=== PATIENT | female | born 1985 | race Caucasian/White ===

== ENCOUNTER 2017-01-27 19:07 | Emergency (ER) | payer OTHER ==
[~2017-01-27] VITALS: Ht 157.5 cm; Wt 94.0 kg
[~2017-01-27 19:07] MED LIST: CLC100 PO; DIPH25CA37 PO; LAMO25TA PO; OXYC-57 PO; PHEN-876 PO; SUMA20SP
[2017-01-27 19:14] VITALS: TEMP 37; Ht 157.5 cm; Wt 94.0 kg
[2017-01-27 20:36] LABS: HEMATOCRIT 44.8 % (37-47); MEAN CELL VOLUME 86.8 fL (80-100); MEAN CORPUSCULAR HEMOGLOBIN 29.7 pg (25-34); MEAN CORPUSCULAR HGB CONC 34.2 g/dl (32-36); MEAN PLATELET VOLUME 10.1 fL (7.4-10.4); PLATELET COUNT 264 K/uL (130-400); RED BLOOD COUNT 5.16 M/uL (4.2-5.4); WHITE BLOOD COUNT 8.97 K/uL (4.8-10.8)
--- NOTE | 2017-01-27 20:36 | DIAGNOSTIC IMAGING REPORT ---
CHEST ONE VIEW PORTABLE CLINICAL HISTORY: Chest pain. COMPARISON STUDY: Chest radiograph November 16, 2015. FINDINGS: Lung volumes are normal. No pneumothorax or pleural effusion is present. Pulmonary vascularity is normal. Cardiac size is normal. There is no evidence of pulmonary edema. IMPRESSION: No acute cardiopulmonary findings. Electronically signed by: Dameon Wu M.D. 01/27/2017 8:35 PM Dictated Date/Time: 01/27/2017 8:34 PM
[2017-01-27 20:46] LABS: PARTIAL THROMBOPLASTIN RATIO 1.1; PROTHROMBIN TIME (PATIENT) 10.7 SECONDS (9.0-12.0)
[2017-01-27 20:54] LABS: ALT/SGPT 17 U/L (12-78); AST/SGOT 12 U/L (15-37); BLOOD UREA NITROGEN 9 mg/dl (7-18); CALCIUM 8.9 mg/dl (8.5-10.1); CARBON DIOXIDE 29 mmol/L (21-32); CHLORIDE 106 mmol/L (98-107); CREATININE 0.95 mg/dl (0.60-1.20); GLUCOSE 83 mg/dl (70-99); POTASSIUM 3.5 mmol/L (3.5-5.1); SODIUM 139 mmol/L (136-145)
[2017-01-27 20:59] LABS: ALB/GLOB RATIO 0.9 (0.9-2); ALKALINE PHOSPHATASE 105 U/L (45-117)
[2017-01-27] MEDS ORDERED: IMTIN5 (21:31)
[2017-01-27] MEDS ORDERED: TRL300 PO (21:31)
[2017-01-27 22:05] VITALS: BP 111/97; PULSE 66; O2SAT 97
[2017-01-27] MEDS ORDERED: VNTHFA/IN INH (22:19)
[2017-01-27] MEDS ORDERED: ATV1 PO (22:22)
[2017-01-27] MEDS ORDERED: ONDA4TAB9 PO (22:22)
[2017-01-27] MEDS ORDERED: SRQ25 PO (22:22)
[2017-01-27] MEDS ORDERED: MTR/600 PO (22:22)
--- NOTE | 2017-01-28 00:29 | EMERGENCY ROOM VISIT NOTE ---
History Report prepared by Gelacio: Ruthann Mortensen Under the Supervision of: Dr. Zack Hall D.O. 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 The patient states that the episodes of pain last about 20-45 minutes. The patient states that she has a history of this chest pain and gets it every once in a while but does not recall the last time she had this pain. She states that she got the pain yesterday while she was gardening. She states that when she has bad anxiety she also experiences the pain and usually takes Ativan and it reduces the pain. The patient states that she is a smoke but denies any pain in jaw or arm, nausea, vomiting, diarrhea, coughing up blood. The patient states that she did have hysterectomy in July. The patient also denies any recent travel, recent surgeries, previous clots, or history of cancer. 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 Review of Systems See HPI for pertinent positives & negatives. A total of 10 systems reviewed and were otherwise negative. Past Medical & Surgical Medical Problems: (1) Acute anxiety (2) Asthma, Unspecified (3) Bipolar II disorder (4) Bronchitis (5) Cannabis abuse (6) Carbon monoxide poisoning (7) Carbon monoxide poisoning (8) Chest pain (9) Cholecystectomy (10) Chronic pelvic pain in female (11) Deliberate self-cutting (12) Depress Disorder-Unspec (13) Depression (14) Depression (15) Depression (16) Diverticulosis Colon (W/O Ment Of Hemorrhage) (17) Endometriosis (18) Endometriosis (19) Endoscopic retrograde cholangiopancreatography (20) Headache (21) Headache (22) Kidney stone (23) Migraine (24) Migraine (25) Migraine (26) Migraine headache (27) Migraine Unspecified W/O Intractable Migraine (28) Nausea (29) Nausea, vomiting, and diarrhea (30) Ovarian cyst (31) Pneumonia (32) Removal of ovarian cyst (33) Renal colic on left side (34) Renal colic on left side (35) SOB (shortness of breath) (36) Syncope (37) Tubal Ligation Status (38) Ureteral stent placement Surgical Problems: (1) S/P BSO (bilateral salpingo-oophorectomy) (2) S/P laparoscopic hysterectomy Family History Cancer Hypertension Kidney stone Lung disease Social History Smoking Status: Current Every Day Smoker Alcohol Use: none Drug Use: marijuana Marital Status: Housing Status: lives with family Occupation Status: unemployed Current/Historical Medications Scheduled Diphenhydramine Hcl (Benadryl Allergy), 50 MG PO PRN UD Estrogens, Conjugated (Premarin), 0.625 MG PO QAM Oxcarbazepine (Oxcarbazepine), 300 MG PO AMPM Pediatric Multiple Vitamin W/ (Flintstones Chewable), 1 TAB PO QAM Prazosin HCl (Prazosin HCl), 1 MG PO HS Quetiapine Fumarate (Quetiapine Fumarate), 25 MG PO HS Sumatriptan Succinate (Imitrex Nasal [place]), 1 SPRAY NA PRN UD Scheduled PRN Albuterol Hfa (Ventolin Hfa), 2 PUFFS INH QID PRN for SOB/Wheezing Fluticasone Propionate (Nasal) (Flonase Allergy Relief), 2 SPRAYS YOLIE DAILY PRN for Allergy Symptoms Ibuprofen (Ibuprofen), 600 MG PO Q6H PRN for Pain Lorazepam (Lorazepam), 1 MG PO Q6H PRN for Anxiety Ondansetron (Ondansetron HCl), 4 MG PO TID PRN for Nausea Allergies Coded Allergies: Chlorine (Verified Allergy, Unknown, BLEACH-ITCHY, 07/22/16) Topiramate (Verified Allergy, Unknown, low bp-fainting, 07/22/16) Prednisone (Verified Adverse Reaction, Intermediate, PSYCOTIC, 07/22/16) Propranolol (Verified Adverse Reaction, Intermediate, dizziness-LOW BP FAINTING, 07/22/16) Metoclopramide (Verified Adverse Reaction, Mild, makes me feel "like i am on speed", 07/22/16) pt Physical Exam Vital Signs Date Time Temp Pulse Resp B/P Pulse Ox O2 Delivery O2 Flow Rate FiO2 01/27/17 22:05 66 20 111/97 97 01/27/17 21:09 74 18 115/80 99 Room Air 01/27/17 20:30 96 Room Air 01/27/17 20:26 Room Air 01/27/17 20:17 75 01/27/17 20:13 74 133/89 100 Room Air 01/27/17 19:17 98 Room Air 01/27/17 19:14 37.0 87 20 130/83 98 Room Air Physical Exam GENERAL: Sitting up in bed, disheveled, alert, well appearing, well nourished, no distress, non-toxic EYE EXAM: normal conjunctiva OROPHARYNX: no exudate, no erythema, lips, buccal mucosa, and tongue normal and mucous membranes are moist NECK: supple, no nuchal rigidity, no adenopathy, non-tender LUNGS: Clear to auscultation. Normal chest wall mechanics HEART: no murmurs, S1 normal and S2 normal ABDOMEN: abdomen soft, non-tender, normo-active bowel sounds, no masses, no rebound or guarding. BACK: Back is symmetrical on inspection and there is no deformity, no midline tenderness, no CVA tenderness. SKIN: no rashes and no bruising UPPER EXTREMITIES: upper extremities are grossly normal. Radial pulses equal and bilateral. LOWER EXTREMITIES: No pitting edema. Calf pulse equal bilaterally. NEURO EXAM: Normal sensorium, cranial nerves II-XII grossly intact, normal speech, no gross weakness of arms, no gross weakness of legs. Medical Decision & Procedures Laboratory Results 01/27/17 20:22 01/27/17 20:22 Test 01/27/17 20:22 01/27/17 20:34 Red Blood Count 5.16 M/uL (4.2-5.4) Mean Corpuscular Volume 86.8 fL (80-100) Mean Corpuscular Hemoglobin 29.7 pg (25-34) Mean Corpuscular Hemoglobin Concent 34.2 g/dl (32-36) RDW Standard Deviation 40.7 fL (36.4-46.3) RDW Coefficient of Variation 12.7 % (11.5-14.5) Mean Platelet Volume 10.1 fL (7.4-10.4) Prothrombin Time 10.7 SECONDS (9.0-12.0) Prothromb Time International Ratio 1.0 (0.9-1.1) Activated Partial Thromboplast Time 27.4 SECONDS (21.0-31.0) Partial Thromboplastin Ratio 1.1 D-Dimer 300 ug/L FEU (0-500) Anion Gap 4.0 mmol/L (3-11) Est Creatinine Clear Calc Drug Dose 90.0 ml/min Estimated GFR () 91.2 Estimated GFR (Non- 78.7 BUN/Creatinine Ratio 9.0 (10-20) Calcium Level 8.9 mg/dl (8.5-10.1) Total Bilirubin 0.3 mg/dl (0.2-1) Aspartate Amino Transf (AST/SGOT) 12 U/L (15-37) Alanine Aminotransferase (ALT/SGPT) 17 U/L (12-78) Alkaline Phosphatase 105 U/L (45-117) Total Creatine Kinase 50 U/L (26-192) Creatine Kinase MB < 0.5 ng/ml (0.5-3.6) Creatine Kinase MB Ratio (0-3.0) Troponin I < 0.015 ng/ml (0-0.045) Total Protein 8.0 gm/dl (6.4-8.2) Albumin 3.8 gm/dl (3.4-5.0) Globulin 4.2 gm/dl (2.5-4.0) Albumin/Globulin Ratio 0.9 (0.9-2) Bedside Troponin I 0.000 ng/ml (0-0.045) Laboratory results per my review. ECG Indication: chest pain Rate (beats per minute): 77 Rhythm: sinus rhythm Findings: no ectopy, other (Normal axis, normal interval) ED Course ED COURSE: Vital signs were reviewed and showed normal vitals The patients medical record was reviewed The above diagnostic studies were performed and reviewed. ED treatments and interventions as stated above. 2024: The patient was evaluated in room C2B. A complete history and physical examination was performed. 2143: Upon reevaluation, the patient is resting comfortably.I discussed my findings with the patient and she understands and agrees with the treatment plan. She states that she believes that this pain is purely anxiety related and wishes to not stay to wait for repeated troponin.Based on the patients age, coexisting illnesses, exam and lab findings the decision to treat as an outpatient was made.The patient remained stable while under my care.The patient appeared well at the time of discharge.. Medical Decision Differential diagnoses includes but is not limited to acute coronary syndrome, myocardial infarction, pericarditis, pulmonary embolus, aortic dissection, pneumonia, pneumothorax, musculoskeletal, shingles, esophageal. Patient is a 32-year-old female who presents the ER for precordial chest pain which has been off and on present since yesterday. Pain is not worsened with exertion. She denies any history of diabetes, hypertension, hyperlipidemia or CAD. No history of sudden in her family at a young age. She also denies any swelling of her legs, coughing up blood, recent trips, recent surgeries, but does admit to smoking. No previous PEs. Symptoms are consistent with her previous bouts of anxiety. Labs were obtained. Chest x-ray and EKG were unremarkable. D-dimer was negative. Troponin was negative. Chest pain has been fairly persistent for the past 24 hours and with the negative troponin and her history I do not believe that this is cardiac. To comply with the Heartscore I recommended a repeat troponin for which she declined. She notes that this is purely her anxiety and requested to be discharged. I informed her of the risk and benefits of this and she was discharged following informed refusal of care. Discussed with Pt concerning signs and symptoms to watch out for. Pt was instructed to follow up with their PCP and discussed with the patient their option to return to the ED at anytime for persistent or worsening symptoms. The appropriate anticipatory guidance and out-patient management, including indications for return to the emergency department, were explained at length to the patient and understood. Impression Primary Impression: Precordial chest pain Scribe Attestation The scribe's documentation has been prepared under my direction and personally reviewed by me in its entirety. I confirm that the note above accurately reflects all work, treatment, procedures, and medical decision making performed by me. Departure Information Dispostion Home / Self-Care Referrals Tanesha Odonnell D.O. (PCP) Forms HOME CARE DOCUMENTATION FORM, IMPORTANT VISIT INFORMATION Patient Instructions My [facility] Additional Instructions Please follow up with your primary care doctor with in the next 24 hours. Any worsening of your symptoms, please return to the ED immediately. This includes recurrence of her chest pain, shortness of breath, passing out, coughing up blood, or any other concerning signs or symptoms from your standpoint.
[2017-04-10] MEDS ORDERED: PEDICHW50 PO (13:18)
[2017-04-10] MEDS ORDERED: DIPH1TAB87 PO (21:31)
== END 2017-01-27 22:06 | disposition home or self-care (01) ==
LOC: C.EDB 19:08 → C.EDC 22:06
DX: R07.2 Precordial pain (principal); J45.909 Unspecified asthma, uncomplicated; N80.9 Endometriosis, unspecified; F32.9 Major depressive disorder, single episode, unspecified; F41.9 Anxiety disorder, unspecified; F17.200 Nicotine dependence, unspecified, uncomplicated; Z87.442 Personal history of urinary calculi; Z87.01 Personal history of pneumonia (recurrent); Z90.710 Acquired absence of both cervix and uterus; Z90.49 Acquired absence of other specified parts of digestive tract; Z98.51 Tubal ligation status; Z90.722 Acquired absence of ovaries, bilateral; Z90.79 Acquired absence of other genital organ(s); Z98.890 Other specified postprocedural states; Z82.49 Family history of ischemic heart disease and other diseases of the circulatory system; Z84.1 Family history of disorders of kidney and ureter; Z79.899 Other long term (current) drug therapy

== ENCOUNTER 2017-02-07 20:08 | Inpatient (IN) | payer OTHER ==
[~2017-02-07] VITALS: Ht 157.5 cm; Wt 92.7 kg
[~2017-02-07 20:08] MED LIST changes: +ATV1 PO; -CLC100 PO; -DIPH25CA37 PO; +IMTIN5; -LAMO25TA PO; +MTR/600 PO; +ONDA4TAB9 PO; -OXYC-57 PO; -PHEN-876 PO; +SRQ25 PO; -SUMA20SP; +TRL300 PO; +VNTHFA/IN INH
[2017-02-07] MEDS ORDERED: LORAZEPAM 0.5 MG TAB SL STA (21:12)
[2017-02-07 21:34] LABS: BASO % 0.4 %; BASO ABS # 0.04 K/uL (0-0.2); COMPLETE YES; EOS % 2.7 %; HEMATOCRIT 43.6 % (37-47); IG% 0.2 %; LYMPH % 24.9 %; LYMPH ABS # 2.37 K/uL (1.2-3.4); MEAN CORPUSCULAR HEMOGLOBIN 30.7 pg (25-34); MEAN CORPUSCULAR HGB CONC 35.3 g/dl (32-36); MEAN PLATELET VOLUME 10.4 fL (7.4-10.4); MONO % 6.8 %; PLATELET COUNT 258 K/uL (130-400); RED BLOOD COUNT 5.01 M/uL (4.2-5.4); WHITE BLOOD COUNT 9.51 K/uL (4.8-10.8)
[2017-02-07 21:48] LABS: URINE APPEARANCE CLEAR (CLEAR); URINE BILIRUBIN NEG (NEG); URINE COLOR YELLOW; URINE NITRITE NEG (NEG); URINE SPECIFIC GRAVITY 1.009 (1.000-1.030); UROBILINOGEN NEG (NEG)
[2017-02-07 21:51] LABS: MANUAL MICROSCOPIC REQUIRED? NO; REVIEW REQ? NO
[2017-02-07 21:52] LABS: BUN/CREATININE RATIO 6.7 (10-20); CREATININE 0.89 mg/dl (0.60-1.20); POTASSIUM 3.7 mmol/L (3.5-5.1)
[2017-02-07 21:56] LABS: CALCIUM 9.4 mg/dl (8.5-10.1)
[2017-02-07 22:03] LABS: THYROID STIMULATING HORMONE 1.53 uIu/ml (0.300-4.500)
[2017-02-07 22:25] LABS: BENZODIAZEPINE, URINE NEG (NEG); COCAINE,URINE NEG (NEG); PHENCYCLIDINE, URINE NEG (NEG)
[2017-02-08] MEDS ORDERED: NURSING VERBAL MED ORDER ONE (00:30)
[2017-02-08 00:49] VITALS: O2SAT 96
[2017-02-08 00:55] VITALS: BP 114/83; PULSE 78; TEMP 36.7; Ht 157.5 cm; Wt 92.7 kg
[2017-02-08] MEDS ORDERED: LORAZEPAM 1 MG TAB PO PRN (01:30)
[2017-02-08] MEDS ORDERED: ACETAMINOPHEN 325 MG TAB PO PRN (01:30)
[2017-02-08] MEDS ORDERED: ALUMINUM/MAGNESIUM SUSP 30 ML UDC PO PRN (01:30)
[2017-02-08] MEDS ORDERED: SODIUM CHLORIDE 0.65% NA SOLN 45 ML (OCEAN) PRN (01:30)
[2017-02-08] MEDS ORDERED: QUETIAPINE FUMARATE 25 MG TAB PO ONE (01:30)
[2017-02-08] MEDS ORDERED: MAGNESIUM HYDROXIDE SUSP 30 ML UDC PO PRN (01:30)
[2017-02-08] MEDS ORDERED: BISMUTH SUBSALICYLATE PER ML OMNICELL CHARGE PO PRN (01:30)
[2017-02-08] MEDS ORDERED: hydrOXYzine HCL 25 MG TAB PO PRN (01:30)
[2017-02-08] MEDS: OXCARBAZEPINE 150 MG TAB PO SCH ×3 (01:56→21:24)
[2017-02-08] MEDS: PRAZOSIN HCL 1 MG CAP PO SCH ×2 (01:56→21:24)
--- NOTE | 2017-02-08 02:15 | EMERGENCY ROOM VISIT NOTE ---
History Report prepared by Gelacio: Luis Fernando Bird Under the Supervision of: Dr. Zack Hall D.O. First contact with patient: 20:56 Chief Complaint: MENTAL HEALTH EVALUATION Stated Complaint: SEVERE DEPRESSION, THOUGHTS OF CUTTING, ANXIETY History of Present Illness The patient is a 32 year old female who presents to the Emergency Room for worsening depression that began to deteriorate four months ago. The patient states that she started new medication for her depression four months ago due to a rash. The patient recently started Trileptal after being on Lamictal for six years. Since this medication change she notes that she has been "falling apart slowly. She cannot get her mood swings under control and recently she has not been eating and not leaving her bedroom. She also notes her paranoia is worse than usual, but she is not hallucinating in any way. She notes that she sometimes cutes herself to "make the pain stop" but she is not sure if she would cut deep enough to kill herself. She has never made any suicidal attempts in the past and has not been admitted for the past two years. She has no other complaints at this time. The patient denies headache, change in vision, fevers, chest pain, shortness of breath, nausea, vomiting, diarrhea, pain with urination , and melena. Source of History: patient Onset: 4 months ago Position: other (Psych ) Quality: other (Mental health (depression)) Timing: worsening Associated Symptoms: No SOB, No chest pain Review of Systems See HPI for pertinent positives & negatives. A total of 10 systems reviewed and were otherwise negative. Past Medical & Surgical Medical Problems: (1) Acute anxiety (2) Asthma, Unspecified (3) Bipolar II disorder (4) Bronchitis (5) Cannabis abuse (6) Carbon monoxide poisoning (7) Carbon monoxide poisoning (8) Chest pain (9) Cholecystectomy (10) Chronic pelvic pain in female (11) Deliberate self-cutting (12) Depress Disorder-Unspec (13) Depression (14) Depression (15) Depression (16) Diverticulosis Colon (W/O Ment Of Hemorrhage) (17) Endometriosis (18) Endometriosis (19) Endoscopic retrograde cholangiopancreatography (20) Headache (21) Headache (22) Kidney stone (23) Migraine (24) Migraine (25) Migraine (26) Migraine headache (27) Migraine Unspecified W/O Intractable Migraine (28) Nausea (29) Nausea, vomiting, and diarrhea (30) Ovarian cyst (31) Pneumonia (32) Removal of ovarian cyst (33) Renal colic on left side (34) Renal colic on left side (35) SOB (shortness of breath) (36) Syncope (37) Tubal Ligation Status (38) Ureteral stent placement Surgical Problems: (1) S/P BSO (bilateral salpingo-oophorectomy) (2) S/P laparoscopic hysterectomy Family History Cancer Hypertension Kidney stone Lung disease Social History Smoking Status: Current Every Day Smoker Alcohol Use: none Drug Use: marijuana Marital Status: Housing Status: lives with family Occupation Status: unemployed Current/Historical Medications Scheduled Diphenhydramine Hcl (Benadryl Allergy), 50 MG PO PRN UD Estrogens, Conjugated (Premarin), 0.625 MG PO QAM Oxcarbazepine (Oxcarbazepine), 300 MG PO AMPM Pediatric Multiple Vitamin W/ (Flintstones Chewable), 1 TAB PO QAM Prazosin HCl (Prazosin HCl), 1 MG PO HS Quetiapine Fumarate (Quetiapine Fumarate), 25 MG PO HS Sumatriptan Succinate (Imitrex Nasal [place]), 1 SPRAY NA PRN UD Scheduled PRN Albuterol Hfa (Ventolin Hfa), 2 PUFFS INH QID PRN for SOB/Wheezing Fluticasone Propionate (Nasal) (Flonase Allergy Relief), 2 SPRAYS YOLIE DAILY PRN for Allergy Symptoms Ibuprofen (Ibuprofen), 600 MG PO Q6H PRN for Pain Lorazepam (Lorazepam), 1 MG PO Q6H PRN for Anxiety Ondansetron (Ondansetron HCl), 4 MG PO TID PRN for Nausea Allergies Coded Allergies: Chlorine (Verified Allergy, Unknown, BLEACH-ITCHY, 02/07/17) Topiramate (Verified Allergy, Unknown, low bp-fainting, 02/07/17) Prednisone (Verified Adverse Reaction, Intermediate, PSYCOTIC, 02/07/17) Propranolol (Verified Adverse Reaction, Intermediate, dizziness-LOW BP FAINTING, 02/07/17) Metoclopramide (Verified Adverse Reaction, Mild, makes me feel "like i am on speed", 02/07/17) pt Physical Exam Vital Signs Date Time Temp Pulse Resp B/P Pulse Ox O2 Delivery O2 Flow Rate FiO2 02/07/17 22:58 80 114/83 96 Room Air 02/07/17 20:14 36.7 126 20 152/98 95 Room Air Physical Exam GENERAL: alert, well appearing, well nourished, no distress, non-toxic EYE EXAM: conjunctiva injected OROPHARYNX: no exudate, no erythema, lips, buccal mucosa, and tongue normal and mucous membranes are moist NECK: supple, no nuchal rigidity, no adenopathy, non-tender LUNGS: Clear to auscultation. Normal chest wall mechanics HEART: Tachycardiac. no murmurs, S1 normal and S2 normal ABDOMEN: abdomen soft, non-tender, normo-active bowel sounds, no masses, no rebound or guarding. BACK: Back is symmetrical on inspection and there is no deformity, no midline tenderness, no CVA tenderness. SKIN: no rashes and no bruising UPPER EXTREMITIES: upper extremities are grossly normal. LOWER EXTREMITIES: No pitting edema. NEURO EXAM: Normal sensorium, cranial nerves II-XII grossly intact, normal speech, no gross weakness of arms, no gross weakness of legs. PSYCH: Severely depressed, not eating or drinking. Thoughts of self-harm. Medical Decision & Procedures Laboratory Results 02/07/17 21:21 Red Blood Count 5.01, Mean Corpuscular Volume 87.0, Mean Corpuscular Hemoglobin 30.7, Mean Corpuscular Hemoglobin Concent 35.3, Mean Platelet Volume 10.4, Neutrophils (%) (Auto) 65.0, Lymphocytes (%) (Auto) 24.9, Monocytes (%) (Auto) 6.8, Eosinophils (%) (Auto) 2.7, Basophils (%) (Auto) 0.4, Neutrophils # (Auto) 6.17, Lymphocytes # (Auto) 2.37, Monocytes # (Auto) 0.65, Eosinophils # (Auto) 0.26, Basophils # (Auto) 0.04 02/07/17 21:21 Test 02/07/17 21:13 02/07/17 21:21 Urine Color YELLOW Urine Appearance CLEAR (CLEAR) Urine pH 7.0 (4.5-7.5) Urine Specific [place] 1.009 (1.000-1.030) Urine Protein NEG (NEG) Urine Glucose (UA) NEG (NEG) Urine Ketones NEG (NEG) Urine Occult Blood NEG (NEG) Urine Nitrite NEG (NEG) Urine Bilirubin NEG (NEG) Urine Urobilinogen NEG (NEG) Urine Leukocyte Esterase NEG (NEG) Urine Opiates Screen NEG (NEG) Urine Methadone, Qualitative NEG (NEG) Urine Barbiturates NEG (NEG) Urine Phencyclidine (PCP) Level NEG (NEG) Ur Amphetamine/Methamphetamine NEG (NEG) MDMA (Ecstasy) Screen NEG (NEG) Urine Benzodiazepines Screen NEG (NEG) Urine Cocaine Metabolite NEG (NEG) Urine Marijuana (THC) POS (NEG) White Blood Count 9.51 K/uL (4.8-10.8) Red Blood Count 5.01 M/uL (4.2-5.4) Hemoglobin 15.4 g/dL (12.0-16.0) Hematocrit 43.6 % (37-47) Mean Corpuscular Volume 87.0 fL (80-100) Mean Corpuscular Hemoglobin 30.7 pg (25-34) Mean Corpuscular Hemoglobin Concent 35.3 g/dl (32-36) Platelet Count 258 K/uL (130-400) Mean Platelet Volume 10.4 fL (7.4-10.4) Neutrophils (%) (Auto) 65.0 % Lymphocytes (%) (Auto) 24.9 % Monocytes (%) (Auto) 6.8 % Eosinophils (%) (Auto) 2.7 % Basophils (%) (Auto) 0.4 % Neutrophils # (Auto) 6.17 K/uL (1.4-6.5) Lymphocytes # (Auto) 2.37 K/uL (1.2-3.4) Monocytes # (Auto) 0.65 K/uL (0.11-0.59) Eosinophils # (Auto) 0.26 K/uL (0-0.5) Basophils # (Auto) 0.04 K/uL (0-0.2) RDW Standard Deviation 41.5 fL (36.4-46.3) RDW Coefficient of Variation 13.0 % (11.5-14.5) Immature Granulocyte % (Auto) 0.2 % Immature Granulocyte # (Auto) 0.02 K/uL (0.00-0.02) Anion Gap 7.0 mmol/L (3-11) Est Creatinine Clear Calc Drug Dose 95.3 ml/min Estimated GFR () 98.7 Estimated GFR (Non- 85.2 BUN/Creatinine Ratio 6.7 (10-20) Calcium Level 9.4 mg/dl (8.5-10.1) Total Bilirubin 0.2 mg/dl (0.2-1) Direct Bilirubin 0.1 mg/dl (0-0.2) Aspartate Amino Transf (AST/SGOT) 11 U/L (15-37) Alanine Aminotransferase (ALT/SGPT) 15 U/L (12-78) Alkaline Phosphatase 93 U/L (45-117) Total Protein 7.1 gm/dl (6.4-8.2) Albumin 3.5 gm/dl (3.4-5.0) Thyroid Stimulating Hormone (TSH) 1.530 uIu/ml (0.300-4.500) Ethyl Alcohol mg/dL < 3.0 mg/dl (0-3) Laboratory results per my review. Medications Administered Medications (Trade) Dose Ordered Sig/Carlie Route Start Time Stop Time Status Last Admin Dose Admin Lorazepam (Ativan Tab) 0.5 mg NOW STAT SL 02/07/17 21:12 02/07/17 21:13 DC 02/07/17 21:28 0.5 MG ED Course ED COURSE: Vital signs were reviewed and showed Tachycardiac vitals The patients medical record was reviewed The above diagnostic studies were performed and reviewed. ED treatments and interventions as stated above. 2102: The patient was evaluated in room A6. A complete history and physical examination was performed. 2111: Ordered Ativan 0.5 mg SL. 0026: The patient has been accepted by [address] [place] [address] and has been given a bed. 0030: Upon reevaluation, the patient is agreeable to inpatient treatment.I discussed my findings with the patient and she understands and agrees with the treatment plan. Based on the patients age, coexisting illnesses, exam and lab findings the decision to treat as an inpatient was made. The patient remained stable while under my care. The patient will be evaluated for further management. Medical Decision The patient's history was concerning for possible psychiatric disturbance. Differential diagnosis: Etiologies such as mood disorder, infection, hypoglycemia, electrolyte abnormalities, cardiac sources, intracerebral event, toxicologic, neurologic, as well as others were entertained. Patient is a 32-year-old female who presents the ER who is not taking care of herself extremely depressed unable to function with thoughts of self-harm. Does have a history of depression. CBC along with BMP, LFTs, TSH and UA are negative. Positive for marijuana. Patient was medically cleared and was evaluated by psychiatry and admitted on a 201. Impression Primary Impression: Depression Scribe Attestation The scribe's documentation has been prepared under my direction and personally reviewed by me in its entirety. I confirm that the note above accurately reflects all work, treatment, procedures, and medical decision making performed by me. Departure Information Dispostion Mental Health Acute Care (-[facility]) Referrals Tanesha Odonnell D.O. (PCP) Patient Instructions My [facility] Problem Qualifiers Primary Impression: Depression Depression Type: unspecified Qualified Codes: F32.9 - Major depressive disorder, single episode, unspecified
[2017-02-08 06:58] VITALS: BP_SYST 106; BP_SYST 112; BP_DIAS 69; BP_DIAS 80; PULSE 69; PULSE 99; TEMP 36.8
[2017-02-08] MEDS: ESTROGENS, CONJUGATED 0.625 MG TAB PO SCH (09:07)
[2017-02-08] MEDS: FLINTSTONES COMPLETE CHEWABLE TAB PO SCH (09:07)
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
[2017-02-08] MEDS: QUETIAPINE FUMARATE 25 MG TAB PO SCH (21:24)
[2017-02-09 06:50] VITALS: BP_SYST 102; BP_SYST 108; BP_DIAS 71; BP_DIAS 78; PULSE 65; PULSE 81; TEMP 36.5
[2017-02-09] MEDS: FLINTSTONES COMPLETE CHEWABLE TAB PO SCH (08:46)
[2017-02-09] MEDS: ESTROGENS, CONJUGATED 0.625 MG TAB PO SCH (08:46)
[2017-02-09] MEDS: OXCARBAZEPINE 150 MG TAB PO SCH ×2 (08:47→21:26)
[2017-02-09 09:22] LABS: CHOLESTEROL/HDL RATIO 3.8
--- NOTE | 2017-02-09 11:28 | Psychiatric Progress Notes ---
Progress Note Date of Service February 09, 2017. Interval History Rekha Reilly is a 32-year-old female who currently lives in [place] with her , 3 children, and parents, has a history of bipolar disorder type II, PTSD, cannabis abuse, and cluster B traits, and presented to the emergency room with suicidality and thoughts of cutting or overdosing on medication. She was admitted voluntarily. Chief Complaint "My anxiety is heightened. ". Subjective Patient was seen & assessed interval progress reviewed with Treatment Team. The patient is overvaluing/undervaluing members of the team over medications. We discuss her past med trials and the rash she developed after taking Lamictal for 6+ years. This occurred several months after her hysterectomy, developing a facial rash moving to her upper chest. She questions whether it was something other than the [place]. She would like to re-try the med because she had felt quite stable while on it. She says that her mood has been depressed, irritable and anxious since admission, but she denies SI/HI. She reports good sleep and appetite. She wants to spend time complaining, but was redirected to talking about her treatment. Review of Systems Constitutional: No chills, No fatigue, No fever, No problem reported, No sweats , No weakness, No weight loss ENT: No dental problems, No hearing loss, No nasal symptoms, No problem reported, No sore throat, No tinnitus, No trouble swallowing, No unusual epistaxis Respiratory: No cough, No dyspnea at rest, No dyspnea on exertion, No hemoptysis, No problem reported, No shortness of breath, No sputum, No wheezing Cardiovascular: No PND, No chest pain, No claudication, No edema, No orthopnea , No palpitations, No problem reported Abdomen: No GI bleeding, No constipation, No diarrhea, No nausea, No pain, No problem reported, No vomiting Musculoskeletal: No calf pain, No joint pain, No muscle pain, No problem reported, No swelling Neurologic: No balance problems, No memory loss, No numbness/tingling, No paralysis, No problem reported, No vertigo, No weakness Psychiatric: + anxiety, + depression symptoms Integumentary: No bleeding, No color change, No itch, No new/changing skin lesions, No problem reported, No rash Sleep Information Total Hours of Sleep: 10.25 Meal Information Percent of Breakfast Consumed: 90 Percent of Lunch Consumed: 0 Percent of Dinner Consumed: 75 Mental Status Exam During interview pt is: alert and oriented, cooperative Appearance: appropriately dressed, appeared stated age Eye contact is: poor Motor behavior is: steady gait & station Speech: normal in rate, rhythm & volume, other Affect: depressed, irritable, constricted Mood is: depressed, irritable Thought process: perseveration (complaining about her treatment) Thought content: cognitive distortions (makes numerous statements regarding things she'll refused to do in treatment as they may not shoe turner the way she wants) Suicidal thought are: denied Homicidal thoughts are: denied Hallucinations: denies auditory, denies visual Cognition: memory grossly intact, attention grossly intact, language grossly intact Intelligence estimated to be: average Insight: impaired Judgement: impaired Impression Adjusting to the unit, but remains depressed, irritable and anxious. After reviewing medication options again, she has agreed to retrial lamictal as an inpatient in the event that the rash was from another source. Will start a standard titration of 25 mg. daily increasing by 25 mg per week. Will continue other meds. Plan (1) Suicidal ideation -Every 15 minute checks for safety. -Encourage group participation, work on healthy coping skills and her discharge safety plan. -Family meeting, to review safety plan, including recommendations that she not have access to large amounts of medications due to her suicidality with thoughts to overdose. (2) Bipolar II disorder 02/08 -Coordinate care with outpatient psychiatrist, Dr. Thomas at [facility]. -Taper off Trileptal as ineffective per patient. Was on quetiapine 25mg qhs at home, which was increased to 50mg qhs on admission. Reviewed options of other mood stabilizers: she refuses to consider lithium, is concerned about potential weight gain with quetiapine, and asked about aripiprazole (but per records, was ineffective), also reviewed option of lurasidone (which may need PA). Patient became increasingly irritable during discussion of treatment options and abruptly left the interview room. Will continue quetiapine 50mg qhs for now, and order fasting labs for tomorrow. Continue to explore options. 02/09 - Re-challenge Lamictal 25 mg. daily observing for rash (3) PTSD (post-traumatic stress disorder) Continue home dose of prazosin. Strongly encourage individual therapy as an outpatient. (4) Cannabis abuse Patient has been educated repeatedly during past admissions about the risks of ongoing cannabis use, and the recommendations for abstinence, but has consistently refused to change her behavior. Again today we reviewed the risks of ongoing use, including worsening mood, anxiety, amotivation, low energy, interference with medications working properly, financial impact, and legal risk. She remained unwilling to consider abstinence, saying she "needs meds to work do to that. (5) Cluster B personality disorder Significant component of personality disorder, with inability to accept responsibility for her treatment and wellness, wanting medications to fix all of her issues, interpersonal difficulties, and mood swings in the context of emotional reactivity. 02/09 - Provide consistent boundaries - Assist the patient to remain focused on her own treatment issues (6) Obesity (BMI 30-39.9) Encourage healthy diet, exercise, and weight loss. (7) Nicotine abuse Patient was offered education about smoking cessation and nicotine replacement, and refused. We will continue with motivational interviewing. Discharge / Aftercare Planning Primary Care Physician: Name: Dr Odonnell Appointment Notes: As needed Psychiatrist: Name: Dr Thomas Date of Appointment: March 01, 2017 Time of Appointment: 10:30am Therapist: Name: Comfort Lora LPC Date of Appointment: February 13, 2017 Time of Appointment: 1:00pm Brick Loader: Name: none Visit Code E&M Code: 22540 Inventory Assets Strengths: Has young children, states a desire to get well Risk Factors Assessment : Yes /single/: No Health problems: Yes Mental Health Diagnoses: Yes Substance use disorders: Yes Previous attempt: No Family history of suicide: Yes Previous psychiatric stay: Yes Smoker: Yes Protective Factors Assessment : Yes Responsible for young children: Yes Employed: Yes Stable relationships: Yes Supportive family: Yes Good rapport with provider: Yes (likes Dr. Pacheco, but angry about multiple therapists quitting) Data Vital Signs Last 24 Hrs: Date Time Temp Pulse Resp B/P Pulse Ox O2 Delivery O2 Flow Rate FiO2 02/09/17 06:50 36.5 65 16 102/71 81 108/78 Meds Administered Last 24 Hrs: Meds Administered (Past 24Hrs) Medications (Trade) Dose Ordered Sig/Carlie Route Start Time Stop Time Status Last Admin Dose Admin Lorazepam (Ativan Tab) 0.5 mg NOW STAT SL 02/07/17 21:12 02/07/17 21:13 DC 02/07/17 21:28 0.5 MG Oxcarbazepine (Trileptal Tab) 300 mg BID PO 02/08/17 01:30 02/08/17 13:28 DC 02/08/17 09:07 300 MG Estrogens Conjugated (Premarin Tab) 0.625 mg QAM PO 02/08/17 09:00 03/10/17 08:59 02/09/17 08:46 0.625 MG Multivitamins (Flintstones Complete Tab) 1 tab QAM PO 02/08/17 09:00 03/10/17 08:59 02/09/17 08:46 1 TAB Prazosin HCl (Prazosin) 1 mg HS PO 02/08/17 01:30 03/10/17 01:29 02/08/17 21:24 1 MG Quetiapine Fumarate (seroQUEL TAB) 25 mg HS PO 02/08/17 22:00 03/10/17 21:59 02/08/17 21:24 25 MG Quetiapine Fumarate (seroQUEL TAB) 50 mg ONE ONCE PO 02/08/17 01:30 02/08/17 01:31 DC 02/08/17 01:57 50 MG Oxcarbazepine (Trileptal Tab) 150 mg Taper BID PO 02/08/17 22:00 02/12/17 21:59 02/09/17 08:47 150 MG Lab Results Last 24 Hrs: Last 24 Hours Test 02/09/17 08:35 Fasting Glucose 79 mg/dl Triglycerides Level 88 mg/dl Cholesterol Level 212 mg/dl HDL Cholesterol 56 mg/dl LDL Cholesterol, Calculated 138 mg/dl VLDL Cholesterol, Calculated 18 mg/dl Cholesterol/HDL Ratio 3.8
[2017-02-09] MEDS: hydrOXYzine HCL 25 MG TAB PO PRN (16:10)
[2017-02-09] MEDS: PRAZOSIN HCL 1 MG CAP PO SCH (21:26)
[2017-02-09] MEDS: QUETIAPINE FUMARATE 25 MG TAB PO SCH (21:26)
[2017-02-10 07:05] VITALS: BP_SYST 122; BP_SYST 126; BP_DIAS 76; BP_DIAS 85; PULSE 43; PULSE 65; TEMP 36.3
[2017-02-10] MEDS: OXCARBAZEPINE 150 MG TAB PO SCH (08:43)
[2017-02-10] MEDS: FLINTSTONES COMPLETE CHEWABLE TAB PO SCH (08:43)
[2017-02-10] MEDS: ESTROGENS, CONJUGATED 0.625 MG TAB PO SCH (08:43)
--- NOTE | 2017-02-10 12:38 | Psychiatric Progress Notes ---
Progress Note Date of Service February 10, 2017. Interval History Rekha Reilly is a 32-year-old female who currently lives in [place] with her , 3 children, and parents, has a history of bipolar disorder type II, PTSD, cannabis abuse, and cluster B traits, and presented to the emergency room with suicidality and thoughts of cutting or overdosing on medication. She was admitted voluntarily. Chief Complaint "Rough this morning. ". Subjective Patient was seen & assessed interval progress reviewed with Treatment Team. The patient says that she had a distressing call from her last evening telling her that her commission check that she had expected to be several thousand dollars, was on 200. She says that they did not calculate her work hours in the correct way, and will be calling her boss today to clarify. She was very disappointed, as she was hoping to be able to buy a new car and do some other things with that check. She anticipates that her boss will be open to discussion. This AM she woke feeling "pissed off" because of it, but is starting to calm down. Her anxiety was spiked this AM when she saw security on the unit for another patients. Intellectually she knew they were not there for her, but she has a fear of police and so was anxious until they left. She denies any further SI. She denies rash after starting Lamictal yesterday. her 72 notice remains in and will tomorrow, and does not think that she wants to revoke it. Review of Systems Constitutional: No chills, No fatigue, No fever, No problem reported, No sweats , No weakness, No weight loss ENT: No dental problems, No hearing loss, No nasal symptoms, No problem reported, No sore throat, No tinnitus, No trouble swallowing, No unusual epistaxis Respiratory: No cough, No dyspnea at rest, No dyspnea on exertion, No hemoptysis, No problem reported, No shortness of breath, No sputum, No wheezing Cardiovascular: No PND, No chest pain, No claudication, No edema, No orthopnea , No palpitations, No problem reported Abdomen: No GI bleeding, No constipation, No diarrhea, No nausea, No pain, No problem reported, No vomiting Musculoskeletal: No calf pain, No joint pain, No muscle pain, No problem reported, No swelling Psychiatric: + anxiety, + problem reported (irritability) Integumentary: No bleeding, No color change, No itch, No new/changing skin lesions, No problem reported, No rash Sleep Information Total Hours of Sleep: 7.50 Meal Information Percent of Breakfast Consumed: 65 Percent of Lunch Consumed: 75 Percent of Dinner Consumed: 75 Mental Status Exam During interview pt is: alert and oriented, cooperative Appearance: appropriately dressed, appeared stated age Eye contact is: poor Motor behavior is: steady gait & station Speech: normal in rate, rhythm & volume, other Affect: depressed, irritable, constricted Mood is: depressed, irritable Thought process: linear, logical Thought content: reality based without delusions Suicidal thought are: denied Homicidal thoughts are: denied Hallucinations: denies auditory, denies visual Cognition: memory grossly intact, attention grossly intact, language grossly intact Intelligence estimated to be: average Insight: impaired Judgement: impaired Impression Irritability remains, triggered after hearing some bad financial news. No evidence of rash after starting Lamictal, so will continue. 72 hr notice in, expires tomorrow. If she doesn't revoke, will proceed with discharge as she did not make an act in furtherance of SI. Plan (1) Suicidal ideation -Every 15 minute checks for safety. -Encourage group participation, work on healthy coping skills and her discharge safety plan. -Family meeting, to review safety plan, including recommendations that she not have access to large amounts of medications due to her suicidality with thoughts to overdose. (2) Bipolar II disorder 02/08 -Coordinate care with outpatient psychiatrist, Dr. Thomas at [facility]. -Taper off Trileptal as ineffective per patient. Was on quetiapine 25mg qhs at home, which was increased to 50mg qhs on admission. Reviewed options of other mood stabilizers: she refuses to consider lithium, is concerned about potential weight gain with quetiapine, and asked about aripiprazole (but per records, was ineffective), also reviewed option of lurasidone (which may need PA). Patient became increasingly irritable during discussion of treatment options and abruptly left the interview room. Will continue quetiapine 50mg qhs for now, and order fasting labs for tomorrow. Continue to explore options. 02/09 - Re-challenge Lamictal 25 mg. daily observing for rash 02/10 - Continue meds - 72 hr notice will tomorrow, and anticipate discharge at that time. (3) PTSD (post-traumatic stress disorder) Continue home dose of prazosin. Strongly encourage individual therapy as an outpatient. (4) Cannabis abuse Patient has been educated repeatedly during past admissions about the risks of ongoing cannabis use, and the recommendations for abstinence, but has consistently refused to change her behavior. Again today we reviewed the risks of ongoing use, including worsening mood, anxiety, amotivation, low energy, interference with medications working properly, financial impact, and legal risk. She remained unwilling to consider abstinence, saying she "needs meds to work do to that. (5) Cluster B personality disorder Significant component of personality disorder, with inability to accept responsibility for her treatment and wellness, wanting medications to fix all of her issues, interpersonal difficulties, and mood swings in the context of emotional reactivity. 02/09 - Provide consistent boundaries - Assist the patient to remain focused on her own treatment issues (6) Obesity (BMI 30-39.9) Encourage healthy diet, exercise, and weight loss. (7) Nicotine abuse Patient was offered education about smoking cessation and nicotine replacement, and refused. We will continue with motivational interviewing. Discharge / Aftercare Planning Primary Care Physician: Name: Dr Odonnell Appointment Notes: As needed Psychiatrist: Name: Dr Thomas Date of Appointment: March 01, 2017 Time of Appointment: 10:30am Therapist: Name: Comfort Lora LPC Date of Appointment: February 13, 2017 Time of Appointment: 1:00pm Store Product Demonstrator: Name: none Visit Code E&M Code: 87491 Inventory Assets Strengths: Has young children, states a desire to get well Risk Factors Assessment : Yes /single/: No Health problems: Yes Mental Health Diagnoses: Yes Substance use disorders: Yes Previous attempt: No Family history of suicide: Yes Previous psychiatric stay: Yes Smoker: Yes Protective Factors Assessment : Yes Responsible for young children: Yes Employed: Yes Stable relationships: Yes Supportive family: Yes Good rapport with provider: Yes (likes Dr. Pacheco, but angry about multiple therapists quitting) Data Vital Signs Last 24 Hrs: Date Time Temp Pulse Resp B/P Pulse Ox O2 Delivery O2 Flow Rate FiO2 02/10/17 07:05 36.3 65 18 126/76 43 122/85 Meds Administered Last 24 Hrs: Meds Administered (Past 24Hrs) Medications (Trade) Dose Ordered Sig/Carlie Route Start Time Stop Time Status Last Admin Dose Admin Quetiapine Fumarate (seroQUEL TAB) 25 mg HS PO 02/08/17 22:00 03/10/17 21:59 02/09/17 21:26 25 MG Oxcarbazepine (Trileptal Tab) 150 mg Taper BID PO 02/08/17 22:00 02/12/17 21:59 02/10/17 08:43 150 MG Lamotrigine (Lamictal Tab) 25 mg QAM PO 02/10/17 09:00 03/12/17 08:59 02/10/17 08:43 25 MG Lamotrigine (Lamictal Tab) 25 mg 1128 ONCE PO 02/09/17 11:28 02/09/17 11:46 DC 02/09/17 12:06 25 MG Lab Results Last 24 Hrs: 02/07/17 21:21 Red Blood Count 5.01, Mean Corpuscular Volume 87.0, Mean Corpuscular Hemoglobin 30.7, Mean Corpuscular Hemoglobin Concent 35.3, Mean Platelet Volume 10.4, Neutrophils (%) (Auto) 65.0, Lymphocytes (%) (Auto) 24.9, Monocytes (%) (Auto) 6.8, Eosinophils (%) (Auto) 2.7, Basophils (%) (Auto) 0.4, Neutrophils # (Auto) 6.17, Lymphocytes # (Auto) 2.37, Monocytes # (Auto) 0.65, Eosinophils # (Auto) 0.26, Basophils # (Auto) 0.04 02/07/17 21:21 Test 02/07/17 21:13 02/07/17 21:21 02/09/17 08:35 Urine Color YELLOW Urine Appearance CLEAR (CLEAR) Urine pH 7.0 (4.5-7.5) Urine Specific [place] 1.009 (1.000-1.030) Urine Protein NEG (NEG) Urine Glucose (UA) NEG (NEG) Urine Ketones NEG (NEG) Urine Occult Blood NEG (NEG) Urine Nitrite NEG (NEG) Urine Bilirubin NEG (NEG) Urine Urobilinogen NEG (NEG) Urine Leukocyte Esterase NEG (NEG) Urine Opiates Screen NEG (NEG) Urine Methadone, Qualitative NEG (NEG) Urine Barbiturates NEG (NEG) Urine Phencyclidine (PCP) Level NEG (NEG) Ur Amphetamine/Methamphetamine NEG (NEG) MDMA (Ecstasy) Screen NEG (NEG) Urine Benzodiazepines Screen NEG (NEG) Urine Cocaine Metabolite NEG (NEG) Urine Marijuana (THC) POS (NEG) White Blood Count 9.51 K/uL (4.8-10.8) Red Blood Count 5.01 M/uL (4.2-5.4) Hemoglobin 15.4 g/dL (12.0-16.0) Hematocrit 43.6 % (37-47) Mean Corpuscular Volume 87.0 fL (80-100) Mean Corpuscular Hemoglobin 30.7 pg (25-34) Mean Corpuscular Hemoglobin Concent 35.3 g/dl (32-36) Platelet Count 258 K/uL (130-400) Mean Platelet Volume 10.4 fL (7.4-10.4) Neutrophils (%) (Auto) 65.0 % Lymphocytes (%) (Auto) 24.9 % Monocytes (%) (Auto) 6.8 % Eosinophils (%) (Auto) 2.7 % Basophils (%) (Auto) 0.4 % Neutrophils # (Auto) 6.17 K/uL (1.4-6.5) Lymphocytes # (Auto) 2.37 K/uL (1.2-3.4) Monocytes # (Auto) 0.65 K/uL (0.11-0.59) Eosinophils # (Auto) 0.26 K/uL (0-0.5) Basophils # (Auto) 0.04 K/uL (0-0.2) RDW Standard Deviation 41.5 fL (36.4-46.3) RDW Coefficient of Variation 13.0 % (11.5-14.5) Immature Granulocyte % (Auto) 0.2 % Immature Granulocyte # (Auto) 0.02 K/uL (0.00-0.02) Anion Gap 7.0 mmol/L (3-11) Est Creatinine Clear Calc Drug Dose 95.3 ml/min Estimated GFR () 98.7 Estimated GFR (Non- 85.2 BUN/Creatinine Ratio 6.7 (10-20) Calcium Level 9.4 mg/dl (8.5-10.1) Total Bilirubin 0.2 mg/dl (0.2-1) Direct Bilirubin 0.1 mg/dl (0-0.2) Aspartate Amino Transf (AST/SGOT) 11 U/L (15-37) Alanine Aminotransferase (ALT/SGPT) 15 U/L (12-78) Alkaline Phosphatase 93 U/L (45-117) Total Protein 7.1 gm/dl (6.4-8.2) Albumin 3.5 gm/dl (3.4-5.0) Thyroid Stimulating Hormone (TSH) 1.530 uIu/ml (0.300-4.500) Ethyl Alcohol mg/dL < 3.0 mg/dl (0-3) Fasting Glucose 79 mg/dl (70-99) Triglycerides Level 88 mg/dl (0-150) Cholesterol Level 212 mg/dl (0-200) HDL Cholesterol 56 mg/dl LDL Cholesterol, Calculated 138 mg/dl VLDL Cholesterol, Calculated 18 mg/dl Cholesterol/HDL Ratio 3.8
[2017-02-10] MEDS: hydrOXYzine HCL 25 MG TAB PO PRN (18:06)
[2017-02-10] MEDS: QUETIAPINE FUMARATE 25 MG TAB PO SCH (21:24)
[2017-02-10] MEDS: PRAZOSIN HCL 1 MG CAP PO SCH (21:25)
[2017-02-11 06:39] VITALS: BP 105/67; PULSE 64; PULSE 91; TEMP 36.5
[2017-02-11] MEDS: OXCARBAZEPINE 150 MG TAB PO SCH (08:35)
[2017-02-11] MEDS: FLINTSTONES COMPLETE CHEWABLE TAB PO SCH (08:35)
[2017-02-11] MEDS: ESTROGENS, CONJUGATED 0.625 MG TAB PO SCH (08:35)
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
[2017-02-11] MEDS ORDERED: SRQ25 PO (10:54)
[2017-02-11] MEDS ORDERED: TRL150 PO (10:54)
[2017-02-11] MEDS ORDERED: LMC25 PO (11:32)
[2017-02-11] MEDS ORDERED: QUETIAPINE FUMARATE 25 MG TAB PO SCH (22:00)
[2017-04-10] MEDS ORDERED: PEDICHW50 PO (13:18)
[2017-04-10] MEDS ORDERED: DIPH1TAB87 PO (21:31)
== END 2017-02-11 11:50 | disposition home or self-care (01) | DRG 881 ==
LOC: C.EDB 20:09 → C.MHU 02-08 00:34
PROVIDERS: ADMIT Student in an Organized Health Care Education/Training Program; ATTEND Psychiatry & Neurology Psychiatry
DX: F32.9 Major depressive disorder, single episode, unspecified (principal); F41.9 Anxiety disorder, unspecified; F43.10 Post-traumatic stress disorder, unspecified; F12.10 Cannabis abuse, uncomplicated; F17.200 Nicotine dependence, unspecified, uncomplicated; J45.909 Unspecified asthma, uncomplicated; E66.9 Obesity, unspecified; Z90.49 Acquired absence of other specified parts of digestive tract; Z68.30 Body mass index [BMI] 30.0-30.9, adult

== ENCOUNTER 2017-02-28 23:00 | Emergency (ER) | payer OTHER ==
[~2017-02-28] VITALS: Ht 157.5 cm; Wt 92.2 kg
[~2017-02-28 23:00] MED LIST changes: -ATV1 PO; +LMC25 PO; +TRL150 PO; -TRL300 PO
[2017-02-28 23:01] VITALS: TEMP 36.8; Ht 157.5 cm; Wt 92.2 kg
[2017-02-28] MEDS ORDERED: ALBUTEROL HFA 8 GM INHALER INH STA ×2 (23:05→23:52)
[2017-02-28] MEDS ORDERED: LIDOCAINE HCL 2% VISC SOLN 20 ML UDC MT STA (23:05)
[2017-02-28] MEDS ORDERED: ALBUT/IPRATROP 3MG/0.5MG NEB 3 ML VIAL INH STA (23:05)
[2017-02-28] MEDS ORDERED: QUET1TAB32 PO (23:20)
[2017-02-28] MEDS ORDERED: LAMO25TA PO (23:20)
[2017-02-28 23:40] VITALS: BP 110/74; O2SAT 95
[2017-02-28 23:42] VITALS: PULSE 83
--- NOTE | 2017-02-28 23:51 | EMERGENCY ROOM VISIT NOTE ---
History First contact with patient: 23:04 Chief Complaint: COUGH Stated Complaint: COUGH, LUNG PAIN, VOMITING History of Present Illness The patient is a 32 year old female who presents to the Emergency Room with complaints of cough, congestion, scratchy throat for the past few days who smokes. Patient had bronchitis before and symptoms of similar. She is allergic to prednisone. Patient states she's a coughing fit and then occasionally vomits. She does not feel nauseous. Patient denies chest pain, dyspnea, headache, neck status, abdominal pain, lightheadedness or dizziness. She is tolerated by mouth fluids and food. Review of Systems See HPI for pertinent positives & negatives. A total of 10 systems reviewed and were otherwise negative. Past Medical/Surgical History Medical Problems: (1) Acute anxiety (2) Asthma, Unspecified (3) Bipolar II disorder (4) Bronchitis (5) Cannabis abuse (6) Carbon monoxide poisoning (7) Chest pain (8) Cholecystectomy (9) Chronic pelvic pain in female (10) Cluster B personality disorder (11) Deliberate self-cutting (12) Depress Disorder-Unspec (13) Diverticulosis Colon (W/O Ment Of Hemorrhage) (14) Endometriosis (15) Endoscopic retrograde cholangiopancreatography (16) Kidney stone (17) Migraine (18) Migraine Unspecified W/O Intractable Migraine (19) Nausea (20) Nausea, vomiting, and diarrhea (21) Nicotine abuse (22) Obesity (BMI 30-39.9) (23) Pneumonia (24) PTSD (post-traumatic stress disorder) (25) Removal of ovarian cyst (26) Renal colic on left side (27) SOB (shortness of breath) (28) Syncope (29) Tubal Ligation Status (30) Ureteral stent placement Surgical Problems: (1) S/P BSO (bilateral salpingo-oophorectomy) (2) S/P laparoscopic hysterectomy Family History Cancer Hypertension Kidney stone Lung disease Social History Smoking Status: Current Every Day Smoker Alcohol Use: none Drug Use: marijuana Marital Status: Housing Status: lives with family Occupation Status: unemployed Current/Historical Medications Scheduled Diphenhydramine Hcl (Benadryl Allergy), 50 MG PO PRN UD Estrogens, Conjugated (Premarin), 0.625 MG PO QAM Lamotrigine (Lamictal), 25 MG PO QAM Pediatric Multiple Vitamin W/ (Flintstones Chewable), 1 TAB PO QAM Prazosin HCl (Prazosin HCl), 1 MG PO HS Quetiapine Fumarate (Seroquel), 50 MG PO HS Scheduled PRN Fluticasone Propionate (Nasal) (Flonase Allergy Relief), 2 SPRAYS YOLIE DAILY PRN for Allergy Symptoms Ibuprofen (Ibuprofen), 600 MG PO Q6H PRN for Pain Allergies Coded Allergies: Chlorine (Verified Allergy, Unknown, BLEACH-ITCHY, 02/28/17) Topiramate (Verified Allergy, Unknown, low bp-fainting, 02/28/17) Prednisone (Verified Adverse Reaction, Intermediate, PSYCOTIC, 02/28/17) Propranolol (Verified Adverse Reaction, Intermediate, dizziness-LOW BP FAINTING, 02/28/17) Metoclopramide (Verified Adverse Reaction, Mild, makes me feel "like i am on speed", 02/28/17) pt Physical Exam Vital Signs Date Time Temp Pulse Resp B/P Pulse Ox O2 Delivery O2 Flow Rate FiO2 02/28/17 23:42 83 02/28/17 23:40 95 Room Air 02/28/17 23:40 89 18 110/74 95 Room Air 02/28/17 23:20 Room Air 02/28/17 23:01 36.8 93 16 140/86 98 Room Air Physical Exam PHYSICAL EXAM: Vital Signs: Reviewed Nurse's notes. Oxygen saturation was 98% on room air. GENERAL: Pleasant female, Alert, oriented and coherent. The patient is able to speak in complete sentences. NECK: Supple, non-tender. CHEST : Symmetrical expansion. no retractions no accessory muscle use. HEART: Regular rate and normal heart sounds, no murmur, gallop or rub. LUNGS: Breath sounds equal but significantly diminished in intensity on both sides. Bilateral wheezes heard but no rales or pleuritic rub. SKIN: The skin was without rashes, erythema, edema, or bruising. There is no tenting of the skin. Capillary reflex less than 2 seconds. HEAD: Normocephalic atraumatic. EARS: External auditory canals clear, tympanic membranes pearly cardona without erythema or effusion bilaterally. EYES: Pupils equal round and reactive to light and accommodation. Conjunctivae without injection, sclerae without icterus. Extraocular movements intact. NOSE: Patent, turbinates without inflammation or discharge. No sinus tenderness. MOUTH: Mucous membranes moist. Pharynx without erythema or exudate. Uvula midline. Airway patent. Tongue does not deviate. ABDOMEN: Positive bowel sounds x 4. Normal tympanic percussion. Soft, nontender, without masses or organomegaly. Patel sign negative. No guarding or rebound tenderness. MUSCULOSKELETAL: No muscle atrophy, erythema, or edema noted. NEURO: Patient was alert and oriented to person place and time. Normal sensation to light and sharp touch. No focal neurological deficits. Medical Decision & Procedures Medications Administered Medications (Trade) Dose Ordered Sig/Carlie Route Start Time Stop Time Status Last Admin Dose Admin Albuterol/ Ipratropium (Duoneb) 3 ml NOW STAT INH 02/28/17 23:05 02/28/17 23:08 DC 02/28/17 23:18 3 ML Lidocaine HCl (Viscous Lidocaine 2% Soln) 10 ml NOW STAT MT 02/28/17 23:05 02/28/17 23:08 DC 02/28/17 23:18 10 ML ED Course Prior records/ancillary studies reviewed. Triage Nursing notes reviewed. Additional history obtained from family. The patient's history was concerning for a cough and sore throat. Differential diagnosis: Etiologies such as viral syndrome, tonsillitis, streptococcal pharyngitis, mononucleosis, peritonsillar abscess, retropharyngeal abscess, otitis, pneumonia , influenza, as well as others were entertained. ER treatment provided: Nebulizer, albuterol, doxycycline On reassessment the patient felt better. Diagnostics interpreted by me: The labs revealed neg strep Imaging studies: Chest x-ray with no acute consolidation, pneumothorax or free air per my interpretation This appears to be consistent with acute bronchitis with wheezing. Patient felt much better after being medicated as above. She states she normally needs antibiotics for her bronchitis. She continues to smoke. She was strongly encouraged to quit smoking and to take medicines as directed. She is advised follow-up family care in a few days or here in the ER sooner for high fevers, difficulty breathing, lethargy, worsening signs or symptoms or as needed. Patient had no signs of meningitis or airway compromise. She was well- appearing.. By the evaluation outlined above emergent etiologies such as peritonsillar abscess, retropharyngeal abscess, otitis, pneumonia, meningitis, urinary tract infection, sepsis, bacteremia, as well as others were deemed relatively unlikely. Patient is allergic to prednisone. The pt informed about the findings as listed above. All questions were answered and pleased with the treatment. Return instructions were outlined and the patient was discharged in stable condition. Outpatient prescription management: doxy Referral: The patient was referred back to their primary care physician for follow-up in 2 to 3 days for a recheck of the current condition. case reviewed with my Attending Medical Decision as above Impression Primary Impression: Acute wheezy bronchitis Departure Information Dispostion Home / Self-Care Condition GOOD Referrals Tanesha Odonnell D.O. (PCP) Patient Instructions My [facility] Additional Instructions DO NOT drive, drink alcohol, operate machinery, or perform dangerous activities today. You were given medications in the ER that can affect your ability to safely function or operate a vehicle. Doxycycline 100mg: Take one pill twice daily for seven days for your infection. Take with food, but avoid dairy. Avoid prolonged sun exposure since this medication makes you temporarily more susceptible to sunburns. All antibiotics can cause diarrhea. If this occurs and you feel worse or it does not resolve in 1-2 days follow up with your doctor or return to the Emergency Department as this could be signs of serious underlying problems. Any medication can cause an allergic reaction, stop the pills immediately and return to the ER for rash, hives, breathing difficulties, or swelling. Albuterol Inhaler: Take 2 puffs four times daily for seven days, then as needed. Acetaminophen(Tylenol) may be used for fever or pain. Use 1000mg every six hours as needed. Avoid using more than 3000mg in a 24 hour period. AND/OR Ibuprofen(Motrin, Advil) may be used for fever or pain. Use 600mg every six hours as needed. Take with food. Avoid using more than 2400mg in a 24 hour period. Do not use 2400mg per day for more than three consecutive days without physician direction. Prolonged inappropriate use can lead to stomach upset or ulcers. Viscous lidocaine: use one teaspoon every six hours only as needed for severe cough/ sore throat. Avoid alcohol with this medication. Controlling your fever with Tylenol and Ibuprofen as above will make you feel better. Rest and drink plenty of fluids. Avoid strenuous activity until your symptoms resolve and your breathing returns to normal. Continue current medications. Return to the ER for chest pain, difficulty breathing, persistent fevers, vomiting, worsening of your condition, or as needed. Follow-up with family care in 2-3 days.
[2017-02-28] MEDS ORDERED: DOXY100C2 PO (23:53)
[2017-03-01] MEDS ORDERED: DOXYCYCLINE HYCLATE 100 MG CAP PO ONE
[2017-03-01] MEDS ORDERED: LIDO2SOL19 PO (00:16)
--- NOTE | 2017-03-01 08:20 | DIAGNOSTIC IMAGING REPORT ---
CHEST 2 VIEWS ROUTINE HISTORY: cough COMPARISON: Chest 01/27/2017. FINDINGS: The lungs are clear. Cardiac silhouette is normal in size. No pleural effusions. No pneumothorax. Cholecystectomy. IMPRESSION: No acute process. Electronically signed by: Teto Vaughn M.D. 03/01/2017 8:19 AM Dictated Date/Time: 03/01/2017 8:18 AM
[2017-04-10] MEDS ORDERED: PEDICHW50 PO (13:18)
[2017-04-10] MEDS ORDERED: DIPH1TAB87 PO (21:31)
== END 2017-03-01 00:04 | disposition home or self-care (01) ==
LOC: C.EDB 23:00 → C.EDA 03-01 00:04
DX: J45.909 Unspecified asthma, uncomplicated (principal); J20.9 Acute bronchitis, unspecified; F41.9 Anxiety disorder, unspecified; F32.9 Major depressive disorder, single episode, unspecified; F17.200 Nicotine dependence, unspecified, uncomplicated; Z88.8 Allergy status to other drugs, medicaments and biological substances; Z91.5 Personal history of self-harm; Z87.442 Personal history of urinary calculi; Z87.01 Personal history of pneumonia (recurrent); Z98.51 Tubal ligation status; Z90.49 Acquired absence of other specified parts of digestive tract; Z90.722 Acquired absence of ovaries, bilateral; Z90.79 Acquired absence of other genital organ(s); Z90.710 Acquired absence of both cervix and uterus; Z98.890 Other specified postprocedural states; Z82.49 Family history of ischemic heart disease and other diseases of the circulatory system; Z84.1 Family history of disorders of kidney and ureter; Z79.899 Other long term (current) drug therapy

== ENCOUNTER 2017-04-10 14:44 | Emergency (ER) | payer OTHER ==
[~2017-04-10] VITALS: Ht 157.5 cm; Wt 93.7 kg
[~2017-04-10 14:44] MED LIST changes: +DOXY100C2 PO; -IMTIN5; +LAMO25TA PO; -LMC25 PO; -ONDA4TAB9 PO; +PEDICHW50 PO; +QUET1TAB32 PO; -SRQ25 PO; -TRL150 PO; -VNTHFA/IN INH
[2017-04-10 15:12] VITALS: Ht 157.5 cm; Wt 93.7 kg
[2017-04-10] MEDS ORDERED: FLUT0.15 NAE (16:00)
[2017-04-10] MEDS ORDERED: ONDANSETRON INJ 2 MG/ML 2 ML VIAL IV STA (17:34)
[2017-04-10] MEDS ORDERED: SODIUM CHLORIDE 0.9% 1000ML 1,000 ML IV STA (17:34)
[2017-04-10 18:01] LABS: POINT OF CARE TROPONIN I < 0.030 ng/ml (0-0.045)
[2017-04-10 18:04] LABS: BASO % 0.4 %; BASO ABS # 0.03 K/uL (0-0.2); COMPLETE YES; EOS % 3.7 %; IG% 0.1 %; LYMPH % 25.9 %; LYMPH ABS # 2.11 K/uL (1.2-3.4); MEAN CELL VOLUME 86.2 fL (80-100); MEAN CORPUSCULAR HEMOGLOBIN 29.9 pg (25-34); MEAN CORPUSCULAR HGB CONC 34.7 g/dl (32-36); MEAN PLATELET VOLUME 10.8 fL (7.4-10.4); MONO % 6.9 %; PLATELET COUNT 250 K/uL (130-400); RED BLOOD COUNT 5.22 M/uL (4.2-5.4); WHITE BLOOD COUNT 8.14 K/uL (4.8-10.8)
[2017-04-10] MEDS ORDERED: ATV1 PO (18:06)
[2017-04-10] MEDS ORDERED: LMC25 PO (18:06)
[2017-04-10] MEDS ORDERED: QUET5TAB PO (18:06)
[2017-04-10] MEDS ORDERED: OPTIRAY 320 IV PRN (18:15)
[2017-04-10 18:26] LABS: PREG INTERNAL NEGATIVE QC NEG CLEAR BACKGROUND; PREG INTERNAL POSITIVE QC POS CONTROL LINE
--- NOTE | 2017-04-10 18:38 | DIAGNOSTIC IMAGING REPORT ---
CHEST ONE VIEW PORTABLE CLINICAL HISTORY: Atypical chest pain COMPARISON STUDY: 02/28/2017 FINDINGS: The cardiac and mediastinal contours are normal. There is no evidence of focal pulmonary consolidation. There is no evidence of failure. No pleural effusions are visualized.[ IMPRESSION: No active disease in the chest. Electronically signed by: Tyshawn Patel M.D. 04/10/2017 6:36 PM Dictated Date/Time: 04/10/2017 6:36 PM
[2017-04-10 19:05] LABS: ALKALINE PHOSPHATASE 120 U/L (45-117); ALT/SGPT 18 U/L (12-78); AST/SGOT 13 U/L (15-37); BLOOD UREA NITROGEN 8 mg/dl (7-18); BUN/CREATININE RATIO 10.5 (10-20); CALCIUM 8.9 mg/dl (8.5-10.1); CARBON DIOXIDE 28 mmol/L (21-32); CHLORIDE 104 mmol/L (98-107); CREATININE 0.75 mg/dl (0.60-1.20); GLUCOSE 67 mg/dl (70-99); POTASSIUM 4.3 mmol/L (3.5-5.1); SODIUM 140 mmol/L (136-145)
[2017-04-10 20:04] LABS: PARTIAL THROMBOPLASTIN RATIO 1.1; PROTHROMBIN TIME (PATIENT) 10.7 SECONDS (9.0-12.0)
--- NOTE | 2017-04-10 20:36 | DIAGNOSTIC IMAGING REPORT ---
CT ANGIOGRAM OF THE CHEST CLINICAL HISTORY: Chest tightness.. NAUSEA, DIZZINESS, PALPITATIONS. ESTROGEN USE. COMPARISON STUDY: 04/14/2015 TECHNIQUE: Following the IV administration of 103 mL of [id number]-320, CT angiogram of the thorax was performed from the thoracic inlet to the lung bases utilizing the pulmonary embolus protocol. Images are reviewed in the axial, sagittal, and coronal planes. IV contrast was administered without complication. MIP imaging was performed. CT DOSE: FINDINGS: No pathologically enlarged axillary mediastinal or hilar lymph nodes were visualized. There was no evidence of thoracic aortic dilatation. There were no pulmonary artery filling defects to indicate acute pulmonary embolism. No pleural effusions are visualized. There are minor dependent atelectatic changes. There is no focal pulmonary consolidation. IMPRESSION: No acute intrathoracic findings. No evidence of acute pulmonary embolism. Electronically signed by: Tyshawn Patel M.D. 04/10/2017 8:34 PM Dictated Date/Time: 04/10/2017 8:30 PM
[2017-04-10 21:26] VITALS: BP 122/76; PULSE 67; TEMP 37; O2SAT 97
[2017-04-10] MEDS ORDERED: DIPH1TAB PO (21:31)
[2017-04-10] MEDS ORDERED: PRZ1 PO (22:16)
[2017-04-10] MEDS ORDERED: PRM625 PO (22:16)
--- NOTE | 2017-04-11 00:24 | EMERGENCY ROOM VISIT NOTE ---
ED Visit Note First contact with patient: 17:04 Chief Complaint: Chest pain. History of Present Illness: Ms. Reilly is a 32 year-old white female who is referred to the ED from the [facility] complaining of chest pain. Historically patient reports she has a history of asthma and anxiety. Patient reports a acute onset of chest "pressure"; "feels like someone is squeezing my chest from the the outside of the ribs inward", that started approximately 3 hours ago. Since that time the pain has been has been constant. Associated with this pain she reports intermittently she has a sharp discomfort that is transient in the middle of her chest. The pain is nonradiating. She has not identified any aggravating or alleviating factors related to the pain. She thought this could be her anxiety and took an Ativan after its onset without relief of her discomfort. Associated with her discomfort she reports she is feeling very tired and fatigued, she feels like any movements of her arms and leg drains her energy and she is lightheaded like she is standing on a boat and is getting early seasickness. Additionally she does report she takes oral estrogen for control but also smokes and intermittently since this started she has sensations of heart racing. Patient denies fevers, chills, sweats, skin eruptions, skin color changes, upper respiratory tract symptoms, wheezing, cough, shortness of breath, orthopnea, dependent edema, previous clots, claudication, cramping, recent surgery/inactivity/extended travel, abdominal pain, nausea, vomiting, diarrhea, constipation, rectal bleeding, black/tarry stools, urinary symptoms, back/flank pain. Review of Systems: As noted above in history of present illness. All body systems were reviewed and found to be negative as noted above. Past Medical History: As previously noted, bronchitis, pneumonia, bipolar disorder, depression, personality disorder, posttraumatic stress disorder, marijuana abuse, chronic pelvic pain, ovarian cyst removal, endometriosis, kidney stones, migraine headaches, status post cholecystectomy, tubal ligation, laparoscopic hysterectomy and bilateral salpingo-oophorectomy. Current Medications: Medications Dose Route/Sig Max Daily Dose Days Date Category Dose Instructions Lamotrigine 25 Mg Tab 50 Mg PO BID 04/10/17 Reported Seroquel (Quetiapine Fumarate) 50 Mg Tab 50 Mg PO HS 04/10/17 Reported Lorazepam 1 Mg Tab 1 Mg PO HS PRN 04/10/17 Reported Benadryl Allergy (Diphenhydramine Hcl) 25 Mg Tab 50 Mg PO UD PRN 01/27/17 Reported TAKE PER PACKAGE DIRECTIONS Premarin (Estrogens Conjugated) 0.625 Mg Tab 0.625 Mg PO QAM 07/28/16 Reported Prazosin HCl 1 Mg Cap 1 Mg PO HS 07/28/16 Reported Flintstones Chewable (Pediatric Multiple Vitamin W/) 1 Chw Chw 1 Tab PO QAM 02/04/16 Reported Flonase Allergy Relief (Fluticasone Propionate (Nasal)) 50 Mcg/Act Spr 2 Sprays YOLIE DAILY PRN 01/07/16 Reported Allergies to Medications: Topamax, Reglan, prednisone, Inderal. Social History: Patient is not employed; she feels safe in her home environment ; she admits to tobacco use and denies alcohol use. Physical Examination: Vital Signs: Date Time Temp Pulse Resp B/P (MAP) Pulse Ox O2 Delivery O2 Flow Rate FiO2 04/10/17 21:26 37.0 67 16 122/76 97 04/10/17 21:19 60 16 129/71 98 Room Air 04/10/17 19:14 79 18 04/10/17 18:44 71 20 04/10/17 18:14 76 22 04/10/17 17:52 76 04/10/17 17:49 90 18 111/76 100 04/10/17 17:48 111/76 04/10/17 17:45 80 20 106/62 84 112/78 109 111/76 04/10/17 15:12 97 Room Air 04/10/17 15:12 37.0 101 16 119/92 96 Room Air GENERAL: 32-year-old female in mild to moderate distress due to pain, nontoxic- appearing, afebrile and hemodynamically stable. NEUROLOGICAL: Awake, alert and oriented to person, place and time. Answering questions appropriately and following commands. Normal gait. Good hand eye coordination. SKIN: Warm, dry and pink. No soft tissue eruptions or trauma noted. HEENT: Atraumatic and normocephalic. PERRLA. Sclera white and conjunctiva pink. Oral cavity moist and pink. Pharynx is nonerythematous or edematous. Speech normal. No lymphadenopathy. Trachea midline. No jugular venous distention. BACK: No tenderness over the bony spine. No CVA tenderness. THORAX: Lungs sounds are clear to auscultation and equal bilaterally with symmetrical chest wall. No wheezing, rales or rhonchi. No crepitus, tenderness , subcutaneous air or deformities noted. HEART: Regular rate and rhythm. No gallops, rubs or murmurs are appreciated. No lifts, heaves or thrills. PMI is not displaced. ABDOMEN: Flat, soft and nontender. Positive bowel sounds in all quadrants. No guarding, rigidity or organomegaly. EXTREMITIES: Moves all extremities well on command and with purpose. All distal neurovascular statuses are intact and equal bilaterally. No dependent edema or calf tenderness/cords. ED Course: Patient is assessed as noted above. Patient's medication list was reviewed. Laboratory Testing: Test 04/10/17 17:30 04/10/17 17:42 04/10/17 19:40 Range/Units White Blood Count 8.14 4.8-10.8 K/uL Red Blood Count 5.22 4.2-5.4 M/uL Hemoglobin 15.6 12.0-16.0 g/dL Hematocrit 45.0 37-47 % Mean Corpuscular Volume 86.2 80-100 fL Mean Corpuscular Hemoglobin 29.9 25-34 pg Mean Corpuscular Hemoglobin Concent 34.7 32-36 g/dl Platelet Count 250 130-400 K/uL Mean Platelet Volume 10.8 7.4-10.4 fL Neutrophils (%) (Auto) 63.0 % Lymphocytes (%) (Auto) 25.9 % Monocytes (%) (Auto) 6.9 % Eosinophils (%) (Auto) 3.7 % Basophils (%) (Auto) 0.4 % Neutrophils # (Auto) 5.13 1.4-6.5 K/uL Lymphocytes # (Auto) 2.11 1.2-3.4 K/uL Monocytes # (Auto) 0.56 0.11-0.59 K/uL Eosinophils # (Auto) 0.30 0-0.5 K/uL Basophils # (Auto) 0.03 0-0.2 K/uL RDW Standard Deviation 40.6 36.4-46.3 fL RDW Coefficient of Variation 12.8 11.5-14.5 % Immature Granulocyte % (Auto) 0.1 % Immature Granulocyte # (Auto) 0.01 0.00-0.02 K/uL Sodium Level 140 136-145 mmol/L Potassium Level 4.3 3.5-5.1 mmol/L Chloride Level 104 98-107 mmol/L Carbon Dioxide Level 28 21-32 mmol/L Anion Gap 8.0 3-11 mmol/L Blood Urea Nitrogen 8 7-18 mg/dl Creatinine 0.75 0.60-1.20 mg/dl Est Creatinine Clear Calc Drug Dose 113.8 ml/min Estimated GFR () 121.4 Estimated GFR (Non- 104.7 BUN/Creatinine Ratio 10.5 10-20 Random Glucose 67 70-99 mg/dl Calcium Level 8.9 8.5-10.1 mg/dl Total Bilirubin 0.2 0.2-1 mg/dl Direct Bilirubin 0-0.2 mg/dl Aspartate Amino Transf (AST/SGOT) 13 15-37 U/L Alanine Aminotransferase (ALT/SGPT) 18 12-78 U/L Alkaline Phosphatase 120 45-117 U/L Total Creatine Kinase 59 26-192 U/L Total Protein 7.4 6.4-8.2 gm/dl Albumin 3.9 3.4-5.0 gm/dl Lipase 101 73-393 U/L Human Chorionic Gonadotropin, Qual NEG NEG Chemistry Specimen Hemolysis Bedside D-Dimer > 450 0-450 ng/mlFEU Bedside Troponin I < 0.030 0-0.045 ng/ml Prothrombin Time 10.7 9.0-12.0 SECONDS Prothromb Time International Ratio 1.0 0.9-1.1 Activated Partial Thromboplast Time 28.6 21.0-31.0 SECONDS Partial Thromboplastin Ratio 1.1 Chest X-Rays: Were read by myself and the radiologist showing no acute infiltrates, effusions or pneumothorax. Normal heart silhouette and bony anatomy. Chest CTA: Were reviewed by myself and read by the radiologist showing no evidence of thoracic aortic dilatation, no pulmonary artery filling defects to indicate acute pulmonary embolism and no pathological enlargement of lymph nodes. EKG: Was read by myself and reviewed with Dr. Villafana; shows normal sinus rhythm with a ventricular rate of 86 bpm. Normal complex, intervals and complexes. No acute ST changes indicating ischemia, injury or infarction. This was compared to her previous that was done earlier at the [facility] and showed no acute changes and it was also compared to an 01/27/2017 EKG and no acute changes were noted. Patient was hydrated with normal saline and she received 4 mg of Zofran IV for nausea. Patient was reassessed multiple times during her stay in the emergency department. Patient's case was reviewed with Dr. Villafana; we agreed on diagnostic approach, treatment, disposition and plan. Patient was educated about today's findings and instructed on her treatment plan ; she verbalized understanding and agreement with this plan. Clinical Impression: Acute chest pain. Decision-Making: Initially my differential diagnosis I considered acute coronary syndrome, thoracic aneurysm, pneumothorax, pneumonia, pulmonary embolism, musculoskeletal disorder and other causes. Disposition: Patient discharged home in stable condition accompanied by male friend; prior to departure she was reassessed and subjectively reported that she was pain-free. Plan: Patient was encouraged to alternate ibuprofen and acetaminophen as needed for pain. Patient was encouraged to avoid tobacco use. Patient was encouraged to follow-up with family physician for recheck in 2-3 days if no better. Patient was encouraged return to the ED for worsening symptoms including pain, fevers, coughing up blood, shortness of breath/wheezing or any new/concerning symptoms.
[2017-04-11] MEDS ORDERED: OMEP20CA59 PO (09:44)
== END 2017-04-10 21:27 | disposition home or self-care (01) ==
LOC: C.EDB 14:46
DX: R07.9 Chest pain, unspecified (principal); R11.0 Nausea; F41.9 Anxiety disorder, unspecified; J45.909 Unspecified asthma, uncomplicated; F31.9 Bipolar disorder, unspecified; F17.200 Nicotine dependence, unspecified, uncomplicated; Z87.442 Personal history of urinary calculi; Z90.710 Acquired absence of both cervix and uterus; Z90.722 Acquired absence of ovaries, bilateral; Z98.51 Tubal ligation status; Z90.49 Acquired absence of other specified parts of digestive tract; Z79.899 Other long term (current) drug therapy; Z88.8 Allergy status to other drugs, medicaments and biological substances

== ENCOUNTER 2017-04-11 07:09 | Emergency (ER) | payer OTHER ==
[~2017-04-11] VITALS: Ht 157.5 cm; Wt 92.5 kg
[~2017-04-11 07:09] MED LIST changes: +ATV1 PO; +DIPH1TAB PO; +FLUT0.15 NAE; +LMC25 PO; +PRM625 PO; +PRZ1 PO; +QUET5TAB PO
[2017-04-11 07:15] VITALS: TEMP 36.3; Ht 157.5 cm; Wt 92.5 kg
[2017-04-11] MEDS ORDERED: ONDANSETRON INJ 2 MG/ML 2 ML VIAL IV STA (07:23)
[2017-04-11] MEDS ORDERED: SODIUM CHLORIDE 0.9% 1000ML 1,000 ML IV STA (07:23)
--- NOTE | 2017-04-11 07:30 | EMERGENCY ROOM VISIT NOTE ---
History First contact with patient: 07:18 Chief Complaint: ABDOMINAL PAIN Stated Complaint: VOMITING,STOMACH PAIN,BLOOD IN STOOL Nursing Triage Summary: pt reports severe abdominal , epigastric , + NVD reports diarrhea is bloody just started this AM History of Present Illness The patient is a 32 year old female who presents to the Emergency Room with complaints of abdominal pain and vomiting. The patient states that she was seen here last night for chest pain. She states the chest pain has resolved. She states that approximately one half hour after she left the emergency department yesterday she developed epigastric and left upper quadrant abdominal pain, nausea and vomiting. She denies diarrhea but states she has had some blood in the stool. She states she feels sweaty. She rates her discomfort an 8 /10. She denies pain in her chest or trouble breathing. She denies fevers. She denies urinary symptoms. Review of Systems A 10 system review of systems was completed with positives and pertinent negatives listed in the HPI. Past Medical/Surgical History Medical Problems: (1) Acute anxiety (2) Asthma, Unspecified (3) Bipolar II disorder (4) Bronchitis (5) Cannabis abuse (6) Carbon monoxide poisoning (7) Chest pain (8) Cholecystectomy (9) Chronic pelvic pain in female (10) Cluster B personality disorder (11) Deliberate self-cutting (12) Depress Disorder-Unspec (13) Diverticulosis Colon (W/O Ment Of Hemorrhage) (14) Endometriosis (15) Endoscopic retrograde cholangiopancreatography (16) Kidney stone (17) Migraine (18) Migraine Unspecified W/O Intractable Migraine (19) Nausea (20) Nausea, vomiting, and diarrhea (21) Nicotine abuse (22) Obesity (BMI 30-39.9) (23) Pneumonia (24) PTSD (post-traumatic stress disorder) (25) Removal of ovarian cyst (26) Renal colic on left side (27) SOB (shortness of breath) (28) Syncope (29) Tubal Ligation Status (30) Ureteral stent placement Surgical Problems: (1) S/P BSO (bilateral salpingo-oophorectomy) (2) S/P laparoscopic hysterectomy Family History Cancer Hypertension Kidney stone Lung disease Social History Smoking Status: Current Every Day Smoker Alcohol Use: none Drug Use: marijuana Marital Status: Housing Status: lives with family Occupation Status: unemployed Current/Historical Medications Scheduled Estrogens, Conjugated (Premarin), 0.625 MG PO QAM Lamotrigine (Lamotrigine), 50 MG PO BID Omeprazole (Prilosec), 20 MG PO DAILY Pediatric Multiple Vitamin W/ (Flintstones Chewable), 1 TAB PO QAM Prazosin HCl (Prazosin HCl), 1 MG PO HS Quetiapine Fumarate (Seroquel), 50 MG PO HS Scheduled PRN Diphenhydramine Hcl (Benadryl Allergy), 50 MG PO UD PRN for Allergy Symptoms Fluticasone Propionate (Nasal) (Flonase Allergy Relief), 2 SPRAYS YOLIE DAILY PRN for Allergy Symptoms Lorazepam (Lorazepam), 1 MG PO HS PRN for Sleep Allergies Coded Allergies: Chlorine (Verified Allergy, Unknown, BLEACH-ITCHY, 04/11/17) Topiramate (Verified Allergy, Unknown, low bp-fainting, 04/11/17) Prednisone (Verified Adverse Reaction, Intermediate, PSYCOTIC, 04/11/17) Propranolol (Verified Adverse Reaction, Intermediate, dizziness-LOW BP FAINTING, 04/11/17) Metoclopramide (Verified Adverse Reaction, Mild, makes me feel "like i am on speed", 04/11/17) pt Physical Exam Vital Signs Date Time Temp Pulse Resp B/P (MAP) Pulse Ox O2 Delivery O2 Flow Rate FiO2 04/11/17 10:26 58 16 149/81 97 04/11/17 09:35 50 16 132/71 98 04/11/17 07:15 36.3 44 18 140/89 99 Room Air Physical Exam VITALS: Vitals are noted on the nurse's note and reviewed by myself. Vital signs stable. The patient is afebrile. GENERAL: This is a 32-year-old female, in no acute distress, nondiaphoretic, well-developed well-nourished. SKIN: The skin was without rashes, erythema, edema, or bruising. There is no tenting of the skin. Capillary reflex less than 2 seconds. HEAD: Normocephalic atraumatic. EARS: External ears normal in appearance. EYES: Pupils equal round and reactive to light and accommodation. Conjunctivae without injection, sclerae without icterus. Extraocular movements intact. NOSE: Patent, turbinates without inflammation or discharge. MOUTH: Mucous membranes moist. Tonsils are not enlarged. Pharynx without erythema or exudate. Uvula midline. Airway patent. Tongue does not deviate. NECK: Supple without nuchal rigidity. No lymphadenopathy. No thyromegaly. Cervical spine is nontender. No JVD. HEART: Regular rate and rhythm without murmurs gallops or rubs. LUNGS: Clear to auscultation bilaterally without wheezes, rales or rhonchi. No retractions or accessory muscle use. ABDOMEN: Positive bowel sounds x 4. Soft, moderate epigastric and left upper quadrant tenderness without masses or organomegaly. Patel sign negative. MUSCULOSKELETAL: No muscle atrophy, erythema, or edema noted. Full range of motion in all extremities. Strength 5/5 throughout. NEURO: Patient was alert and oriented to person place and time. No focal neurological deficits. Medical Decision & Procedures ER Provider Diagnostic Interpretation: CHEST ONE VIEW PORTABLE HISTORY:32 yearsFemaleupper abdominal pain COMPARISON: Chest CT and chest radiograph 04/10/2017 TECHNIQUE: Portable upright AP view of the chest. FINDINGS: Cardiac silhouette is within normal limits. There is no pneumothorax, pleural effusion or focal airspace consolidation. There is no overt pulmonary edema. Bones are grossly intact. IMPRESSION: No acute cardiopulmonary process. Laboratory Results 04/11/17 08:00 Red Blood Count 5.15, Mean Corpuscular Volume 84.7, Mean Corpuscular Hemoglobin 29.1, Mean Corpuscular Hemoglobin Concent 34.4, Mean Platelet Volume 10.1, Neutrophils (%) (Auto) 82.1, Lymphocytes (%) (Auto) 13.2, Monocytes (%) (Auto) 3.7, Eosinophils (%) (Auto) 0.4, Basophils (%) (Auto) 0.4, Neutrophils # (Auto) 9.82, Lymphocytes # (Auto) 1.58, Monocytes # (Auto) 0.44, Eosinophils # (Auto) 0.05, Basophils # (Auto) 0.05 04/11/17 08:00 Test 04/11/17 08:00 White Blood Count 11.96 K/uL (4.8-10.8) Red Blood Count 5.15 M/uL (4.2-5.4) Hemoglobin 15.0 g/dL (12.0-16.0) Hematocrit 43.6 % (37-47) Mean Corpuscular Volume 84.7 fL (80-100) Mean Corpuscular Hemoglobin 29.1 pg (25-34) Mean Corpuscular Hemoglobin Concent 34.4 g/dl (32-36) Platelet Count 280 K/uL (130-400) Mean Platelet Volume 10.1 fL (7.4-10.4) Neutrophils (%) (Auto) 82.1 % Lymphocytes (%) (Auto) 13.2 % Monocytes (%) (Auto) 3.7 % Eosinophils (%) (Auto) 0.4 % Basophils (%) (Auto) 0.4 % Neutrophils # (Auto) 9.82 K/uL (1.4-6.5) Lymphocytes # (Auto) 1.58 K/uL (1.2-3.4) Monocytes # (Auto) 0.44 K/uL (0.11-0.59) Eosinophils # (Auto) 0.05 K/uL (0-0.5) Basophils # (Auto) 0.05 K/uL (0-0.2) RDW Standard Deviation 39.5 fL (36.4-46.3) RDW Coefficient of Variation 12.7 % (11.5-14.5) Immature Granulocyte % (Auto) 0.2 % Immature Granulocyte # (Auto) 0.02 K/uL (0.00-0.02) Anion Gap 9.0 mmol/L (3-11) Est Creatinine Clear Calc Drug Dose 77.0 ml/min Estimated GFR () 76.4 Estimated GFR (Non- 65.9 BUN/Creatinine Ratio 7.5 (10-20) Calcium Level 9.3 mg/dl (8.5-10.1) Total Bilirubin 0.3 mg/dl (0.2-1) Aspartate Amino Transf (AST/SGOT) 16 U/L (15-37) Alanine Aminotransferase (ALT/SGPT) 16 U/L (12-78) Alkaline Phosphatase 115 U/L (45-117) Troponin I < 0.015 ng/ml (0-0.045) Total Protein 7.7 gm/dl (6.4-8.2) Albumin 3.7 gm/dl (3.4-5.0) Globulin 4.0 gm/dl (2.5-4.0) Albumin/Globulin Ratio 0.9 (0.9-2) Lipase 89 U/L (73-393) Medications Administered Medications (Trade) Dose Ordered Sig/Carlie Route Start Time Stop Time Status Last Admin Dose Admin Sodium Chloride 1,000 ml @ 999 mls/hr Q1H1M STAT IV 04/11/17 07:23 04/11/17 08:23 DC 04/11/17 08:12 999 MLS/HR Ondansetron HCl (Zofran Inj) 4 mg NOW STAT IV 04/11/17 07:23 04/11/17 07:25 DC 04/11/17 08:12 4 MG Dicyclomine HCl (Bentyl Inj) 20 mg NOW ONCE IM 04/11/17 08:45 04/11/17 08:46 DC 04/11/17 09:02 20 MG Al Hydroxide/Mg Hydroxide (Maalox Susp) 30 ml STK-MED ONCE .ROUTE 04/11/17 08:48 04/11/17 08:49 DC 04/11/17 09:01 30 ML Lidocaine HCl (Viscous Lidocaine 2% Soln) 20 ml STK-MED ONCE .ROUTE 04/11/17 08:48 04/11/17 08:49 DC 04/11/17 09:01 20 ML Promethazine HCl 25 mg/Sodium Chloride 51 ml @ 204 mls/hr NOW STAT IV 04/11/17 09:42 04/11/17 09:56 DC 04/11/17 09:56 204 MLS/HR ED Course The patient was seen and examined. Previous visits were reviewed. The patient does not have a fever. She has a mild leukocytosis of 11.96. She does not have any significant election light abnormality. She is not anemic. Troponin was not elevated. Lipase was not elevated. Chest x-ray does not reveal any free air or obvious abnormality The patient was hydrated with normal saline She was given 4 mg IV Zofran and 20 mg IM Bentyl. She had some improvement in the nausea. She states the pain was slightly improved. She was given a GI cocktail and stated that this helped her pain but the nausea persisted She was then given 25 mg Phenergan The patient presents to the emergency department with epigastric and left upper quadrant pain. She has had vomiting without hematemesis. The patient did have some bright red blood per rectum. She does have an external hemorrhoid. She has not had diarrhea. She is not anemic. This could potentially represent a gastritis or potentially an ulcer. The patient does not have pancreatitis. She does not have a gallbladder. She does not have any lower abdominal tenderness on examination. She will be started on a PPI. She should follow-up with her family doctor for possible referral to gastroenterology if symptoms persist. She should return to the ER with any worsening symptoms. The case was discussed with Dr. trunog who agrees with the assessment and treatment plan Medical Decision DIFFERENTIAL DIAGNOSIS: Hepatitis, cholecystitis, cholangitis, biliary colic, pancreatitis, pneumonia, subdiaphragmatic abscess, appendicitis, inguinal hernia , nephrolithiasis, inflammatory bowel disease, mesenteric adenitis, peptic ulcer disease, GERD, gastritis, pancreatitis, myocardial infarction, pericarditis, ruptured aortic aneurysm, appendicitis, gastroenteritis, bowel obstruction, splenic infarct, diverticulitis, mesenteric ischemia, metabolic, peritonitis, among others. Impression Primary Impression: Gastritis Additional Impressions: Upper abdominal pain Rectal bleeding Departure Information Dispostion Home / Self-Care Condition GOOD Prescriptions Omeprazole (Prilosec) 20 Mg Capcr 20 MG PO DAILY for 14 Days, #14 CAP Prov: Rita Ray PA-C 04/11/17 Referrals Tanesha Odonnell D.O. (PCP) Patient Instructions ED Epigastric Pain [facility] [place] [employer] Additional Instructions Prilosec as prescribed to help with gastritis and reflux Continue your usual medications Contact your family doctor today for a follow-up appointment. You may need to see gastroenterology for further evaluation and management Return if any worsening symptoms Problem Qualifiers
--- NOTE | 2017-04-11 07:51 | DIAGNOSTIC IMAGING REPORT ---
CHEST ONE VIEW PORTABLE HISTORY:32 yearsFemaleupper abdominal pain COMPARISON: Chest CT and chest radiograph 04/10/2017 TECHNIQUE: Portable upright AP view of the chest. FINDINGS: Cardiac silhouette is within normal limits. There is no pneumothorax, pleural effusion or focal airspace consolidation. There is no overt pulmonary edema. Bones are grossly intact. IMPRESSION: No acute cardiopulmonary process. The above report was generated using voice recognition software. It may contain grammatical, syntax or spelling errors. Electronically signed by: Jace Beebe 04/11/2017 7:50 AM Dictated Date/Time: 04/11/2017 7:49 AM
[2017-04-11 08:07] LABS: BASO % 0.4 %; BASO ABS # 0.05 K/uL (0-0.2); COMPLETE YES; EOS % 0.4 %; HEMATOCRIT 43.6 % (37-47); IG% 0.2 %; LYMPH % 13.2 %; LYMPH ABS # 1.58 K/uL (1.2-3.4); MEAN CELL VOLUME 84.7 fL (80-100); MEAN CORPUSCULAR HEMOGLOBIN 29.1 pg (25-34); MEAN CORPUSCULAR HGB CONC 34.4 g/dl (32-36); MEAN PLATELET VOLUME 10.1 fL (7.4-10.4); MONO % 3.7 %; NEUT % 82.1 %; PLATELET COUNT 280 K/uL (130-400); RED BLOOD COUNT 5.15 M/uL (4.2-5.4); WHITE BLOOD COUNT 11.96 K/uL (4.8-10.8)
[2017-04-11 08:24] LABS: ALT/SGPT 16 U/L (12-78); AST/SGOT 16 U/L (15-37); BLOOD UREA NITROGEN 8 mg/dl (7-18); BUN/CREATININE RATIO 7.5 (10-20); CALCIUM 9.3 mg/dl (8.5-10.1); CARBON DIOXIDE 25 mmol/L (21-32); CHLORIDE 106 mmol/L (98-107); GLUCOSE 117 mg/dl (70-99); POTASSIUM 4.3 mmol/L (3.5-5.1); SODIUM 140 mmol/L (136-145)
[2017-04-11 08:29] LABS: ALB/GLOB RATIO 0.9 (0.9-2); ALKALINE PHOSPHATASE 115 U/L (45-117)
[2017-04-11] MEDS ORDERED: GI COCKTAIL PO STA (08:38)
[2017-04-11] MEDS ORDERED: DICYCLOMINE HCL 10 MG/ML 2 ML AMP IM ONE (08:45)
[2017-04-11] MEDS ORDERED: LIDOCAINE HCL 2% VISC SOLN 20 ML UDC ONE (08:48)
[2017-04-11] MEDS ORDERED: ALUMINUM/MAGNESIUM SUSP 30 ML UDC ONE (08:48)
[2017-04-11] MEDS ORDERED: PROMETHAZINE HCL INJ 25 MG in SODIUM CHLORIDE 0.9% 50ML 50 ML IV STA (09:42)
[2017-04-11] MEDS ORDERED: OMEP20CA59 PO (09:44)
[2017-04-11 10:26] VITALS: BP 149/81; PULSE 58; O2SAT 97
== END 2017-04-11 10:26 | disposition home or self-care (01) ==
LOC: C.EDB 07:09 → C.EDA 10:26
DX: K29.70 Gastritis, unspecified, without bleeding (principal); R10.10 Upper abdominal pain, unspecified; K62.5 Hemorrhage of anus and rectum; F41.9 Anxiety disorder, unspecified; J45.909 Unspecified asthma, uncomplicated; F31.9 Bipolar disorder, unspecified; Z87.440 Personal history of urinary (tract) infections; G43.909 Migraine, unspecified, not intractable, without status migrainosus; E66.9 Obesity, unspecified; F43.10 Post-traumatic stress disorder, unspecified; Z80.9 Family history of malignant neoplasm, unspecified; Z82.49 Family history of ischemic heart disease and other diseases of the circulatory system; Z84.1 Family history of disorders of kidney and ureter; Z83.6 Family history of other diseases of the respiratory system; F17.210 Nicotine dependence, cigarettes, uncomplicated; Z79.899 Other long term (current) drug therapy

== ENCOUNTER 2017-06-12 12:17 | Emergency (ER) | payer OTHER ==
[~2017-06-12] VITALS: Ht 157.5 cm; Wt 91.8 kg
[~2017-06-12 12:17] MED LIST changes: -DOXY100C2 PO; -LAMO25TA PO; -MTR/600 PO; -QUET1TAB32 PO
[2017-06-12 12:27] VITALS: TEMP 36.5; Ht 157.5 cm; Wt 91.8 kg
[2017-06-12] MEDS ORDERED: TRAMADOL HCL 50 MG TAB PO STA (12:50)
[2017-06-12] MEDS ORDERED: KETOROLAC TROMETHAMINE 60 MG/2 ML VIAL IM STA (12:50)
[2017-06-12] MEDS ORDERED: LAMO25TA PO (12:52)
[2017-06-12] MEDS ORDERED: QUET1TAB34 PO (12:52)
--- NOTE | 2017-06-12 13:24 | DIAGNOSTIC IMAGING REPORT ---
L-SPINE MIN 4 VIEWS ROUTINE CLINICAL HISTORY: Low back pain COMPARISON STUDY: No previous studies for comparison. FINDINGS: There are 5 lumbar type vertebral bodies. No fractures or subluxations are visualized. There is no pathologic bowel dilatation. There are surgical clips within the right upper quadrant consistent with a prior cholecystectomy. There is a punctate opacity projected over the upper pole the right kidney. This likely represents a tiny right renal calculus. IMPRESSION: 1. Probable right-sided nephrolithiasis 2. No fractures, subluxations, or destructive lesions are visualized within the lumbar spine. Electronically signed by: Tyshawn Patel M.D. 06/12/2017 1:22 PM Dictated Date/Time: 06/12/2017 1:21 PM
--- NOTE | 2017-06-12 13:29 | EMERGENCY ROOM VISIT NOTE ---
ED Visit Note First contact with patient: 12:33 CHIEF COMPLAINT: Low back pain with right radicular pain HISTORY OF PRESENT ILLNESS: This 32-year-old female presents the ER with chief complaint of low back pain mainly on the right side and radiating down the posterior aspect of her right leg when she turns a certain way. The patient denies any known injury to the back. She states the symptoms have been one on for 2 weeks. She states the pain was worse this morning which is why she came in. She she denies any numbness and tingling in her right lower extremity. The patient denies a loss of bowel or bladder control. The patient denies any other urinary symptoms. The patient denies any saddle anesthesia. The patient denies any prior surgery to her lumbar spine. She has been taking Tylenol and ibuprofen without any relief of her pain. REVIEW OF SYSTEMS: 6 system review was performed and was negative unless stated otherwise in history of present illness. PMH: The patient is healthy; migraines, bipolar disorder, asthma, kidney stones SOCIAL HISTORY: Patient lives with her family. The patient admits to tobacco use but denies any alcohol use. PHYSICAL EXAM: Vital Signs normal: Reviewed Nurse's notes and agree. GENERAL: 32-year-old female appears in no acute distress. MENTAL STATUS: Alert and oriented in no acute distress. LUMBAR SPINE: No gross bony abnormality noted. Patient is nontender to palpation over the spinous processes. She is tender to palpation over the right paravertebral region, left side nontender. She has full range of motion of the lumbar spine with pain elicited with flexion and right lateral bending. Muscle strength is 5 out of 5 bilateral lower extremities and symmetrical. NEURO: Patient is able to heel and toe walk without difficulty. I lateral patellar and Achilles reflexes are 2+. Sensation is intact to pinprick bilateral lower extremities. Negative straight leg raise bilaterally. EMERGENCY DEPARTMENT COURSE: The patient was evaluated. The patient was on a treatment plan for her migraine headaches. Since this is different from migraines I did give her Ultram 100 mg by mouth. She cannot take prednisone due to her bipolar disorder. She was also given Toradol 60 mg IM. X-ray of the lumbar spine was ordered and interpreted by the radiologist and myself. DIAGNOSTICS:L-SPINE MIN 4 VIEWS ROUTINE CLINICAL HISTORY: Low back pain COMPARISON STUDY: No previous studies for comparison. FINDINGS: There are 5 lumbar type vertebral bodies. No fractures or subluxations are visualized. There is no pathologic bowel dilatation. There are surgical clips within the right upper quadrant consistent with a prior cholecystectomy. There is a punctate opacity projected over the upper pole the right kidney. This likely represents a tiny right renal calculus. IMPRESSION: 1. Probable right-sided nephrolithiasis 2. No fractures, subluxations, or destructive lesions are visualized within the lumbar spine. Electronically signed by: Tyshawn Patel M.D. 06/12/2017 1:22 PM Dictated Date/Time: 06/12/2017 1:21 PM The patient was informed of the findings. The patient was discharged home in stable condition. DIAGNOSIS: Lumbar strain DISCHARGE INSTRUCTIONS AND TREATMENT: Ibuprofen 600 mg every 6 hours with food for pain. Take Flexeril as directed. Do not drive while taking the Flexeril. If symptoms are not improving in 3-4 days, follow-up with family doctor. Problem List Medical Problems: (1) Acute anxiety Status: Chronic (2) Asthma, Unspecified Status: Chronic (3) Bipolar II disorder Status: Chronic (4) Bronchitis Status: Resolved (5) Cannabis abuse Status: Chronic (6) Carbon monoxide poisoning Status: Resolved (7) Chest pain Status: Resolved (8) Cholecystectomy Status: Resolved (9) Deliberate self-cutting Status: Chronic (10) Depress Disorder-Unspec Status: Chronic (11) Diverticulosis Colon (W/O Ment Of Hemorrhage) Status: Chronic (12) Endometriosis Status: Chronic (13) Endoscopic retrograde cholangiopancreatography Status: Resolved (14) Kidney stone Status: Chronic (15) Migraine Status: Chronic (16) Migraine Unspecified W/O Intractable Migraine Status: Chronic (17) Nausea Status: Resolved (18) Nausea, vomiting, and diarrhea Status: Resolved (19) Pneumonia Status: Resolved (20) Removal of ovarian cyst Status: Resolved (21) Renal colic on left side Status: Resolved (22) SOB (shortness of breath) Status: Resolved (23) Syncope Status: Resolved (24) Tubal Ligation Status Status: Resolved (25) Ureteral stent placement Status: Resolved Current/Historical Medications Scheduled Estrogens, Conjugated (Premarin), 0.625 MG PO QAM Lamotrigine (Lamictal), 75 MG PO BID Pediatric Multiple Vitamin W/ (Flintstones Chewable), 1 TAB PO QAM Prazosin HCl (Prazosin HCl), 1 MG PO HS Quetiapine Fumarate (Seroquel), 100 MG PO HS Scheduled PRN Diphenhydramine Hcl (Benadryl Allergy), 50 MG PO UD PRN for Allergy Symptoms Lorazepam (Lorazepam), 1 MG PO HS PRN for Sleep Allergies Coded Allergies: Chlorine (Verified Allergy, Unknown, BLEACH-ITCHY, 06/12/17) Topiramate (Verified Allergy, Unknown, low bp-fainting, 06/12/17) Prednisone (Verified Adverse Reaction, Intermediate, PSYCOTIC, 06/12/17) Propranolol (Verified Adverse Reaction, Intermediate, dizziness-LOW BP FAINTING, 06/12/17) Metoclopramide (Verified Adverse Reaction, Mild, makes me feel "like i am on speed", 06/12/17) pt Vital Signs Date Time Temp Pulse Resp B/P (MAP) Pulse Ox O2 Delivery O2 Flow Rate FiO2 06/12/17 12:27 36.5 92 20 142/82 100 Room Air Medications Administered Medications (Trade) Dose Ordered Sig/Carlie Route Start Time Stop Time Status Last Admin Dose Admin Ketorolac Tromethamine (Toradol Inj) 60 mg NOW STAT IM 06/12/17 12:50 06/12/17 12:53 DC 06/12/17 12:57 60 MG Tramadol HCl (Ultram Tab) 100 mg NOW STAT PO 06/12/17 12:50 06/12/17 12:53 DC 06/12/17 12:58 100 MG Departure Information Referrals Tanesha Odonnell D.O. (PCP) Patient Instructions [facility]
[2017-06-12] MEDS ORDERED: CYCL10TA6 PO (13:30)
[2017-06-12 13:37] VITALS: BP 124/95; PULSE 71; O2SAT 97
== END 2017-06-12 13:38 | disposition home or self-care (01) ==
LOC: C.EDB 12:19 → C.EDD 13:38
DX: S39.012A Strain of muscle, fascia and tendon of lower back, initial encounter (principal); X58.XXXA Exposure to other specified factors, initial encounter; G43.909 Migraine, unspecified, not intractable, without status migrainosus; F31.9 Bipolar disorder, unspecified; J45.909 Unspecified asthma, uncomplicated; Z87.442 Personal history of urinary calculi; F41.9 Anxiety disorder, unspecified; Z72.0 Tobacco use

== ENCOUNTER 2017-09-11 17:06 | Emergency (ER) | payer OTHER ==
[~2017-09-11] VITALS: Ht 157.5 cm; Wt 90.1 kg
[~2017-09-11 17:06] MED LIST changes: -DIPH1TAB PO; -FLUT0.15 NAE; +LAMO25TA PO; -LMC25 PO; -PRZ1 PO; +QUET1TAB34 PO; -QUET5TAB PO
[2017-09-11 17:11] VITALS: TEMP 36.2; Ht 157.5 cm; Wt 90.1 kg
[2017-09-11] MEDS ORDERED: KETOROLAC TROMETHAMINE 60 MG/2 ML VIAL IM STA (17:34)
--- NOTE | 2017-09-11 17:51 | EMERGENCY ROOM VISIT NOTE ---
History First contact with patient: 17:13 Chief Complaint: BACK PAIN Stated Complaint: PAIN IN SPINE ON LEFT SIDE History of Present Illness The patient is a 32 year old female who presents to the Emergency Room with complaints of low back pain. The patient states that she has had a pain in the right lower back for the past 1-1.5 weeks. She states that the pain worsened today. She describes the pain as a throbbing sensation and rates the discomfort a 7/10. She does report she has some occasional tingling in her right leg, but denies any radiation of the pain, numbness or weakness. The pain does not radiate into the abdomen. She denies nausea or vomiting. She does report that when she sits down to have a bowel movement, her back pain increases, denies any constipation or incontinence of bowel. She denies any urinary symptoms, retention or urinary incontinence. She does she has had some issues with back pain in the past and has been told it was muscular. She denies any history of back surgeries. She denies any recent trauma to the back. Review of Systems A complete 10 point review of systems was reviewed with the patient with pertinent positives and negatives as per history of present illness. All else were negative. Past Medical/Surgical History Medical Problems: (1) Acute anxiety (2) Asthma, Unspecified (3) Bipolar II disorder (4) Bronchitis (5) Cannabis abuse (6) Carbon monoxide poisoning (7) Chest pain (8) Cholecystectomy (9) Chronic pelvic pain in female (10) Cluster B personality disorder (11) Deliberate self-cutting (12) Depress Disorder-Unspec (13) Diverticulosis Colon (W/O Ment Of Hemorrhage) (14) Endometriosis (15) Endoscopic retrograde cholangiopancreatography (16) Kidney stone (17) Migraine (18) Migraine Unspecified W/O Intractable Migraine (19) Nausea (20) Nausea, vomiting, and diarrhea (21) Nicotine abuse (22) Obesity (BMI 30-39.9) (23) Pneumonia (24) PTSD (post-traumatic stress disorder) (25) Removal of ovarian cyst (26) Renal colic on left side (27) SOB (shortness of breath) (28) Syncope (29) Tubal Ligation Status (30) Ureteral stent placement Surgical Problems: (1) S/P BSO (bilateral salpingo-oophorectomy) (2) S/P laparoscopic hysterectomy Family History Cancer Hypertension Kidney stone Lung disease Social History Smoking Status: Current Every Day Smoker Alcohol Use: none Drug Use: marijuana Marital Status: Housing Status: lives with family Occupation Status: unemployed Current/Historical Medications Scheduled Cyclobenzaprine Hcl (Flexeril), 10 MG PO TID Lamotrigine (Lamotrigine), 25 MG PO BID Lamotrigine (Lamotrigine), 100 MG PO BID Pediatric Multiple Vitamin W/ (Flintstones Chewable), 1 TAB PO QAM Prazosin HCl (Prazosin HCl), 1 MG PO HS Quetiapine Fumarate (Quetiapine Fumarate), 100 MG PO HS Scheduled PRN Acetaminophen (Tylenol Arthritis Ext Rel), 1,300 MG PO UD PRN for Pain Diclofenac Sodium (Topical) (Voltaren 1% Top Gel), 1 APPLN TOP TID PRN for Pain Diphenhydramine Hcl (Benadryl Allergy), 50 MG PO UD PRN for Allergy Symptoms Ibuprofen Tab (Advil), 400-600 MG PO Q6H PRN for Pain Physical Exam Vital Signs Date Time Temp Pulse Resp B/P (MAP) Pulse Ox O2 Delivery O2 Flow Rate FiO2 09/11/17 18:42 74 15 127/84 98 09/11/17 17:11 36.2 107 20 141/95 98 Room Air Physical Exam VITALS: Vitals are noted on the nurse's note and reviewed by myself. Vital signs stable. GENERAL: This is a 32-year-old female, in no acute distress, nondiaphoretic, well-developed well-nourished. SKIN: The skin was without rashes. ABDOMEN: Soft, nontender. MUSCULOSKELETAL: There is tenderness to palpation to the right lumbar paraspinous muscles. Full range of motion of the back. Full range of motion and strength 5/5 bilaterally in lower extremities. NEURO: Patient was alert and oriented to person place and time. Normal sensation to light and sharp touch. The patellar reflexes 2+ bilaterally. Medical Decision & Procedures ER Provider Diagnostic Interpretation: L-SPINE MIN 4 VIEWS ROUTINE CLINICAL HISTORY: Right low back pain. COMPARISON: Lumbar spine radiographs June 12, 2017. FINDINGS: There is minimal rightward curvature of the lumbar spine. Vertebral body heights are maintained. There is no fracture or suspicious lesion within the lumbar spine. Disc spaces are preserved. There is mild endplate osteophytosis at several levels. Note is made of cholecystectomy clips. A few probable small right renal calculi are noted. IMPRESSION: 1. No acute lumbar spine fracture or subluxation. 2. Mild multilevel degenerative disc disease and facet arthrosis. 3. Probable right-sided nephrolithiasis. Medications Administered Medications (Trade) Dose Ordered Sig/Carlie Route Start Time Stop Time Status Last Admin Dose Admin Ketorolac Tromethamine (Toradol Inj) 60 mg NOW STAT IM 09/11/17 17:34 09/11/17 17:35 DC 09/11/17 17:56 60 MG Medical Decision Differential diagnosis includes cauda equina syndrome, cord compression, disc herniation, muscle spasm, lumbar strain, epidural abscess, malignancy, transverse myelitis, urinary tract infection, colitis, diverticulitis, kidney stone, among others. The patient is a 32-year-old female who presents today complaining of low back pain. There is nothing to suggest cauda equina syndrome, cord compression or infection. Lumbar spine x-rays were obtained and were unremarkable. The patient was treated with Toradol in the emergency department. I had a lengthy discussion with the patient regarding conservative measures. She is HIV for her back pain. She will be placed on Naprosyn and was given a prescription for Flexeril. She was encouraged to have close follow-up with her primary care provider for further evaluation and treatment of her back pain. She was instructed to return if she has numbness/weakness of the legs, bowel/bladder incontinence, or any other new/concerning symptoms. She verbalized understanding and was discharged home in good condition. Medication Reconcilliation Current Medication List: was personally reviewed by me Blood Pressure Screening Patient's blood pressure: Normal blood pressure Impression Primary Impression: Low back pain Departure Information Dispostion Home / Self-Care Condition GOOD Prescriptions Cyclobenzaprine Hcl (FLEXERIL) 10 Mg Tab 10 MG PO TID for 3 Days, #9 TAB Prov: Sanjana Singh PA-C 09/11/17 Diclofenac Sodium (Topical) (VOLTAREN 1% TOP GEL) 1 % Gel 1 APPLN TOP TID Y for Pain, #1 TUBE 1 Refill Prov: Sanjana Singh PA-C 09/11/17 Referrals Tanesha Odonnell D.O. (PCP) Patient Instructions My [facility] Additional Instructions You have been treated in the Emergency Department for Back Pain. You have been prescribed Flexeril (cyclobenzaprine) 1-2 tabs orally, three times per day. Do NOT exceed 30 mg (6 tabs) per day. Take your first dose at bedtime as it can make you drowsy. Always take all medications as prescribed. Take the Naproxen as discussed. Use the Voltaren gel to 3 times daily as needed for pain. For pain control, you can use the following [id number] medicines (if >12 yo): - Regular strength (325mg/tab) Tylenol (acetaminophen) 2 tabs every 4-6 hours as needed. Do not exceed 12 tablets in a 24 hour period. Avoid taking more than 4 grams (4000 mg) of Tylenol per day. This includes any other sources of acetaminophen you may take on a regular basis. - Regular strength (200 mg/tab) Advil (ibuprofen) 1-2 tabs every 4-6 hours as needed. Do not exceed a dose of 3200 mg per day. If this is an acute injury, ice can be applied to the area of pain for the first 3 days to help decrease pain and inflammation. After the first 3 days, a heating pad can be used over the area for continued soothing relief. You should schedule a follow-up appointment in 2-3 days with your Primary Care Provider for further evaluation and treatment of your back pain. Return to the Emergency Department if your current symptoms worsen despite treatment course outlined above, or if you develop any of the following symptoms : intractable pain despite aforementioned treatment course, loss of control of your bowel or bladder, numbness or tingling in your groin, or development of a fever. Problem Qualifiers Primary Impression: Low back pain Chronicity: acute Back pain laterality: bilateral Sciatica presence: without sciatica Qualified Codes: M54.5 - Low back pain
[2017-09-11] MEDS ORDERED: QUET-115 PO (17:57)
[2017-09-11] MEDS ORDERED: LAMO1TAB21 PO (17:57)
[2017-09-11] MEDS ORDERED: LMC25 PO (17:57)
[2017-09-11] MEDS ORDERED: IBUP-103 PO (17:59)
[2017-09-11] MEDS ORDERED: ACET1TAB84 PO (17:59)
--- NOTE | 2017-09-11 18:04 | DIAGNOSTIC IMAGING REPORT ---
L-SPINE MIN 4 VIEWS ROUTINE CLINICAL HISTORY: Right low back pain. COMPARISON: Lumbar spine radiographs June 12, 2017. FINDINGS: There is minimal rightward curvature of the lumbar spine. Vertebral body heights are maintained. There is no fracture or suspicious lesion within the lumbar spine. Disc spaces are preserved. There is mild endplate osteophytosis at several levels. Note is made of cholecystectomy clips. A few probable small right renal calculi are noted. IMPRESSION: 1. No acute lumbar spine fracture or subluxation. 2. Mild multilevel degenerative disc disease and facet arthrosis. 3. Probable right-sided nephrolithiasis. Electronically signed by: Dameon Wu M.D. 09/11/2017 6:03 PM Dictated Date/Time: 09/11/2017 5:59 PM
[2017-09-11 18:42] VITALS: BP 127/84; PULSE 74; O2SAT 98
[2017-09-11] MEDS ORDERED: CYCL10TA6 PO (18:45)
[2017-09-11] MEDS ORDERED: DICL1GEL12 TOP (18:45)
[2017-09-11] MEDS ORDERED: DIPH1TAB87 PO (21:31)
[2017-09-11] MEDS ORDERED: PRZ1 PO (22:16)
== END 2017-09-11 18:57 | disposition home or self-care (01) ==
LOC: C.EDB 17:08 → C.EDD 18:57
DX: M54.5 Low back pain (principal); F41.9 Anxiety disorder, unspecified; J45.909 Unspecified asthma, uncomplicated; F31.9 Bipolar disorder, unspecified; K57.30 Diverticulosis of large intestine without perforation or abscess without bleeding; N80.9 Endometriosis, unspecified; Z87.442 Personal history of urinary calculi; G43.909 Migraine, unspecified, not intractable, without status migrainosus; E66.9 Obesity, unspecified; F43.10 Post-traumatic stress disorder, unspecified; Z87.01 Personal history of pneumonia (recurrent); Z80.9 Family history of malignant neoplasm, unspecified; Z82.49 Family history of ischemic heart disease and other diseases of the circulatory system; Z84.1 Family history of disorders of kidney and ureter; Z83.6 Family history of other diseases of the respiratory system; F17.210 Nicotine dependence, cigarettes, uncomplicated; Z79.899 Other long term (current) drug therapy

== ENCOUNTER 2017-11-28 13:34 | Emergency (ER) | payer OTHER ==
[~2017-11-28] VITALS: Ht 157.5 cm; Wt 91.0 kg
[~2017-11-28 13:34] MED LIST changes: +ACET1TAB84 PO; -ATV1 PO; +DICL1GEL12 TOP; +DIPH1TAB87 PO; +IBUP-103 PO; +LAMO1TAB21 PO; -LAMO25TA PO; +LMC25 PO; -PRM625 PO; +PRZ1 PO; +QUET-115 PO; -QUET1TAB34 PO
[2017-11-28 13:41] VITALS: TEMP 37; Ht 157.5 cm; Wt 91.0 kg
[2017-11-28] MEDS ORDERED: KETOROLAC TROMETHAMINE 30 MG/ML VIAL IV STA (14:02)
[2017-11-28] MEDS ORDERED: SODIUM CHLORIDE 0.9% 1000ML 1,000 ML IV STA (14:02)
[2017-11-28] MEDS ORDERED: ALBUTEROL 0.083% NEBU SOLN 3 ML VIAL INH STA (14:05)
[2017-11-28 14:14] LABS: BASO % 0.5 %; BASO ABS # 0.02 K/uL (0-0.2); EOS % 0.2 %; EOS ABS # 0.01 K/uL (0-0.5); HEMATOCRIT 44.7 % (37-47); HEMOGLOBIN 15.6 g/dL (12.0-16.0); LYMPH % 27.4 %; LYMPH ABS # 1.15 K/uL (1.2-3.4); MEAN CELL VOLUME 83.4 fL (80-100); MEAN CORPUSCULAR HEMOGLOBIN 29.1 pg (25-34); MEAN CORPUSCULAR HGB CONC 34.9 g/dl (32-36); MEAN PLATELET VOLUME 9.7 fL (7.4-10.4); MONO % 13.3 %; MONO ABS # 0.56 K/uL (0.11-0.59); NEUT % 58.6 %; NEUT ABS # 2.46 K/uL (1.4-6.5); PLATELET COUNT 166 K/uL (130-400); RED CELL DISTRIBUTION WIDTH CV 12.8 % (11.5-14.5); RED CELL DISTRIBUTION WIDTH SD 38.3 fL (36.4-46.3)
[2017-11-28] MEDS ORDERED: BENZONATATE 100MG CAP PO ONE (14:15)
--- NOTE | 2017-11-28 14:21 | EMERGENCY ROOM VISIT NOTE ---
History Report prepared by Gelacio: Luis Fernando Bird Under the Supervision of: Dr. Zack Hall D.O. First contact with patient: 13:49 Chief Complaint: SHORTNESS OF BREATH Stated Complaint: CHEST PAIN,COUGHING,VOMITING Nursing Triage Summary: c/o coughing to the point of vomitting coughing for the past 3-4 days with green sputum and SOB History of Present Illness The patient is a 32 year old female who presents to the Emergency Room with complaints of a persistent cough that she has been experiencing for the past three days. The patient states that her "lungs hurt" secondary to her cough, and describes this pain as the chest pain that she commonly has with the episodes of bronchitis that she has had in the past. The patient notes that the chest pain is only present with the cough and that she would not have the pain if it was not for the persistent coughing. The cough is dry and non-producing, but she has coughed to the point of vomiting multiple times. The emesis has been green. The patient is also complaining of a runny nose, sore throat, and body aches. She denies any other headache, change in vision, fevers, nausea, diarrhea, pain with urination, and melena. Source of History: patient Onset: 3 days Position: other (Respiratory) Quality: other (Cough) Timing: other (Persistent) Associated Symptoms: + sorethroat, + vomiting, No fevers, No chest pain, No diarrhea Review of Systems See HPI for pertinent positives & negatives. A total of 10 systems reviewed and were otherwise negative. Past Medical & Surgical Medical Problems: (1) Acute anxiety (2) Asthma, Unspecified (3) Bipolar II disorder (4) Bronchitis (5) Cannabis abuse (6) Carbon monoxide poisoning (7) Chest pain (8) Cholecystectomy (9) Chronic pelvic pain in female (10) Cluster B personality disorder (11) Deliberate self-cutting (12) Depress Disorder-Unspec (13) Diverticulosis Colon (W/O Ment Of Hemorrhage) (14) Endometriosis (15) Endoscopic retrograde cholangiopancreatography (16) Kidney stone (17) Migraine (18) Migraine Unspecified W/O Intractable Migraine (19) Nausea (20) Nausea, vomiting, and diarrhea (21) Nicotine abuse (22) Obesity (BMI 30-39.9) (23) Pneumonia (24) PTSD (post-traumatic stress disorder) (25) Removal of ovarian cyst (26) Renal colic on left side (27) SOB (shortness of breath) (28) Syncope (29) Tubal Ligation Status (30) Ureteral stent placement Surgical Problems: (1) S/P BSO (bilateral salpingo-oophorectomy) (2) S/P laparoscopic hysterectomy Family History Cancer Hypertension Kidney stone Lung disease Social History Smoking Status: Current Every Day Smoker Alcohol Use: none Drug Use: marijuana Marital Status: Housing Status: lives with family Occupation Status: unemployed Current/Historical Medications Scheduled Benzonatate (Tessalon Perles), 100 MG PO TID Lamotrigine (Lamotrigine), 25 MG PO BID Lamotrigine (Lamotrigine), 100 MG PO BID Pediatric Multiple Vitamin W/ (Flintstones Chewable), 1 TAB PO QAM Prazosin HCl (Prazosin HCl), 1 MG PO HS Quetiapine Fumarate (Quetiapine Fumarate), 100 MG PO HS Scheduled PRN Acetaminophen (Tylenol Arthritis Ext Rel), 1,300 MG PO UD PRN for Pain Diphenhydramine Hcl (Benadryl Allergy), 50 MG PO UD PRN for Allergy Symptoms Allergies Coded Allergies: Chlorine (Verified Allergy, Unknown, BLEACH-ITCHY, 11/28/17) Topiramate (Verified Allergy, Unknown, low bp-fainting, 11/28/17) Prednisone (Verified Adverse Reaction, Intermediate, PSYCOTIC, 11/28/17) Propranolol (Verified Adverse Reaction, Intermediate, dizziness-LOW BP FAINTING, 11/28/17) Metoclopramide (Verified Adverse Reaction, Mild, makes me feel "like i am on speed", 11/28/17) pt Physical Exam Vital Signs Date Time Temp Pulse Resp B/P (MAP) Pulse Ox O2 Delivery O2 Flow Rate FiO2 11/28/17 16:08 91 22 131/90 94 11/28/17 15:36 89 23 92 11/28/17 15:31 135/97 11/28/17 15:06 95 20 92 11/28/17 15:01 143/90 11/28/17 15:00 89 22 143/90 92 Room Air 11/28/17 14:41 124/88 11/28/17 14:07 91 11/28/17 14:01 84 22 131/86 91 Room Air 11/28/17 13:41 37.0 113 16 136/93 98 Physical Exam GENERAL: Sitting up in bed, alert, talking in full sentences, well nourished, no distress, non-toxic EYE EXAM: normal conjunctiva. OROPHARYNX: no exudate, no erythema, lips, buccal mucosa, and tongue normal and mucous membranes are moist NECK: supple, no nuchal rigidity, no adenopathy, non-tender LUNGS: Clear to auscultation. Normal chest wall mechanics HEART: no murmurs, S1 normal and S2 normal ABDOMEN: abdomen soft, non-tender, normo-active bowel sounds, no masses, no rebound or guarding. BACK: Back is symmetrical on inspection and there is no deformity, no midline tenderness, no CVA tenderness. SKIN: no rashes and no bruising UPPER EXTREMITIES: upper extremities are grossly normal. LOWER EXTREMITIES: No pitting edema.Calves are equal and bilateral. NEURO EXAM: Normal sensorium, cranial nerves II-XII grossly intact, normal speech, no gross weakness of arms, no gross weakness of legs. Medical Decision & Procedures ER Provider Diagnostic Interpretation: Radiology results as stated below per my review and the radiologist's interpretation: CHEST 2 VIEWS ROUTINE HISTORY: cough COMPARISON: Chest 04/11/2017. FINDINGS: The lungs are clear. Cardiac silhouette is normal in size. No pleural effusions. No pneumothorax. Prior cholecystectomy. IMPRESSION: No acute process. Electronically signed by: Teto Vaughn M.D. 11/28/2017 2:31 PM Dictated Date/Time: 11/28/2017 2:29 PM Laboratory Results 11/28/17 13:55 Red Blood Count 5.36, Mean Corpuscular Volume 83.4, Mean Corpuscular Hemoglobin 29.1, Mean Corpuscular Hemoglobin Concent 34.9, Mean Platelet Volume 9.7, Neutrophils (%) (Auto) 58.6, Lymphocytes (%) (Auto) 27.4, Monocytes (%) (Auto) 13.3, Eosinophils (%) (Auto) 0.2, Basophils (%) (Auto) 0.5, Neutrophils # (Auto ) 2.46, Lymphocytes # (Auto) 1.15, Monocytes # (Auto) 0.56, Eosinophils # (Auto ) 0.01, Basophils # (Auto) 0.02 11/28/17 13:55 Test 11/28/17 13:55 11/28/17 14:00 White Blood Count 4.20 K/uL (4.8-10.8) Red Blood Count 5.36 M/uL (4.2-5.4) Hemoglobin 15.6 g/dL (12.0-16.0) Hematocrit 44.7 % (37-47) Mean Corpuscular Volume 83.4 fL (80-100) Mean Corpuscular Hemoglobin 29.1 pg (25-34) Mean Corpuscular Hemoglobin Concent 34.9 g/dl (32-36) Platelet Count 166 K/uL (130-400) Mean Platelet Volume 9.7 fL (7.4-10.4) Neutrophils (%) (Auto) 58.6 % Lymphocytes (%) (Auto) 27.4 % Monocytes (%) (Auto) 13.3 % Eosinophils (%) (Auto) 0.2 % Basophils (%) (Auto) 0.5 % Neutrophils # (Auto) 2.46 K/uL (1.4-6.5) Lymphocytes # (Auto) 1.15 K/uL (1.2-3.4) Monocytes # (Auto) 0.56 K/uL (0.11-0.59) Eosinophils # (Auto) 0.01 K/uL (0-0.5) Basophils # (Auto) 0.02 K/uL (0-0.2) RDW Standard Deviation 38.3 fL (36.4-46.3) RDW Coefficient of Variation 12.8 % (11.5-14.5) Immature Granulocyte % (Auto) 0.0 % Immature Granulocyte # (Auto) 0.00 K/uL (0.00-0.02) Anion Gap 11.0 mmol/L (3-11) Est Creatinine Clear Calc Drug Dose 92.3 ml/min Estimated GFR () 96.1 Estimated GFR (Non- 82.9 BUN/Creatinine Ratio 15.1 (10-20) Calcium Level 9.1 mg/dl (8.5-10.1) Influenza Type A Antigen Neg for Influ A (NEG) Influenza Type B Antigen POS for Influ B (NEG) Laboratory results per my review. Medications Administered Medications (Trade) Dose Ordered Sig/Carlie Route Start Time Stop Time Status Last Admin Dose Admin Ketorolac Tromethamine (Toradol Inj) 30 mg NOW STAT IV 11/28/17 14:02 11/28/17 14:04 DC 11/28/17 14:50 30 MG Sodium Chloride 1,000 ml @ 999 mls/hr Q1H1M STAT IV 11/28/17 14:02 11/28/17 15:02 DC 11/28/17 14:02 999 MLS/HR Benzonatate (Tessalon Perles Cap) 100 mg NOW ONCE PO 11/28/17 14:15 11/28/17 14:16 DC 11/28/17 14:50 100 MG Albuterol Sulfate (Ventolin 0.083% 2.5MG/3ML Neb) 2.5 mg NOW STAT INH 11/28/17 14:05 11/28/17 14:06 DC 11/28/17 14:50 2.5 MG ECG Per My Interpretation Indication: chest pain, other (Cough, Chest Pain) Rate (beats per minute): 95 Rhythm: sinus rhythm Findings: other (Normal axis, No ST elevations or depressions) ED Course ED COURSE: Vital signs were reviewed and showed tachycardic vitals. The patients medical record was reviewed The above diagnostic studies were performed and reviewed. ED treatments and interventions as stated above. 1352: The patient was evaluated in room C3. A complete history and physical examination was performed. 1402: Ordered Sodium Chloride 1000 mL @ 999 mL/hr IV, Toradol 30 mg IV. 1405: Ordered Albuterol Sulfate 2.5 mg INH. 1415: Ordered Benzonatate 100 mg PO. 1524: Upon reevaluation, the patient is resting in bed.I discussed my findings with the patient and she understands and agrees with the treatment plan. Based on the patients age, coexisting illnesses, exam and lab findings the decision to treat as an outpatient was made. The patient remained stable while under my care. The patient appeared well at the time of discharge. Medical Decision Differential diagnoses includes but is not limited to pneumonia, bronchitis, COPD/Asthma exacerbation, pneumothorax, pulmonary embolism, congestive heart failure, acute coronary syndrome. Patient is a 32-year-old female presents to ER for 3 days worth of a persistent cough for which she is bringing up intermittent green sputum. Patient denies any fevers. Chest pain is only present with coughing. On exam lungs are clear. Vitals are unremarkable. Labs along with influenza and chest x-ray were obtained. The remarkable for influenza B. CBC and BMP were fairly unremarkable. Chest x-ray unremarkable. EKG was fairly unremarkable. Patient was obtained at bedside. Symptoms have been present for greater than 3 days. Tamiflu was not given. Patient was discharged to follow-up with PCP as an outpatient. Discussed with Pt concerning signs and symptoms to watch out for. Pt was instructed to follow up with their PCP and discussed with the patient their option to return to the ED at anytime for persistent or worsening symptoms. The appropriate anticipatory guidance and out-patient management, including indications for return to the emergency department, were explained at length to the patient and understood. Medication Reconcilliation Current Medication List: was personally reviewed by me Blood Pressure Screening Patient's blood pressure: Normal blood pressure Impression Primary Impression: Influenza Scribe Attestation The scribe's documentation has been prepared under my direction and personally reviewed by me in its entirety. I confirm that the note above accurately reflects all work, treatment, procedures, and medical decision making performed by me. Departure Information Dispostion Home / Self-Care Prescriptions Benzonatate (TESSALON PERLES) 100 Mg Cap 100 MG PO TID, #30 CAP Prov: Zack Hall, DO 11/28/17 Referrals Tanesha Odonnell D.O. (PCP) Forms HOME CARE DOCUMENTATION FORM, IMPORTANT VISIT INFORMATION Patient Instructions My [facility] Additional Instructions Please follow up with your primary care doctor with in the next 24 hours. Any worsening of your symptoms, please return to the ED immediately. This includes any fevers greater than 100.4, worsening pain, chest pain, shortness breath, persistent nausea, vomiting, unable to eat or drink, or any other concerning signs or symptoms from your standpoint. Please take Tylenol or Motrin as needed for fevers. Please try to remain as hydrated as possible.
--- NOTE | 2017-11-28 14:33 | DIAGNOSTIC IMAGING REPORT ---
CHEST 2 VIEWS ROUTINE HISTORY: cough COMPARISON: Chest 04/11/2017. FINDINGS: The lungs are clear. Cardiac silhouette is normal in size. No pleural effusions. No pneumothorax. Prior cholecystectomy. IMPRESSION: No acute process. Electronically signed by: Teto Vaughn M.D. 11/28/2017 2:31 PM Dictated Date/Time: 11/28/2017 2:29 PM
[2017-11-28 14:36] LABS: CALCIUM 9.1 mg/dl (8.5-10.1); CREATININE 0.91 mg/dl (0.60-1.20); POTASSIUM 3.7 mmol/L (3.5-5.1)
[2017-11-28 15:00] LABS: INFLUENZA B ANTIGEN POS for Influ B (NEG)
[2017-11-28] MEDS ORDERED: BENZ100C18 PO (15:21)
[2017-11-28 16:08] VITALS: BP 131/90; PULSE 91; O2SAT 94
== END 2017-11-28 16:07 | disposition home or self-care (01) ==
LOC: C.EDB 13:36 → C.EDC 16:07
DX: J10.1 Influenza due to other identified influenza virus with other respiratory manifestations (principal); J45.909 Unspecified asthma, uncomplicated; F31.81 Bipolar II disorder; F17.200 Nicotine dependence, unspecified, uncomplicated; F12.10 Cannabis abuse, uncomplicated; Z91.048 Other nonmedicinal substance allergy status; Z88.8 Allergy status to other drugs, medicaments and biological substances; Z82.49 Family history of ischemic heart disease and other diseases of the circulatory system; Z84.1 Family history of disorders of kidney and ureter; Z83.6 Family history of other diseases of the respiratory system

== ENCOUNTER 2017-12-28 18:39 | Emergency (ER) | payer OTHER ==
[~2017-12-28] VITALS: Ht 157.5 cm; Wt 96.0 kg
[~2017-12-28 18:39] MED LIST changes: -DICL1GEL12 TOP; -IBUP-103 PO
[2017-12-28 18:44] VITALS: TEMP 36.6; Ht 157.5 cm; Wt 96.0 kg
[2017-12-28] MEDS ORDERED: OXYCODONE HCL IR 5 MG TAB (IMMEDIATE RELEASE) PO STA (20:53)
--- NOTE | 2017-12-28 20:55 | EMERGENCY ROOM VISIT NOTE ---
History Report prepared by Gelacio: Mariana Crump Under the Supervision of: Dr. Gregorio Lombardi D.O. First contact with patient: 20:44 Chief Complaint: FLANK PAIN Stated Complaint: LOWER BACK PAIN, NAUSEA, VOITING History of Present Illness The patient is a 32 year old female who presents to the Emergency Room with complaints of persistent lower back pain since 1699 today. She currently rates her pain a 6/10 in severity. She notes abdominal pain. She has taken Ibuprofen, though no relief. She relates the pain to past kidney stones. She reports burning with urination. She notes that she is not urinating very much. She has a history of endometriosis and hysterectomy. She reports a history of ovarian cysts. She denies taking any daily medications. Source of History: patient Onset: 1699 today Position: back (lower) Symptom Intensity: 6/10 Timing: other (persistent) Associated Symptoms: + abdominal pain, + urinary symptoms (burning with urination) Review of Systems See HPI for pertinent positives & negatives. A total of 10 systems reviewed and were otherwise negative. Past Medical & Surgical Medical Problems: (1) Acute anxiety (2) Asthma, Unspecified (3) Bipolar II disorder (4) Bronchitis (5) Cannabis abuse (6) Carbon monoxide poisoning (7) Chest pain (8) Cholecystectomy (9) Chronic pelvic pain in female (10) Cluster B personality disorder (11) Deliberate self-cutting (12) Depress Disorder-Unspec (13) Diverticulosis Colon (W/O Ment Of Hemorrhage) (14) Endometriosis (15) Endoscopic retrograde cholangiopancreatography (16) Kidney stone (17) Migraine (18) Migraine Unspecified W/O Intractable Migraine (19) Nausea (20) Nausea, vomiting, and diarrhea (21) Nicotine abuse (22) Obesity (BMI 30-39.9) (23) Pneumonia (24) PTSD (post-traumatic stress disorder) (25) Removal of ovarian cyst (26) Renal colic on left side (27) SOB (shortness of breath) (28) Syncope (29) Tubal Ligation Status (30) Ureteral stent placement Surgical Problems: (1) S/P BSO (bilateral salpingo-oophorectomy) (2) S/P laparoscopic hysterectomy Family History Cancer Hypertension Kidney stone Lung disease Social History Smoking Status: Current Every Day Smoker Alcohol Use: none Drug Use: marijuana Marital Status: Housing Status: lives with family Occupation Status: unemployed Current/Historical Medications Scheduled Lamotrigine (Lamotrigine), 25 MG PO BID Lamotrigine (Lamotrigine), 100 MG PO BID Lorazepam (Ativan), 0.5 MG PO Q6H Pediatric Multiple Vitamin W/ (Flintstones Chewable), 1 TAB PO QAM Polyethylene Glycol 3350 (Miralax), 17 GM PO DAILY Prazosin HCl (Prazosin HCl), 1 MG PO HS Quetiapine Fumarate (Quetiapine Fumarate), 100 MG PO HS Scheduled PRN Acetaminophen (Tylenol Arthritis Ext Rel), 1,300 MG PO UD PRN for Pain Diphenhydramine Hcl (Benadryl Allergy), 50 MG PO UD PRN for Allergy Symptoms Allergies Coded Allergies: Chlorine (Verified Allergy, Unknown, BLEACH-ITCHY, 12/28/17) Topiramate (Verified Allergy, Unknown, low bp-fainting, 12/28/17) Prednisone (Verified Adverse Reaction, Intermediate, PSYCOTIC, 12/28/17) Propranolol (Verified Adverse Reaction, Intermediate, dizziness-LOW BP FAINTING, 12/28/17) Metoclopramide (Verified Adverse Reaction, Mild, makes me feel "like i am on speed", 12/28/17) pt Physical Exam Vital Signs Date Time Temp Pulse Resp B/P (MAP) Pulse Ox O2 Delivery O2 Flow Rate FiO2 12/28/17 21:15 81 20 137/103 100 Room Air 12/28/17 18:44 36.6 99 20 127/82 99 Room Air Physical Exam GENERAL: Patient is awake, alert, and in no acute distress. Patient is somewhat anxious and uncomfortable appearing. EYES: The conjunctivae are clear. The pupils are round and reactive. EARS, NOSE, MOUTH AND THROAT: The nose is without any evidence of any deformity. Mucous membranes are moist tongue is midline NECK: The neck is nontender and supple. RESPIRATORY: Normal respiratory effort is noted there is no evidence of wheezing rhonchi or rales CARDIOVASCULAR: Regular rate and rhythm noted there no murmurs rubs or gallops normal S1 normal S2 GASTROINTESTINAL: The abdomen is soft. Bowel sounds are present in all quadrants. Abdomen is nontender BACK: Right CVA tenderness to percussion, no midline tenderness and ROM appears intact. MUSCULOSKELETAL/EXTREMITIES: There is no evidence of gross deformity full range of motion is noted in the hips and shoulders SKIN: There is no obvious evidence of any rash. There are no petechiae, pallor or cyanosis noted. NEUROLOGIC: Patient is awake alert and oriented x3 strength is symmetric patellar reflexes are 2+ bilaterally Medical Decision & Procedures ER Provider Diagnostic Interpretation: Radiology results as stated below per my review and radiologist interpretation: L-SPINE MIN 4 VIEWS ROUTINE CLINICAL HISTORY: 32 years-old Female presenting with right flank pain. TECHNIQUE: Frontal, bilateral oblique, lateral, and coned in lateral views lumbar spine were obtained. COMPARISON: 09/11/2017. FINDINGS: Cholecystectomy clips noted. Moderate stool burden in the right and proximal transverse colon. No lumbar scoliosis. Normal lumbar lordosis. Vertebral bodies maintain normal height and alignment. Intervertebral disc heights preserved. No pars defect. No significant degenerative change. No radiographic evidence of compression deformity or subluxation. No osseous neural foraminal narrowing. The presence of a moderate burden of stool in the right colon limits evaluation for renal calculus. IMPRESSION: 1. Normal radiographic evaluation of the lumbar spine. 2. Moderate stool burden in the right colon suggests constipation. 3. Limited evaluation for renal calculi secondary to stool burden. Electronically signed by: Bienvenido Mireles M.D. 12/28/2017 9:57 PM Dictated Date/Time: 12/28/2017 9:55 PM Laboratory Results Test 12/28/17 00:00 12/28/17 20:35 Urine Test NEG (NEG) Urine Color YELLOW Urine Appearance CLEAR (CLEAR) Urine pH 6.5 (4.5-7.5) Urine Specific [place] 1.017 (1.000-1.030) Urine Protein NEG (NEG) Urine Glucose (UA) NEG (NEG) Urine Ketones NEG (NEG) Urine Occult Blood NEG (NEG) Urine Nitrite NEG (NEG) Urine Bilirubin NEG (NEG) Urine Urobilinogen NEG (NEG) Urine Leukocyte Esterase SMALL (NEG) Urine WBC (Auto) 5-10 /hpf (0-5) Urine RBC (Auto) 0-4 /hpf (0-4) Urine Hyaline Casts (Auto) 0 /lpf (0-5) Urine Epithelial Cells (Auto) >30 /lpf (0-5) Urine Bacteria (Auto) NEG (NEG) Laboratory results per my review. Medications Administered Medications (Trade) Dose Ordered Sig/Carlie Route Start Time Stop Time Status Last Admin Dose Admin Oxycodone HCl (Roxicodone Immediate Rel Tab) 5 mg NOW STAT PO 12/28/17 20:53 12/28/17 20:54 DC 12/28/17 21:13 5 MG Ondansetron HCl (Zofran Odt) 4 mg ONE ONCE PO 12/28/17 21:00 12/28/17 21:01 DC 12/28/17 21:13 4 MG Oxycodone HCl (Roxicodone Immediate Rel 5MG Home Pack) 1 homepack UD ONCE PO 12/28/17 22:00 12/28/17 22:01 DC 12/28/17 22:14 1 HOMEPACK ED Course 2047: The patient was evaluated in room A12B. A complete history and physical examination were performed. 2052: Ordered Oxycodone HCl 5 mg PO 2099: Ordered Zofran 4 mg PO 2199: Ordered Oxycodone HCl 1 homepack PO 2204: I reassessed the patient at this time. She is feeling better and resting comfortably. I discussed the results and treatment plan with the patient. I answered all pertaining questions that she had. She expressed understanding and verbalized agreement. The patient will be discharged home. Medical Decision Prior records/ancillary studies reviewed. Triage Nursing notes reviewed. The patient's history was concerning for back pain. Differential diagnosis: Etiologies such as musculoskeletal, disc herniation, fracture, aortic disease, metastatic disease, cord compression, discitis, infection, renal colic, gastrointestinal, acute exacerbation of chronic back pain, sciatica, cauda equina, as well as others were entertained. The patient is a 32-year-old female who presented to the emergency department for an evaluation of flank pain. The patient did not have signs of urinary tract infection on urinalysis. She had no hematuria. X-rays revealed signs of stool overburdened. At this time I feel this could represent constipation. She was started on pain medication. She was encouraged to continue all medications as prescribed and follow-up with her primary care physician for further evaluation. Otherwise she was encouraged to return the emergency department immediately if symptoms change worsen or the need arises. Medication Reconcilliation Current Medication List: was personally reviewed by me Blood Pressure Screening Patient's blood pressure: Elevated blood pressure Blood pressure disposition: Elevated BP felt to be situational Impression Primary Impression: Constipation Additional Impression: Right flank pain Scribe Attestation The scribe's documentation has been prepared under my direction and personally reviewed by me in its entirety. I confirm that the note above accurately reflects all work, treatment, procedures, and medical decision making performed by me. Departure Information Dispostion Home / Self-Care Prescriptions Polyethylene Glycol 3350 (MIRALAX) 1 Pow Pow 17 GM PO DAILY, #527 GM Prov: Gregorio Lombardi, DO 12/28/17 Referrals Tanesha Odonnell D.O. (PCP) Forms HOME CARE DOCUMENTATION FORM, IMPORTANT VISIT INFORMATION, Work Instructions Patient Instructions Back Pain Relieve, ED Constipation, My [facility] Additional Instructions Call your family doctor in the morning to schedule a follow-up appointment. Rest and avoid any strenuous activity. Drink plenty clear liquids. Problem Qualifiers Primary Impression: Constipation Constipation type: unspecified constipation type Qualified Codes: K59.00 - Constipation, unspecified
[2017-12-28] MEDS ORDERED: ONDANSETRON 4MG OD TAB PO ONE (21:00)
[2017-12-28 21:15] VITALS: BP 137/103; PULSE 81; O2SAT 100
[2017-12-28] MEDS ORDERED: LORA-741 PO (21:16)
[2017-12-28] MEDS ORDERED: POLY335019 PO (21:51)
--- NOTE | 2017-12-28 21:58 | DIAGNOSTIC IMAGING REPORT ---
L-SPINE MIN 4 VIEWS ROUTINE CLINICAL HISTORY: 32 years-old Female presenting with right flank pain. TECHNIQUE: Frontal, bilateral oblique, lateral, and coned in lateral views lumbar spine were obtained. COMPARISON: 09/11/2017. FINDINGS: Cholecystectomy clips noted. Moderate stool burden in the right and proximal transverse colon. No lumbar scoliosis. Normal lumbar lordosis. Vertebral bodies maintain normal height and alignment. Intervertebral disc heights preserved. No pars defect. No significant degenerative change. No radiographic evidence of compression deformity or subluxation. No osseous neural foraminal narrowing. The presence of a moderate burden of stool in the right colon limits evaluation for renal calculus. IMPRESSION: 1. Normal radiographic evaluation of the lumbar spine. 2. Moderate stool burden in the right colon suggests constipation. 3. Limited evaluation for renal calculi secondary to stool burden. Electronically signed by: Bienvenido Mireles M.D. 12/28/2017 9:57 PM Dictated Date/Time: 12/28/2017 9:55 PM
[2017-12-28] MEDS ORDERED: OXYCODONE IR HOME PACK PO ONE (22:00)
== END 2017-12-28 22:25 | disposition home or self-care (01) ==
LOC: C.EDB 18:41 → C.EDA 22:25
DX: K59.00 Constipation, unspecified (principal); R10.9 Unspecified abdominal pain; J45.909 Unspecified asthma, uncomplicated; Z87.442 Personal history of urinary calculi; Z90.710 Acquired absence of both cervix and uterus; F41.9 Anxiety disorder, unspecified; Z90.49 Acquired absence of other specified parts of digestive tract; F17.200 Nicotine dependence, unspecified, uncomplicated; Z87.01 Personal history of pneumonia (recurrent); F31.81 Bipolar II disorder; Z98.890 Other specified postprocedural states; Z98.51 Tubal ligation status; Z96.0 Presence of urogenital implants; Z90.722 Acquired absence of ovaries, bilateral; Z90.79 Acquired absence of other genital organ(s); Z82.49 Family history of ischemic heart disease and other diseases of the circulatory system; Z84.1 Family history of disorders of kidney and ureter; Z79.899 Other long term (current) drug therapy

== ENCOUNTER 2018-02-06 16:00 | Emergency (ER) | payer OTHER ==
[~2018-02-06] VITALS: Ht 157.5 cm; Wt 89.0 kg
[~2018-02-06 16:00] MED LIST changes: +LORA-741 PO; +POLY335019 PO
[2018-02-06 16:04] VITALS: TEMP 36.8; Ht 157.5 cm; Wt 89.0 kg
--- NOTE | 2018-02-06 16:51 | EMERGENCY ROOM VISIT NOTE ---
ED Visit Note First contact with patient: 16:14 Resident Physician Supervision Note: I interviewed and examined the patient. Discussed with Dr. Hernandez and agree with findings and plan as documented in the note. Documented By: Rickey Brunson
--- NOTE | 2018-02-06 16:55 | EMERGENCY ROOM VISIT NOTE ---
History First contact with patient: 16:10 (Thiago Hernandez M.D.) First contact with patient: 16:14 (Rickey Brunson M.D.) Chief Complaint: CHEST PAIN Stated Complaint: CHEST PAIN - HARD TO BREATH - ANXIETY History of Present Illness The patient is a 33 year old female with a PMHx of bipolar disorder, PTSD, anxiety, SI who presents to the Emergency Room with complaints of intermittent crushing chest pain for the past 4 days . The pain comes whenever she gets upset. She has been getting upset a lot recently - her has been taken away from their home by [employer] for accusations of abusing her daughters. Her has since been 302'd in [place] for SI and pt has been taking it very poorly. Patient denies SI at present. She does have a history of cutting herself. She states she is only here because she was concerned about her heart. Pt is also asking for a medication for her anxiety - when asked to be specific she is states that Ativan works for her. She has been taking Ativan Q6H for her anxiety. Pt has been eatings skittle and Mountain Dew almost exclusively for the past 3 days. She does feel safe at home. She states that her children have been doing well. ROS: +SOB, 1 BM per day that is loose. SHx: Smokes 3/4 pack per day, smokes marijuana every day for her anxiety, has two children aged 15 and 13. Denies using cocaine, heroin or alcohol. (Thiago Hernandez M.D.) Source of History: patient Onset: 4 Position: chest Symptom Intensity: moderate Quality: pressure Timing: intermittent Modifying Factors (Worsening): rest Modifying Factors (Relieving): other (stress) Associated Symptoms: + SOB, No nausea, No vomiting (Rickey Brunson M.D.) Review of Systems See HPI for pertinent positives and negatives. A total of ten systems were reviewed and were otherwise negative. Constitutional: No fever, No chills Respiratory: + shortness of breath, No cough, No sputum, No wheezing, No dyspnea on exertion Cardiovascular: + chest pain, No orthopnea, No edema, No claudication, No palpitations Abdomen: + diarrhea (1 BM per day that is loose), No pain, No nausea, No vomiting, No constipation, No GI bleeding Genitourinary - Female: No dysuria Neurologic: No memory loss, No balance problems Endocrine: No excessive thirst Integumentary: No rash (Thiago Hernandez M.D.) Past Medical/Surgical History Medical Problems: (1) Acute anxiety (2) Asthma, Unspecified (3) Bipolar II disorder (4) Bronchitis (5) Cannabis abuse (6) Carbon monoxide poisoning (7) Chest pain (8) Cholecystectomy (9) Chronic pelvic pain in female (10) Cluster B personality disorder (11) Deliberate self-cutting (12) Depress Disorder-Unspec (13) Diverticulosis Colon (W/O Ment Of Hemorrhage) (14) Endometriosis (15) Endoscopic retrograde cholangiopancreatography (16) Kidney stone (17) Migraine (18) Migraine Unspecified W/O Intractable Migraine (19) Nausea (20) Nausea, vomiting, and diarrhea (21) Nicotine abuse (22) Obesity (BMI 30-39.9) (23) Pneumonia (24) PTSD (post-traumatic stress disorder) (25) Removal of ovarian cyst (26) Renal colic on left side (27) SOB (shortness of breath) (28) Syncope (29) Tubal Ligation Status (30) Ureteral stent placement Surgical Problems: (1) S/P BSO (bilateral salpingo-oophorectomy) (2) S/P laparoscopic hysterectomy (Rickey Brunson M.D.) Family History Cancer Hypertension Kidney stone Lung disease (Thiago Hernandez M.D.) Cancer Hypertension Kidney stone Lung disease (Rickey Brunson M.D.) Social History Smoking Status: Current Every Day Smoker Alcohol Use: none Drug Use: marijuana Marital Status: Housing Status: lives with family Occupation Status: unemployed (Thiago Hernandez M.D.) Current/Historical Medications Scheduled Lamotrigine (Lamictal), 150 MG PO DAILY Pediatric Multiple Vitamin W/ (Flintstones Chewable), 1 TAB PO QAM Polyethylene Glycol 3350 (Miralax), 17 GM PO DAILY Prazosin HCl (Prazosin HCl), 1 MG PO HS Quetiapine Fumarate (Quetiapine Fumarate), 100 MG PO HS Scheduled PRN Acetaminophen (Tylenol Arthritis Ext Rel), 1,300 MG PO UD PRN for Pain Diphenhydramine Hcl (Benadryl Allergy), 50 MG PO UD PRN for Allergy Symptoms Lorazepam (Ativan), 0.5 MG PO Q6H PRN for Anxiety/Agitation Lorazepam (Ativan), 1 MG PO DAILY PRN for Anxiety Physical Exam Vital Signs Date Time Temp Pulse Resp B/P (MAP) Pulse Ox O2 Delivery O2 Flow Rate FiO2 02/06/18 18:04 97 16 116/69 95 02/06/18 17:48 98 Room Air 02/06/18 16:04 36.8 119 20 153/101 99 Room Air (Rickey Brunson M.D.) Physical Exam Gen: Pt is crying in the room. Psych: Pt denies suicidal ideation and homicidal ideation. Pt feels safe at home. Patient denies any auditory or visual hallucinations. HEENT: Head - normocephalic and atraumatic. Pupils are equal, round, and reactive to light. Extraocular eye muscles are intact and sclera are anicteric. Ears - bilaterally patent canals with noninjected tympanic membranes and no evidence of hemotympanum. Nose - moist nasal mucosa without discharge. Mouth - moist buccal mucosa. Oropharynx is nonerythematous and there is no tonsillar exudate or edema noted. Neck: Supple; no JVD, nuchal rigidity, cervical lymphadenopathy, or auscultated bruits. Heart: Regular rate and rhythm. There is a normal S1 and S2 with no murmurs, clicks, or gallops appreciated. Lungs: Clear to auscultation bilaterally with no wheezes, rales, or rhonchi. Abdomen: Soft, completely nontender, nondistended, with good bowel sounds. There are no palpable pulsatile masses or hepatosplenomegaly. There is no guarding, rigidity, or rebound noted. Extremities: No evidence of cyanosis, clubbing, or edema. There are easily palpable peripheral pulses. Neuro:The patient is awake and alert, oriented to day, time, and place. Muscle strength is 5/5 in all 4 extremities. The patient has equal production generalist strength and equal pedal push and pull. There are no cerebellar signs. (Thiago Hernandez M.D.) Medical Decision & Procedures Laboratory Results 02/06/18 16:53 Red Blood Count 5.21, Mean Corpuscular Volume 84.6, Mean Corpuscular Hemoglobin 29.2, Mean Corpuscular Hemoglobin Concent 34.5, Mean Platelet Volume 9.8, Neutrophils (%) (Auto) 65.3, Lymphocytes (%) (Auto) 25.2, Monocytes (%) (Auto) 5.2, Eosinophils (%) (Auto) 3.7, Basophils (%) (Auto) 0.5, Neutrophils # (Auto) 5.55, Lymphocytes # (Auto) 2.14, Monocytes # (Auto) 0.44, Eosinophils # (Auto) 0.31, Basophils # (Auto) 0.04 02/06/18 16:53 Test 02/06/18 16:38 02/06/18 16:53 Urine Color YELLOW Urine Appearance CLEAR (CLEAR) Urine pH 7.0 (4.5-7.5) Urine Specific [place] 1.022 (1.000-1.030) Urine Protein NEG (NEG) Urine Glucose (UA) NEG (NEG) Urine Ketones NEG (NEG) Urine Occult Blood NEG (NEG) Urine Nitrite NEG (NEG) Urine Bilirubin NEG (NEG) Urine Urobilinogen NEG (NEG) Urine Leukocyte Esterase NEG (NEG) Urine Opiates Screen NEG (NEG) Urine Methadone, Qualitative NEG (NEG) Urine Barbiturates NEG (NEG) Urine Phencyclidine (PCP) Level NEG (NEG) Ur Amphetamine/Methamphetamine NEG (NEG) MDMA (Ecstasy) Screen NEG (NEG) Urine Benzodiazepines Screen NEG (NEG) Urine Cocaine Metabolite NEG (NEG) Urine Marijuana (THC) POS (NEG) White Blood Count 8.49 K/uL (4.8-10.8) Red Blood Count 5.21 M/uL (4.2-5.4) Hemoglobin 15.2 g/dL (12.0-16.0) Hematocrit 44.1 % (37-47) Mean Corpuscular Volume 84.6 fL (80-100) Mean Corpuscular Hemoglobin 29.2 pg (25-34) Mean Corpuscular Hemoglobin Concent 34.5 g/dl (32-36) Platelet Count 244 K/uL (130-400) Mean Platelet Volume 9.8 fL (7.4-10.4) Neutrophils (%) (Auto) 65.3 % Lymphocytes (%) (Auto) 25.2 % Monocytes (%) (Auto) 5.2 % Eosinophils (%) (Auto) 3.7 % Basophils (%) (Auto) 0.5 % Neutrophils # (Auto) 5.55 K/uL (1.4-6.5) Lymphocytes # (Auto) 2.14 K/uL (1.2-3.4) Monocytes # (Auto) 0.44 K/uL (0.11-0.59) Eosinophils # (Auto) 0.31 K/uL (0-0.5) Basophils # (Auto) 0.04 K/uL (0-0.2) RDW Standard Deviation 40.0 fL (36.4-46.3) RDW Coefficient of Variation 13.1 % (11.5-14.5) Immature Granulocyte % (Auto) 0.1 % Immature Granulocyte # (Auto) 0.01 K/uL (0.00-0.02) Anion Gap 4.0 mmol/L (3-11) Est Creatinine Clear Calc Drug Dose 86.5 ml/min Estimated GFR () 90.6 Estimated GFR (Non- 78.1 BUN/Creatinine Ratio 7.7 (10-20) Calcium Level 8.8 mg/dl (8.5-10.1) Total Bilirubin 0.2 mg/dl (0.2-1) Direct Bilirubin < 0.1 mg/dl (0-0.2) Aspartate Amino Transf (AST/SGOT) 12 U/L (15-37) Alanine Aminotransferase (ALT/SGPT) 14 U/L (12-78) Alkaline Phosphatase 115 U/L (45-117) Troponin I < 0.015 ng/ml (0-0.045) Total Protein 7.9 gm/dl (6.4-8.2) Albumin 3.8 gm/dl (3.4-5.0) Thyroid Stimulating Hormone (TSH) 1.510 uIu/ml (0.300-4.500) Salicylates Level 3.9 mg/dl (2.8-20) Acetaminophen Level < 2 ug/ml (10-30) Ethyl Alcohol mg/dL < 3.0 mg/dl (0-3) Laboratory results reviewed by me (Rickey Brunson M.D.) Medications Administered Medications (Trade) Dose Ordered Sig/Carlie Route Start Time Stop Time Status Last Admin Dose Admin Lorazepam (Ativan Tab) 1 mg NOW ONCE PO 02/06/18 17:00 02/06/18 17:01 DC 02/06/18 17:03 1 MG (Rickey Brunson M.D.) ECG Per My Interpretation Indication: chest pain Rate (beats per minute): 113 Rhythm: sinus tachycardia Findings: no acute ischemic change, no ectopy, other (normal axis) Change: no significant change (Thiago Hernandez M.D.) Change: Patient's electrocardiogram interpreted by me. (Rickey Brunson M.D.) Medical Decision The patient's care and disposition was discussed with Dr. Brunson, Attending ED Physician. This is a 33F with chest pain in the setting of anxiety. Differential diagnoses includes but is not limited to acute coronary syndrome, myocardial infarction, pericarditis, pulmonary embolus, aortic dissection, pneumonia, pneumothorax, musculoskeletal, shingles, esophageal, anxiety, psychological, somatic and malingering. Triage Nursing notes were reviewed. ED Course included an extensive history and physical exam, labs, and imaging. 4:15pm - Pt was seen and examined by Resident, Dr Hernandez. 4:30pm - Case with discussed with Dr. Brunson 4:45pm - Dr. Brunson examined patient and addition order for 1mg Ativan was placed. PDMP reviewed. 5:25pm - Lab work reviewed with patient. All normal. Urine was positive for marijuana. Pt is doing better after the Ativan. Chest pain has resolved. OK to go home with 5 tablets of Ativan. Talked about the risks of treating anxiety with Ativan - potential risk of rebound anxiety. Also addressed need to quit smoking. The pt was informed about the findings as listed above. All questions were answered. Return instructions were outlined and the patient was discharged in good condition. The patient was referred to PCP for recheck of the current condition. (Thiago Hernandez M.D.) Head Trauma GCS Score: 15 (Thiago Hernandez M.D.) Impression Primary Impression: Chest pain Additional Impressions: Anxiety Encounter for smoking cessation counseling Departure Information Dispostion Home / Self-Care Condition GOOD Prescriptions Lorazepam (ATIVAN) 1 Mg Tab 1 MG PO DAILY Y for Anxiety for 5 Days, #5 TAB Prov: Thiago Hernandez M.D. 02/06/18 Referrals Tanesha Odonnell D.O. (PCP) Patient Instructions Anxiety Disorder, ED Smoking Cessation, Lorazepam tablets, My [facility] Additional Instructions We have performed blood tests, an EKG and an Xray to evaluate for any metabolic , cardiac or respiratory causes of your chest pain. All of the tests have been negative. The chest pain you are experiencing is most likely related to your anxiety. We are discharging you with 5 tablets of 1mg of Ativan. Please take this medication carefully, and not more than 1 medication per day. If you take a lot of Ativan and stop taking it suddenly it cause can rebound anxiety. Information on Ativan will be printed for you on discharge. Please read this information carefully. Additional information on anxiety and smoking cessation will be provided for you. Please read this information carefully. If you chest pain worsens, occurs are rest or occurs when you are not upset please see your PCP or return to the ER immediately. Resident Involvement: Resident Care Provided Care Provided: Adult ED (Thiago Hernandez M.D.) Problem Qualifiers Primary Impression: Chest pain Chest pain type: unspecified Qualified Codes: R07.9 - Chest pain, unspecified
[2018-02-06] MEDS ORDERED: LORAZEPAM 1 MG TAB PO ONE (17:00)
[2018-02-06 17:10] LABS: BASO % 0.5 %; BASO ABS # 0.04 K/uL (0-0.2); EOS % 3.7 %; EOS ABS # 0.31 K/uL (0-0.5); HEMATOCRIT 44.1 % (37-47); HEMOGLOBIN 15.2 g/dL (12.0-16.0); IG# 0.01 K/uL (0.00-0.02); LYMPH % 25.2 %; LYMPH ABS # 2.14 K/uL (1.2-3.4); MEAN CELL VOLUME 84.6 fL (80-100); MEAN CORPUSCULAR HEMOGLOBIN 29.2 pg (25-34); MEAN CORPUSCULAR HGB CONC 34.5 g/dl (32-36); MEAN PLATELET VOLUME 9.8 fL (7.4-10.4); MONO % 5.2 %; MONO ABS # 0.44 K/uL (0.11-0.59); NEUT % 65.3 %; NEUT ABS # 5.55 K/uL (1.4-6.5); PLATELET COUNT 244 K/uL (130-400); RED CELL DISTRIBUTION WIDTH CV 13.1 % (11.5-14.5); WHITE BLOOD COUNT 8.49 K/uL (4.8-10.8)
[2018-02-06] MEDS ORDERED: LAMO150T PO (17:13)
[2018-02-06 17:31] LABS: ALBUMIN 3.8 gm/dl (3.4-5.0); ALT/SGPT 14 U/L (12-78); AST/SGOT 12 U/L (15-37); BLOOD UREA NITROGEN 7 mg/dl (7-18); CALCIUM 8.8 mg/dl (8.5-10.1); CARBON DIOXIDE 27 mmol/L (21-32); CREATININE 0.95 mg/dl (0.60-1.20); GLUCOSE 77 mg/dl (70-99); SODIUM 138 mmol/L (136-145)
[2018-02-06 17:42] LABS: ALKALINE PHOSPHATASE 115 U/L (45-117); TOTAL PROTEIN 7.9 gm/dl (6.4-8.2)
[2018-02-06] MEDS ORDERED: ATV/1 PO (17:52)
--- NOTE | 2018-02-06 17:56 | DIAGNOSTIC IMAGING REPORT ---
CHEST ONE VIEW PORTABLE CLINICAL HISTORY: Atypical chest pain COMPARISON STUDY: 11/28/2017 FINDINGS: The heart is normal in size. There is no mediastinal widening. There is nonspecific double density at the level aortic knob, likely secondary to visualization of the manubrium. There is no focal pulmonary consolidation. There is no failure. There are no pleural effusions.[ IMPRESSION: No active disease in the chest. Electronically signed by: Tyshawn Patel M.D. 02/06/2018 5:55 PM Dictated Date/Time: 02/06/2018 5:51 PM
[2018-02-06 18:04] VITALS: BP 116/69; PULSE 97; O2SAT 95
[2018-02-07] MEDS ORDERED: ATV/1 PO (21:42)
[2018-02-07] MEDS ORDERED: POLY335019 PO (21:44)
== END 2018-02-06 18:07 | disposition home or self-care (01) ==
LOC: C.EDB 16:01 → C.EDA 18:07
DX: F41.9 Anxiety disorder, unspecified (principal); Z71.89 Other specified counseling; R82.5 Elevated urine levels of drugs, medicaments and biological substances; F17.200 Nicotine dependence, unspecified, uncomplicated; Z82.49 Family history of ischemic heart disease and other diseases of the circulatory system; F31.81 Bipolar II disorder; F43.10 Post-traumatic stress disorder, unspecified; Z91.5 Personal history of self-harm

== ENCOUNTER 2018-02-07 20:39 | Emergency (ER) | payer OTHER ==
[~2018-02-07] VITALS: Ht 157.5 cm; Wt 88.0 kg
[~2018-02-07 20:39] MED LIST changes: +ATV/1 PO; +LAMO150T PO; -LAMO1TAB21 PO; -LMC25 PO
[2018-02-07 20:45] VITALS: TEMP 36.7; Ht 157.5 cm; Wt 88.0 kg
[2018-02-07 21:28] LABS: ALBUMIN 3.8 gm/dl (3.4-5.0); ALT/SGPT 16 U/L (12-78); AST/SGOT 14 U/L (15-37); BLOOD UREA NITROGEN 8 mg/dl (7-18); CARBON DIOXIDE 27 mmol/L (21-32); CREATININE 1.03 mg/dl (0.60-1.20); GLUCOSE 87 mg/dl (70-99); POTASSIUM 4.1 mmol/L (3.5-5.1); SODIUM 138 mmol/L (136-145)
--- NOTE | 2018-02-07 21:28 | EMERGENCY ROOM VISIT NOTE ---
History Report prepared by Gelacio: Mariana Crump Under the Supervision of: Dr. Gregorio Lombardi D.O. First contact with patient: 21:00 Chief Complaint: MENTAL HEALTH EVALUATION Stated Complaint: MHID History of Present Illness The patient is a 33 year old female who presents to the Emergency Room with complaints of episodic general suicidal ideations PL[employer]. Per case management, the patients home was being searched by police via a search warrant when she arrived home and became agitated with the police. He states the patient told the police that she was going to overdose on her medication and repetitively begged the police surgeon to remove his gun from his holster and shoot her. The patient states that the police were tearing up my home. She notes that she arrived there after a meeting with her . She believes her home was being searched due to an accusation by her . Per family, the patients home was being searched for fluids. The patient notes that she has taken her medications. She states that she took Ativan about one to two hours ago for anxiety. She denies any current alcohol use. Source of History: patient, family, other (case management) Onset: PLACE CH[employer] Position: other (general) Quality: other (suicidal ideations) Timing: other (episodic) Note: Note anxiety Review of Systems See HPI for pertinent positives & negatives. A total of 10 systems reviewed and were otherwise negative. Past Medical & Surgical Medical Problems: (1) Acute anxiety (2) Asthma, Unspecified (3) Bipolar II disorder (4) Bronchitis (5) Cannabis abuse (6) Carbon monoxide poisoning (7) Chest pain (8) Cholecystectomy (9) Chronic pelvic pain in female (10) Cluster B personality disorder (11) Deliberate self-cutting (12) Depress Disorder-Unspec (13) Diverticulosis Colon (W/O Ment Of Hemorrhage) (14) Endometriosis (15) Endoscopic retrograde cholangiopancreatography (16) Kidney stone (17) Migraine (18) Migraine Unspecified W/O Intractable Migraine (19) Nausea (20) Nausea, vomiting, and diarrhea (21) Nicotine abuse (22) Obesity (BMI 30-39.9) (23) Pneumonia (24) PTSD (post-traumatic stress disorder) (25) Removal of ovarian cyst (26) Renal colic on left side (27) SOB (shortness of breath) (28) Syncope (29) Tubal Ligation Status (30) Ureteral stent placement Surgical Problems: (1) S/P BSO (bilateral salpingo-oophorectomy) (2) S/P laparoscopic hysterectomy Family History Cancer Hypertension Kidney stone Lung disease Social History Smoking Status: Current Every Day Smoker Alcohol Use: none Drug Use: marijuana Marital Status: Housing Status: lives with family Occupation Status: unemployed Current/Historical Medications Scheduled Lamotrigine (Lamictal), 150 MG PO DAILY Pediatric Multiple Vitamin W/ (Flintstones Chewable), 1 TAB PO QAM Prazosin HCl (Prazosin HCl), 1 MG PO HS Quetiapine Fumarate (Quetiapine Fumarate), 100 MG PO HS Scheduled PRN Acetaminophen (Tylenol Arthritis Ext Rel), 1,300 MG PO UD PRN for Pain Diphenhydramine Hcl (Benadryl Allergy), 50 MG PO UD PRN for Allergy Symptoms Lorazepam (Ativan), 0.5 MG PO Q6H PRN for Anxiety/Agitation Lorazepam (Ativan), 1 MG PO DAILY PRN for Anxiety Polyethylene Glycol 3350 (Miralax), 17 GM PO DAILY PRN for Constipation Allergies Coded Allergies: Chlorine (Verified Allergy, Unknown, BLEACH-ITCHY, 02/06/18) Topiramate (Verified Allergy, Unknown, low bp-fainting, 02/06/18) Prednisone (Verified Adverse Reaction, Intermediate, PSYCOTIC, 02/06/18) Propranolol (Verified Adverse Reaction, Intermediate, dizziness-LOW BP FAINTING, 02/06/18) Metoclopramide (Verified Adverse Reaction, Mild, makes me feel "like i am on speed", 02/06/18) pt Physical Exam Vital Signs Date Time Temp Pulse Resp B/P (MAP) Pulse Ox O2 Delivery O2 Flow Rate FiO2 02/07/18 22:30 67 16 134/76 98 Room Air 02/07/18 20:45 36.7 82 16 149/80 98 Room Air Physical Exam GENERAL: Patient is awake, alert, and in no acute distress. Patient is tearful and anxious appearing. EYES: The conjunctivae are clear. The pupils are round and reactive. EARS, NOSE, MOUTH AND THROAT: The nose is without any evidence of any deformity. Mucous membranes are moist tongue is midline NECK: The neck is nontender and supple. RESPIRATORY: Normal respiratory effort is noted there is no evidence of wheezing rhonchi or rales CARDIOVASCULAR: Regular rate and rhythm noted there no murmurs rubs or gallops normal S1 normal S2 GASTROINTESTINAL: The abdomen is soft. Bowel sounds are present in all quadrants. Abdomen is nontender. MUSCULOSKELETAL/EXTREMITIES: There is no evidence of gross deformity full range of motion is noted in the hips and shoulders SKIN: There is no obvious evidence of any rash. There are no petechiae, pallor or cyanosis noted. NEUROLOGIC: Patient is tearful and anxious appearing. PSYCHIATRIC: Currently admitting to with a plan to overdose on her medication. Medical Decision & Procedures Laboratory Results 02/07/18 20:52 Red Blood Count 5.30, Mean Corpuscular Volume 85.1, Mean Corpuscular Hemoglobin 29.2, Mean Corpuscular Hemoglobin Concent 34.4, Mean Platelet Volume 10.2, Neutrophils (%) (Auto) 68.2, Lymphocytes (%) (Auto) 24.0, Monocytes (%) (Auto) 5.4, Eosinophils (%) (Auto) 1.8, Basophils (%) (Auto) 0.5, Neutrophils # (Auto) 5.53, Lymphocytes # (Auto) 1.95, Monocytes # (Auto) 0.44, Eosinophils # (Auto) 0.15, Basophils # (Auto) 0.04 02/07/18 20:52 Test 02/07/18 20:52 02/07/18 21:37 White Blood Count 8.12 K/uL (4.8-10.8) Red Blood Count 5.30 M/uL (4.2-5.4) Hemoglobin 15.5 g/dL (12.0-16.0) Hematocrit 45.1 % (37-47) Mean Corpuscular Volume 85.1 fL (80-100) Mean Corpuscular Hemoglobin 29.2 pg (25-34) Mean Corpuscular Hemoglobin Concent 34.4 g/dl (32-36) Platelet Count 282 K/uL (130-400) Mean Platelet Volume 10.2 fL (7.4-10.4) Neutrophils (%) (Auto) 68.2 % Lymphocytes (%) (Auto) 24.0 % Monocytes (%) (Auto) 5.4 % Eosinophils (%) (Auto) 1.8 % Basophils (%) (Auto) 0.5 % Neutrophils # (Auto) 5.53 K/uL (1.4-6.5) Lymphocytes # (Auto) 1.95 K/uL (1.2-3.4) Monocytes # (Auto) 0.44 K/uL (0.11-0.59) Eosinophils # (Auto) 0.15 K/uL (0-0.5) Basophils # (Auto) 0.04 K/uL (0-0.2) RDW Standard Deviation 41.3 fL (36.4-46.3) RDW Coefficient of Variation 13.3 % (11.5-14.5) Immature Granulocyte % (Auto) 0.1 % Immature Granulocyte # (Auto) 0.01 K/uL (0.00-0.02) Anion Gap 6.0 mmol/L (3-11) Est Creatinine Clear Calc Drug Dose 79.3 ml/min Estimated GFR () 82.1 Estimated GFR (Non- 70.9 BUN/Creatinine Ratio 7.5 (10-20) Calcium Level 9.0 mg/dl (8.5-10.1) Total Bilirubin 0.3 mg/dl (0.2-1) Direct Bilirubin < 0.1 mg/dl (0-0.2) Aspartate Amino Transf (AST/SGOT) 14 U/L (15-37) Alanine Aminotransferase (ALT/SGPT) 16 U/L (12-78) Alkaline Phosphatase 109 U/L (45-117) Total Protein 7.9 gm/dl (6.4-8.2) Albumin 3.8 gm/dl (3.4-5.0) Thyroid Stimulating Hormone (TSH) 1.550 uIu/ml (0.300-4.500) Ethyl Alcohol mg/dL < 3.0 mg/dl (0-3) Urine Color DK YELLOW Urine Appearance CLOUDY (CLEAR) Urine pH 6.0 (4.5-7.5) Urine Specific [place] 1.030 (1.000-1.030) Urine Protein TRACE (NEG) Urine Glucose (UA) NEG (NEG) Urine Ketones TRACE (NEG) Urine Occult Blood NEG (NEG) Urine Nitrite NEG (NEG) Urine Bilirubin NEG (NEG) Urine Urobilinogen NEG (NEG) Urine Leukocyte Esterase TRACE (NEG) Urine WBC (Auto) 5-10 /hpf (0-5) Urine RBC (Auto) 0-4 /hpf (0-4) Urine Hyaline Casts (Auto) 5-10 /lpf (0-5) Urine Epithelial Cells (Auto) >30 /lpf (0-5) Urine Bacteria (Auto) 1+ (NEG) Urine Crystals CALCIUM OXALATE (NONE Urine Test NEG (NEG) Urine Opiates Screen NEG (NEG) Urine Methadone, Qualitative NEG (NEG) Urine Barbiturates NEG (NEG) Urine Phencyclidine (PCP) Level NEG (NEG) Ur Amphetamine/Methamphetamine NEG (NEG) MDMA (Ecstasy) Screen NEG (NEG) Urine Benzodiazepines Screen NEG (NEG) Urine Cocaine Metabolite NEG (NEG) Urine Marijuana (THC) POS (NEG) Laboratory results per my review. Medications Administered Medications (Trade) Dose Ordered Sig/Carlie Route Start Time Stop Time Status Last Admin Dose Admin Lorazepam (Ativan Tab) 1 mg NOW STAT SL 02/07/18 21:34 02/07/18 21:35 DC 02/07/18 21:34 1 MG Lorazepam (Ativan Tab) 1 mg NOW STAT SL 02/07/18 23:37 02/07/18 23:39 DC 02/08/18 00:00 1 MG ED Course 5: The patient was evaluated in room A8. A complete history and physical examination were performed. 2133: Ordered Ativan 1 mg SL 2335: I reassessed the patient at this time. She is rocking back and forth in a corner. She is crying. The patient does not want to go home. 7: Ordered Ativan 1 mg SL 0230: This patient was signed out to Dr. Ruth at shift change. Medical Decision Prior records/ancillary studies reviewed. Triage Nursing notes reviewed. The patient's history was concerning for possible psychiatric disturbance. Differential diagnosis: Etiologies such as mood disorder, infection, hypoglycemia, electrolyte abnormalities, cardiac sources, intracerebral event, toxicologic, neurologic, as well as others were entertained. The patient is a 33-year-old female who presented to the emergency department for an evaluation of mental health problems. The patient was at home when the police were executing a search warrant. The patient had very severe anxiety and started having suicidal ideation. The patient was medically cleared in the emergency department. She was treated with Ativan in the emergency department. She was medically cleared and was able to be evaluated by the mental health case preparer and liner. At this time her evaluation is underway which will likely be followed by a bed search. The patient was signed out to Dr. Ruth at change of shift. Please see her note for continuation of care and further disposition. Medication Reconcilliation Current Medication List: was personally reviewed by me Blood Pressure Screening Patient's blood pressure: Elevated blood pressure Blood pressure disposition: Referred to PCP Impression Primary Impression: Anxiety disorder Additional Impression: Depression Scribe Attestation The scribe's documentation has been prepared under my direction and personally reviewed by me in its entirety. I confirm that the note above accurately reflects all work, treatment, procedures, and medical decision making performed by me. Departure Information Dispostion Still a Patient Referrals Tanesha Odonnell D.O. (PCP) Patient Instructions My [facility] Problem Qualifiers Primary Impression: Anxiety disorder Anxiety disorder type: unspecified anxiety disorder Qualified Codes: F41.9 - Anxiety disorder, unspecified Additional Impression: Depression Depression Type: unspecified Qualified Codes: F32.9 - Major depressive disorder, single episode, unspecified
[2018-02-07] MEDS ORDERED: LORAZEPAM 1 MG TAB SL STA ×2 (21:34→23:37)
[2018-02-07 21:39] LABS: ALKALINE PHOSPHATASE 109 U/L (45-117); TOTAL PROTEIN 7.9 gm/dl (6.4-8.2)
[2018-02-07] MEDS ORDERED: ATV/1 PO (21:42)
[2018-02-07] MEDS ORDERED: POLY335019 PO (21:44)
[2018-02-07 22:00] LABS: BASO % 0.5 %; BASO ABS # 0.04 K/uL (0-0.2); EOS % 1.8 %; EOS ABS # 0.15 K/uL (0-0.5); HEMATOCRIT 45.1 % (37-47); HEMOGLOBIN 15.5 g/dL (12.0-16.0); IG# 0.01 K/uL (0.00-0.02); LYMPH ABS # 1.95 K/uL (1.2-3.4); MEAN CELL VOLUME 85.1 fL (80-100); MEAN CORPUSCULAR HEMOGLOBIN 29.2 pg (25-34); MEAN CORPUSCULAR HGB CONC 34.4 g/dl (32-36); MEAN PLATELET VOLUME 10.2 fL (7.4-10.4); MONO % 5.4 %; MONO ABS # 0.44 K/uL (0.11-0.59); NEUT % 68.2 %; NEUT ABS # 5.53 K/uL (1.4-6.5); PLATELET COUNT 282 K/uL (130-400); RED CELL DISTRIBUTION WIDTH CV 13.3 % (11.5-14.5); RED CELL DISTRIBUTION WIDTH SD 41.3 fL (36.4-46.3); WHITE BLOOD COUNT 8.12 K/uL (4.8-10.8)
--- NOTE | 2018-02-08 06:40 | EMERGENCY ROOM VISIT NOTE ---
ED Visit Note First contact with patient: 04:09 33 yr old female who made multiple suicidal statements to police during episode of acute anxiety arrived here in the evening and was evaluated/medically cleared by Dr Lombardi. Patient feeling depressed and suicidal and wishing inpatient treatment. Signed out to me awaiting placement. Sleeping throughout night without issue/complaint. Mental Health liaison in to see patient and patient still wishing inpatient treatment. Bed search on hold overnight due to no open beds in area. Signed out to Dr Joseph awaiting placement.
[2018-02-08] MEDS ORDERED: LORAZEPAM 1 MG TAB SL STA (11:54)
--- NOTE | 2018-02-08 11:56 | EMERGENCY ROOM VISIT NOTE ---
ED Visit Note First contact with patient: 07:15 Pt signed out to me at change of shift. History and Physical verified by me. Pt accepted at the [facility], will go at three via [place].
[2018-02-08] MEDS ORDERED: LORAZEPAM 1 MG TAB ONE (14:52)
[2018-02-08 15:16] VITALS: BP 130/72; PULSE 92; O2SAT 97
== END 2018-02-08 15:00 ==
LOC: EDBD 20:39 → EDUNIT# 20:39 → C.EDA 20:41
DX: F41.9 Anxiety disorder, unspecified (principal); F32.9 Major depressive disorder, single episode, unspecified; R45.851 Suicidal ideations; J45.909 Unspecified asthma, uncomplicated; N80.9 Endometriosis, unspecified; F17.200 Nicotine dependence, unspecified, uncomplicated; Z87.442 Personal history of urinary calculi; Z87.01 Personal history of pneumonia (recurrent); Z90.49 Acquired absence of other specified parts of digestive tract; Z96.0 Presence of urogenital implants; Z98.51 Tubal ligation status; Z90.79 Acquired absence of other genital organ(s); Z90.710 Acquired absence of both cervix and uterus; Z98.890 Other specified postprocedural states; Z82.49 Family history of ischemic heart disease and other diseases of the circulatory system; Z84.1 Family history of disorders of kidney and ureter; Z91.048 Other nonmedicinal substance allergy status; Z88.8 Allergy status to other drugs, medicaments and biological substances

== ENCOUNTER 2018-10-10 19:51 | Inpatient (IN) ==
[2018-10-10 20:38] LABS: Basophils # (auto) 0.03 K/uL (0-0.2); Basophils % (auto) 0.3 %; Eosinophils # (auto) 0.31 K/uL (0-0.5); Eosinophils % (auto) 3.2 %; Hemoglobin 14.3 g/dL (12.0-16.0); Immature Granulocytes # (auto) 0.02 K/uL (0.00-0.02); Immature Granulocytes % (auto) 0.2 %; Lymphocytes % (auto) 30.1 %; Mean Corpuscular Volume 85.7 fL (80-100); Mean Platelet Volume 9.6 fL (7.4-10.4); Monocytes # (auto) 0.66 K/uL (0.11-0.59); Monocytes % (auto) 6.9 %; Neutrophils % (auto) 59.3 %; Platelet Count 277 K/uL (130-400); RDW Coefficient of Variation 12.9 % (11.5-14.5); RDW Standard Deviation 40.6 fL (36.4-46.3); White Blood Count 9.62 K/uL (4.8-10.8)
[2018-10-10 20:45] LABS: Appearance Urine Cloudy (Clear); Bacteria Urine Automated 1+ (Negative); Bilirubin Urine Negative (Negative); Color Urine Yellow; Epithelial Cell Urine Auto >30 /lpf (0-5); Glucose Urine UA Negative (Negative); Ketones Urine Trace (Negative); Leukocyte Esterase Urine Negative (Negative); Nitrite Urine Negative (Negative); Protein Urine Negative (Negative); Specific Gravity Urine 1.028 (1.000-1.030); Urobilinogen Urine Negative (Negative)
[2018-10-10 20:57] LABS: Alanine Aminotransferase 19 U/L (12-78); Albumin Level 3.4 gm/dl (3.4-5.0); Aspartate Aminotransferase 15 U/L (15-37); BUN Creatinine Ratio 10.2 (10-20); Blood Urea Nitrogen 9 mg/dl (7-18); Calcium 8.7 mg/dl (8.5-10.1); Carbon Dioxide 28 mmol/L (21-32); Chloride 104 mmol/L (98-107); Est GFR (Non-African American) 84.6; Glucose 82 mg/dl (70-99); Potassium 3.6 mmol/L (3.5-5.1); Sodium 137 mmol/L (136-145)
[2018-10-10 20:59] LABS: Cast Urine Automated 0 /lpf (0-5)
[2018-10-10 21:07] LABS: Albumin Globulin Ratio 0.8 (0.9-2); Alkaline Phosphatase 115 U/L (45-117); Bilirubin,Total 0.2 mg/dl (0.2-1); Globulin 4.1 gm/dl (2.5-4.0); Total Protein 7.5 gm/dl (6.4-8.2)
[2018-10-10 21:09] LABS: Amphetamines+Metham, Urine Neg (Neg); Barbiturates, Urine Neg (Neg); Benzodiazepine, Urine Neg (Neg); Cocaine, Urine Neg (Neg); MDMA (Ecstacy), Urine Neg (Neg); Methadone, Urine Neg (Neg); Opiate, Urine Neg (Neg); Phencyclidine, Urine Neg (Neg)
[2018-10-10 21:17] LABS: Acetaminophen < 2 ug/ml (10-30); Salicylate 3.7 mg/dl (2.8-20)
[2018-10-10] MEDS ORDERED: LORazepam 1 MG TAB SL STA (21:40)
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
[2018-10-10] MEDS ORDERED: SODIUM CHLORIDE 0.65% NA SOLN 45 ML (OCEAN) PRN (23:43)
[2018-10-10] MEDS ORDERED: MAGNESIUM HYDROXIDE SUSP 30 ML UDC PO PRN (23:43)
[2018-10-10] MEDS ORDERED: BISMUTH SUBSALICYLATE PER ML OMNICELL CHARGE PO PRN (23:43)
[2018-10-10] MEDS ORDERED: NICOTINE POLACRILEX 2 MG GUM MT PRN (23:43)
[2018-10-10] MEDS ORDERED: ALUMINUM/MAGNESIUM SUSP 30 ML UDC PO PRN (23:43)
[2018-10-10] MEDS ORDERED: ACETAMINOPHEN 325 MG TAB PO PRN (23:43)
[2018-10-11] MEDS: NICOTINE 14 MG/24 HR PATCH TD SCH (08:51)
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
[2018-10-11] MEDS: lamoTRIgine 25 MG TAB PO SCH ×2 (10:17→20:56)
[2018-10-11] MEDS: PRAZOSIN HCL 1 MG CAP PO SCH (20:56)
[2018-10-11] MEDS ORDERED: QUETIAPINE FUMARATE 150 MG TABCR PO SCH (22:00)
[2018-10-11] MEDS ORDERED: NON-FORMULARY PATIENT'S OWN MED SCH (22:00)
[2018-10-12] MEDS: NICOTINE 14 MG/24 HR PATCH TD SCH (08:56)
[2018-10-12] MEDS: lamoTRIgine 25 MG TAB PO SCH ×2 (08:56→20:59)
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
[2018-10-12] MEDS: PRAZOSIN HCL 1 MG CAP PO SCH (20:56)
[2018-10-12] MEDS ORDERED: QUETIAPINE FUMARATE 300 MG TABLET PO SCH (22:00)
[2018-10-13] MEDS: NICOTINE 14 MG/24 HR PATCH TD SCH (09:27)
[2018-10-13] MEDS: lamoTRIgine 25 MG TAB PO SCH ×2 (09:27→21:43)
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
[2018-10-13] MEDS: QUETIAPINE FUMARATE 300 MG TABLET PO SCH (19:32)
[2018-10-13] MEDS: PRAZOSIN HCL 1 MG CAP PO SCH (21:43)
[2018-10-14] MEDS: NICOTINE 14 MG/24 HR PATCH TD SCH (08:48)
[2018-10-14] MEDS: lamoTRIgine 25 MG TAB PO SCH ×2 (08:48→21:22)
[2018-10-14] MEDS ORDERED: QUETIAPINE FUMARATE 25 MG TABLET PO STA (11:59)
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
[2018-10-14] MEDS: QUETIAPINE FUMARATE 300 MG TABLET PO SCH (19:31)
[2018-10-14] MEDS: PRAZOSIN HCL 1 MG CAP PO SCH (21:22)
[2018-10-15] MEDS: lamoTRIgine 25 MG TAB PO SCH ×2 (08:08→21:10)
[2018-10-15] MEDS: NICOTINE 14 MG/24 HR PATCH TD SCH (08:09)
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
[2018-10-15] MEDS: QUETIAPINE FUMARATE 300 MG TABLET PO SCH (19:12)
[2018-10-15] MEDS: PRAZOSIN HCL 1 MG CAP PO SCH (21:11)
[2018-10-16] MEDS: NICOTINE 14 MG/24 HR PATCH TD SCH (08:29)
[2018-10-16] MEDS: lamoTRIgine 25 MG TAB PO SCH (08:29)
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
== END 2018-10-16 13:10 | disposition home or self-care (01) | DRG 885 ==
LOC: ED 19:51 → 3S 23:43 → SUATTDRO 23:43 → 3S 10-11 00:28

== ENCOUNTER 2019-04-12 17:04 | Inpatient (IN) ==
[2019-04-12] MEDS ORDERED: ALBUTEROL 0.083% NEBU SOLN 3 ML VIAL NEB STA (18:15)
[2019-04-12] MEDS ORDERED: SODIUM CHLORIDE 0.9% 500 ML IV SCH (18:15)
[2019-04-12] MEDS ORDERED: SODIUM CHLORIDE 0.9% 1000ML 2,000 ML IV ONE (18:15)
[2019-04-12] MEDS ORDERED: KETOROLAC TROMETHAMINE 15 MG/ML VIAL IV ONE (18:15)
[2019-04-12 19:00] LABS: Basophils # (auto) 0.01 K/uL (0-0.2); Basophils % (auto) 0.1 %; Hemoglobin 15.5 g/dL (12.0-16.0); Immature Granulocytes # (auto) 0.04 K/uL (0.00-0.02); Immature Granulocytes % (auto) 0.3 %; Lymphocytes % (auto) 4.3 %; Mean Corpuscular Hgb Conc 33.7 g/dL (32-36); Mean Platelet Volume 9.8 fL (7.4-10.4); Monocytes # (auto) 0.05 K/uL (0.11-0.59); Monocytes % (auto) 0.4 %; Neutrophils # (auto) 10.98 K/uL (1.4-6.5); Neutrophils % (auto) 94.9 %; Platelet Count 334 K/uL (130-400); RDW Coefficient of Variation 13.6 % (11.5-14.5); RDW Standard Deviation 41.9 fL (36.4-46.3); Red Blood Count 5.41 M/uL (4.2-5.4); White Blood Count 11.58 K/uL (4.8-10.8)
[2019-04-12 19:14] LABS: Alanine Aminotransferase 21 U/L (12-78); Albumin Level 3.8 gm/dl (3.4-5.0); Aspartate Aminotransferase 17 U/L (15-37); BUN Creatinine Ratio 10.1 (10-20); Blood Urea Nitrogen 10 mg/dl (7-18); Calcium 9.8 mg/dl (8.5-10.1); Carbon Dioxide 25 mmol/L (21-32); Chloride 107 mmol/L (98-107); Creatinine Clr Calc Pharmacy 95.2 ml/min; Est GFR (African American) 86.6; Est GFR (Non-African American) 74.7; Glucose 125 mg/dl (70-99); Potassium 3.7 mmol/L (3.5-5.1); Sodium 141 mmol/L (136-145)
[2019-04-12 19:19] LABS: Albumin Globulin Ratio 0.8 (0.9-2); Alkaline Phosphatase 133 U/L (45-117); Bilirubin,Total 0.3 mg/dl (0.2-1); Total Protein 8.8 gm/dl (6.4-8.2); Troponin I < 0.015 ng/ml (0-0.045)
[2019-04-12 19:21] LABS: Partial Thromboplastin Time 27.8 Seconds (21.0-31.0); Prothrombin Time 10.3 Seconds (9.0-12.0)
[2019-04-12 19:41] LABS: Influenza A virus by PCR Neg for Influ A (Neg); Influenza B virus by PCR Neg for Influ B (Neg)
[2019-04-12] MEDS ORDERED: cefTRIAXone SODIUM 1,000 MG/50 ML BAG IV STA (20:03)
[2019-04-12 20:16] LABS: Appearance Urine Cloudy (Clear); Bacteria Urine Automated Negative (Negative); Bilirubin Urine Negative (Negative); Blood Urine Negative (Negative); Color Urine Yellow; Epithelial Cell Urine Auto >30 /lpf (0-5); Glucose Urine UA Negative (Negative); Ketones Urine 1+ (Negative); Leukocyte Esterase Urine Negative (Negative); Nitrite Urine Negative (Negative); Protein Urine Negative (Negative); Specific Gravity Urine 1.021 (1.000-1.030); Urobilinogen Urine Negative (Negative)
--- NOTE | 2019-04-12 20:30 | XRay Report ---
TWO VIEW CHEST CLINICAL HISTORY: Cough. FINDINGS: PA and lateral chest radiographs are compared to study dated 04/08/2019 and correlated with c hest CT dated 04/07/2019. The cardiomediastinal silhouette is unremarkable. Mild patchy consolidation i s seen at the left lung base. No pleural effusion or pneumothorax is identified. The right lung appea rs clear. The bony thorax appears intact. IMPRESSION: There is mild patchy airspace consolidation at the left lung base, which has modestly inc reased from recent prior studies. Radiographic follow-up to resolution is recommended. Electronically signed by: Alejandro Saeed M.D. 04/12/2019 8:29 PM
[2019-04-12 20:38] LABS: Cast Urine Automated 0 /lpf (0-5); Mucus Urine Present (None Prsent); RBC Urine Automated 0-4 /hpf (0-4)
[2019-04-12] MEDS ORDERED: LACTATED RINGER'S 1,000 ML IV ONE (21:39)
[2019-04-12] MEDS ORDERED: POTASSIUM CHLORIDE 20 MEQ TABCR PO STA (21:39)
[2019-04-12 21:53] LABS: Magnesium 2.1 mg/dl (1.8-2.4)
[2019-04-12] MEDS ORDERED: DOXYCYCLINE HYCLATE 100 MG in DEXTROSE 5% 100 ML IV STA (22:31)
--- NOTE | 2019-04-12 22:31 | History & Physical Report ---
Date of Service April 12, 2019 Assessment & Plan (1) Sepsis: Secondary to community acquired pneumonia Failed outpatient tx mood/anxiety disorder, at baseline ongoing tobacco abuse GMF Cultures, IV ceftriaxone, Doxycycline IVF nicotine patch PRN DVT prophylaxis Lovenox subcu Full code. History of Present Illness Chief Complaint: Worsening cough, shortness of breath Primary Care Provider: Tanesha Odonnell DO History obtained from patient and records. Medical history significant for mood disorder, anxiety disorder, gastroparesis, ongoing tobacco abuse. Last week patient seen at the ER for cough symptoms initially dry later junky fever, chills, shortness of breath. Denies aspiration. Patient seen at the ER last week. CT chest negative for pulmonary embolus. Small focal area of consolidation base of the right lower lobe, and base of left lower lobe. Patient prescribed Azithromycin and Augmentin and cough syrup. Patient unable to comply with Augmentin due to tablet size. Patient return to the ER the following day because of worsening symptoms and dizziness. Patient discharged from the ER with unremarkable work-up. Tonight patient return to the ER with worsening cough symptoms, fever 101.5. Patient received IV ceftriaxone at the ER for pneumonia. 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 Allergies Allergy/AdvReac Type Severity Reaction Status Date / Time topiramate Allergy Unknown Hypotension Verified 04/12/19 18:11 /Syncope prednisone AdvReac Intermediate PSYCOTIC Verified 04/12/19 18:11 propranolol AdvReac Intermediate Hypotension Verified 04/12/19 18:11 /Syncope/Di zziness metoclopramide AdvReac Mild makes me Verified 04/12/19 18:11 feel "like i am on speed" Home Medications Home Medications Medication Instructions Recorded Confirmed Type ibuprofen 600 mg PO Q6H PRN 06/14/18 04/12/19 History clonazepam 0.5 mg PO DAILY PRN 01/26/19 04/12/19 History amoxicillin-pot clavulanate 1 tab PO BID #14 tab 04/07/19 04/12/19 Rx [Augmentin] hydrocodone-homatropine 5 ml PO Q8H PRN #45 ml 04/07/19 04/12/19 Rx [Hydrocodone Compound] lamotrigine 200 mg PO HS 04/08/19 04/12/19 History ondansetron 4 mg PO Q6H PRN 04/08/19 04/12/19 History quetiapine 25 mg PO TID PRN 04/08/19 04/12/19 History quetiapine 400 mg PO HS 04/08/19 04/12/19 History amoxicillin-pot clavulanate 10 ml PO BID 10 Days #200 ml 04/12/19 Rx Past Med/Surg History Medical History Bipolar II disorder Encounter for smoking cessation counseling (Acute) Endoscopic retrograde cholangiopancreatography (Resolved 02/22/13) Removal of ovarian cyst (Resolved 02/22/13) Cannabis abuse (Chronic 04/26/13) Acute anxiety (Chronic) Migraine (Chronic) SOB (shortness of breath) (Resolved 11/03/13) Syncope (Resolved) Carbon monoxide poisoning (Resolved 11/03/13) Chest pain (Resolved) Nausea (Resolved) Renal colic on left side (Resolved) Deliberate self-cutting (Chronic) Nausea, vomiting, and diarrhea (Resolved) Drug-seeking behavior (Acute) Marijuana use, continuous (Acute) Chronic pelvic pain in female Cluster B personality disorder Low back pain (Chronic) Nicotine abuse (Chronic) Obesity (BMI 30-39.9) (Chronic) PTSD (post-traumatic stress disorder) Bronchitis (Acute) Pneumonia (Acute) Bipolar disorder (Chronic) Medication refill (Inactive) Depression Surgical History S/P BSO (bilateral salpingo-oophorectomy) S/P laparoscopic hysterectomy Family History Other No pertinent family history Social History Preferred Language: Peruvian Communication Ability: Effective Visual Impairment: No Limitations Hearing Ability: Normal Data Base Design Analyst Required: No Beliefs That Will Affect Care: None marital status: Current Living Situation: Family current occupational status: employed Other Information That Helps Us Care for You: No Feels Safe at Home: Yes Smoking Status: Current some day smoker Tobacco Type: cigarettes Cigarettes Per Day: 10 ( hasnt smoked for 3 days due to illness) Do You Dip or Chew Tobacco: No Tobacco Cessation Education Requested by Patient: No (patient refused) Hx Alcohol Use: No Hx Substance Use: Yes substance use type: unknown Last Used Substance: Unknown Review of Systems Review of Systems: As per HPI, all 10 systems reviewed, all other ROS negative Physical Exam Physical Exam: GENERAL: Slightly anxious, obese , no respiratory distress SKIN: Normal color, warm HEENT: Bespectacled, pink palpebral conjunctivae, no ptosis, dry buccal mucosa NECK : Supple, short, no tenderness CHEST : Occasional expiratory wheeze , no tenderness HEART : Tachycardic, no obvious murmurs ABDOMEN: Some distention, nontender EXTREMITIES : Minimal LE swelling, no LE tenderness, no other conspicuous deformities noted NEUROLOGIC : Coherent, no facial asymmetry, no other gross focality Results & Data Vital Signs (Past 12 Hours) Vital Signs Temp Pulse Pulse Resp BP BP Pulse Ox 04/12/19 21:59 93 H 16 148/93 H 98 04/12/19 20:03 102 H 20 130/82 94 04/12/19 18:36 95 H 18 93 04/12/19 18:09 93 H 23 143/87 H 96 04/12/19 17:09 36.6 C 113 H 20 144/95 H 96 04/12/19 17:05 96 Laboratory Results Laboratory Results WBC 11.58 K/uL (4.8-10.8) H 04/12/19 18:25 RBC 5.41 M/uL (4.2-5.4) H 04/12/19 18:25 Hgb 15.5 g/dL (12.0-16.0) 04/12/19 18:25 Hct 46.0 % (37-47) 04/12/19 18:25 MCV 85.0 fL (80-100) 04/12/19 18:25 MCH 28.7 pg (25-34) 04/12/19 18:25 MCHC 33.7 g/dL (32-36) 04/12/19 18:25 RDW Std Deviation 41.9 fL (36.4-46.3) 04/12/19 18:25 RDW Coeff of Pérez 13.6 % (11.5-14.5) 04/12/19 18:25 Plt Count 334 K/uL (130-400) 04/12/19 18:25 MPV 9.8 fL (7.4-10.4) 04/12/19 18:25 Immature Gran % (Auto) 0.3 % 04/12/19 18:25 Neut % (Auto) 94.9 % 04/12/19 18:25 Lymph % (Auto) 4.3 % 04/12/19 18:25 Johnston % (Auto) 0.4 % 04/12/19 18:25 Eos % (Auto) 0.0 % 04/12/19 18:25 Baso % (Auto) 0.1 % 04/12/19 18:25 Immature Gran # (Auto) 0.04 K/uL (0.00-0.02) H 04/12/19 18:25 Neut # (Auto) 10.98 K/uL (1.4-6.5) H 04/12/19 18:25 Lymph # (Auto) 0.50 K/uL (1.2-3.4) L 04/12/19 18:25 Johnston # (Auto) 0.05 K/uL (0.11-0.59) L 04/12/19 18:25 Eos # (Auto) 0.00 K/uL (0-0.5) 04/12/19 18:25 Baso # (Auto) 0.01 K/uL (0-0.2) 04/12/19 18:25 PT 10.3 Seconds (9.0-12.0) 04/12/19 18:25 INR 1.0 (0.9-1.1) 04/12/19 18:25 APTT 27.8 Seconds (21.0-31.0) 04/12/19 18:25 PTT Ratio 1.0 04/12/19 18:25 Sodium 141 mmol/L (136-145) 04/12/19 18:25 Potassium 3.7 mmol/L (3.5-5.1) 04/12/19 18:25 Chloride 107 mmol/L (98-107) 04/12/19 18:25 Carbon Dioxide 25 mmol/L (21-32) 04/12/19 18:25 Anion Gap 9.0 (3-11) 04/12/19 18:25 BUN 10 mg/dl (7-18) 04/12/19 18:25 Creatinine 0.98 mg/dl (0.6-1.2) 04/12/19 18:25 Est Cr Clr Drug Dosing 95.2 ml/min 04/12/19 18:25 Est GFR ( Amer) 86.6 04/12/19 18:25 Est GFR (Non-Af Amer) 74.7 04/12/19 18:25 BUN/Creatinine Ratio 10.1 (10-20) 04/12/19 18:25 Glucose 125 mg/dl (70-99) H 04/12/19 18:25 Calcium 9.8 mg/dl (8.5-10.1) 04/12/19 18:25 Magnesium 2.1 mg/dl (1.8-2.4) 04/12/19 18:25 Total Bilirubin 0.3 mg/dl (0.2-1) 04/12/19 18:25 AST 17 U/L (15-37) 04/12/19 18:25 ALT 21 U/L (12-78) 04/12/19 18:25 Alkaline Phosphatase 133 U/L (45-117) H 04/12/19 18:25 Troponin I < 0.015 ng/ml (0-0.045) 04/12/19 18:25 Total Protein 8.8 gm/dl (6.4-8.2) H 04/12/19 18:25 Albumin 3.8 gm/dl (3.4-5.0) 04/12/19 18:25 Globulin 5.0 gm/dl (2.5-4.0) H 04/12/19 18:25 Albumin/Globulin Ratio 0.8 (0.9-2) L 04/12/19 18:25 Urine Color Yellow 04/12/19 20:00 Urine Appearance Cloudy (Clear) A 04/12/19 20:00 Urine pH 6.0 (4.5-7.5) 04/12/19 20:00 Ur Specific [place] 1.021 (1.000-1.030) 04/12/19 20:00 Urine Protein Negative (Negative) 04/12/19 20:00 Urine Glucose (UA) Negative (Negative) 04/12/19 20:00 Urine Ketones 1+ (Negative) H 04/12/19 20:00 Urine Blood Negative (Negative) 04/12/19 20:00 Urine Nitrite Negative (Negative) 04/12/19 20:00 Urine Bilirubin Negative (Negative) 04/12/19 20:00 Urine Urobilinogen Negative (Negative) 04/12/19 20:00 Ur Leukocyte Esterase Negative (Negative) 04/12/19 20:00 Urine WBC (Auto) 1-5 /hpf (0-5) 04/12/19 20:00 Urine RBC (Auto) 0-4 /hpf (0-4) 04/12/19 20:00 U Hyaline Cast (Auto) 0 /lpf (0-5) 04/12/19 20:00 U Epithel Cells (Auto) >30 /lpf (0-5) H 04/12/19 20:00 Urine Bacteria (Auto) Negative (Negative) 04/12/19 20:00 Urine Mucus Present (None Prsent) A 04/12/19 20:00 Urine Yeast Not Reportable 04/12/19 20:00 Influenza Type A (PCR) Neg for Influ A (Neg) 04/12/19 18:20 Influenza Type B (PCR) Neg for Influ B (Neg) 04/12/19 18:20 Diagnostic Findings Chest x-ray showed Mild patchy airspace consolidation at the left lung base, which has modestly increased from recent prior studies. Radiographic follow-up to resolution is recommended. EKG as per my interpretation : Rate 95, NSR, LAD, LAFB, T wave flattening inferior, anteroseptal leads, low voltage
[2019-04-12] MEDS ORDERED: clonazePAM 0.5 MG TAB PO PRN (23:45)
[2019-04-12] MEDS ORDERED: IPRATROPIUM BROMIDE NEB SOLN 0.02% 2.5 ML VIAL INH PRN (23:45)
[2019-04-12] MEDS ORDERED: IBUPROFEN 200 MG TAB PO PRN (23:45)
[2019-04-12] MEDS ORDERED: ACETAMINOPHEN 325 MG TAB PO PRN (23:45)
[2019-04-12] MEDS ORDERED: XOPENEX/ATROVENT 1.25mg/0.5MG NEB COMBO NEB PRN (23:45)
[2019-04-12] MEDS ORDERED: LEVALBUTEROL 1.25MG/0.5ML NEB INH PRN (23:45)
[2019-04-12] MEDS ORDERED: PROMETHAZINE HCL 12.5 MG in SODIUM CHLORIDE 0.9% 50 ML IV PRN (23:45)
[2019-04-13] MEDS ORDERED: LACTATED RINGER'S 1,000 ML IV ONE
[2019-04-13] MEDS: QUETIAPINE FUMARATE 200 MG TAB PO SCH ×2 (00:38→20:05)
[2019-04-13] MEDS: lamoTRIgine 100 MG TAB PO SCH ×2 (00:38→20:05)
[2019-04-13] MEDS: guaiFENesin SUGAR FREE 200 MG/10 ML UDC PO PRN ×3 (00:39→21:41)
--- NOTE | 2019-04-13 00:49 | Emergency Department Note ---
Entered by Tera Vasques acting as a scribe for History of Present Illness General Chief complaint: Respiratory Distress Stated complaint: DIZZY, BREATHING TROUBLE, NAUSEA, PNEUMONIA Source: patient Limitations: no limitations History of Present Illness Onset (ago): week(s) 1 Location: chest Pain Consistency: + constant Maximum Pain Intensity: 8 Quality: + constant Associated symptoms: + cough and + shortness of breath; no fever/chills Treatments prior to arrival: other (Azithromycin) The patient is a 34 white female w/ PMHx PTSD, Bipolar disorder, who presents to the ED w/ CC of constant SOB beginning a week ago. The patient states her symptoms started a week ago when her lungs hurt. She states she was coughing and was bringing up sputum. She notes she had SOB. She states she took NyQuil and the congestion stopped. She notes she was in the ED and was told to take Azithromycin and Augmentin. She states she was unable to take the Augmentin because she could not swallow it. She states she went to her PCP today and her PCP told her to come to the ED. She denies fevers and having any other medical problems. She notes the last time she smoked was 4 days ago. She states she has a prescription for marijuana but states she has not done that in a week. She states she takes Lamictal and Seroquel. Home Medications Home Medications Medication Instructions Recorded Confirmed Type ibuprofen 600 mg PO Q6H PRN 06/14/18 04/12/19 History clonazepam 0.5 mg PO DAILY PRN 01/26/19 04/12/19 History amoxicillin-pot clavulanate 1 tab PO BID #14 tab 04/07/19 04/12/19 Rx [Augmentin] hydrocodone-homatropine 5 ml PO Q8H PRN #45 ml 04/07/19 04/12/19 Rx [Hydrocodone Compound] lamotrigine 200 mg PO HS 04/08/19 04/12/19 History ondansetron 4 mg PO Q6H PRN 04/08/19 04/12/19 History quetiapine 25 mg PO TID PRN 04/08/19 04/12/19 History quetiapine 400 mg PO HS 04/08/19 04/12/19 History amoxicillin-pot clavulanate 10 ml PO BID 10 Days #200 ml 04/12/19 Rx Allergies Allergy/AdvReac Type Severity Reaction Status Date / Time topiramate Allergy Unknown Hypotension Verified 04/12/19 18:11 /Syncope prednisone AdvReac Intermediate PSYCOTIC Verified 04/12/19 18:11 propranolol AdvReac Intermediate Hypotension Verified 04/12/19 18:11 /Syncope/Di zziness metoclopramide AdvReac Mild makes me Verified 04/12/19 18:11 feel "like i am on speed" Past Med/Surg History Medical History Bipolar II disorder Encounter for smoking cessation counseling (Acute) Endoscopic retrograde cholangiopancreatography (Resolved 02/22/13) Removal of ovarian cyst (Resolved 02/22/13) Cannabis abuse (Chronic 04/26/13) Acute anxiety (Chronic) Migraine (Chronic) SOB (shortness of breath) (Resolved 11/03/13) Syncope (Resolved) Carbon monoxide poisoning (Resolved 11/03/13) Chest pain (Resolved) Nausea (Resolved) Renal colic on left side (Resolved) Deliberate self-cutting (Chronic) Nausea, vomiting, and diarrhea (Resolved) Drug-seeking behavior (Acute) Marijuana use, continuous (Acute) Chronic pelvic pain in female Cluster B personality disorder Low back pain (Chronic) Nicotine abuse (Chronic) Obesity (BMI 30-39.9) (Chronic) PTSD (post-traumatic stress disorder) Bronchitis (Acute) Pneumonia (Acute) Bipolar disorder (Chronic) Medication refill (Inactive) Depression Surgical History S/P BSO (bilateral salpingo-oophorectomy) S/P laparoscopic hysterectomy Family History Other No pertinent family history Social History Preferred Language: [place] Communication Ability: Effective Visual Impairment: No Limitations Hearing Ability: Normal Beliefs That Will Affect Care: None marital status: current occupational status: employed Feels Safe at Home: Yes Smoking Status: Current every day smoker Tobacco Type: cigarettes Hx Substance Use: Yes substance use type: marijuana Review of Systems See HPI for pertinent positives & negatives. and A total of 10 systems reviewed and were otherwise negative Physical Exam Vital Signs Vital Signs - 24 hr 04/12/19 17:05 04/12/19 17:09 04/12/19 18:09 Temperature 36.6 C Temperature Source Oral Sepsis Recent Fever Within 48 Hours No Sepsis Action Taken by Nursing No Action Required Pulse Rate 113 H Pulse Rate [Apical] 93 H Pulse Rhythm [Apical] Pulse Strength [Apical] Respiratory Rate 20 23 Respiratory Effort / Characteristics Non-Labored Spontaneous Non-Labored SOB on Exertion Respiratory Depth Normal Normal Normal Respiratory Pattern Regular Regular Blood Pressure 144/95 H Blood Pressure [Right Arm] 143/87 H Blood Pressure Mean 111 Blood Pressure Mean [Right Arm] 105 Blood Pressure Position Lying Blood Pressure Position [Right Arm] Sitting Pulse Oximetry 96 96 96 Oxygen Delivery Method Room Air Room Air Room Air 04/12/19 18:36 04/12/19 20:03 04/12/19 21:59 Temperature Temperature Source Sepsis Recent Fever Within 48 Hours Sepsis Action Taken by Nursing Pulse Rate Pulse Rate [Apical] 95 H 102 H 93 H Pulse Rhythm [Apical] Regular Regular Pulse Strength [Apical] Normal Normal Respiratory Rate 18 20 16 Respiratory Effort / Characteristics Spontaneous Non-Labored Spontaneous Non-Labored Spontaneous Respiratory Depth Normal Normal Respiratory Pattern Blood Pressure Blood Pressure [Right Arm] 130/82 148/93 H Blood Pressure Mean Blood Pressure Mean [Right Arm] 98 111 Blood Pressure Position Blood Pressure Position [Right Arm] Sitting Lying Pulse Oximetry 93 94 98 Oxygen Delivery Method Room Air Room Air Room Air GENERAL: alert, well nourished, non-toxic. Sitting up in bed. Persistent dry cough. Wearing bandana and eye glasses. EYE EXAM: normal conjunctiva OROPHARYNX: no exudate, no erythema, lips, buccal mucosa, and tongue normal and mucous membranes are moist NECK: supple, no nuchal rigidity, no adenopathy, non-tender LUNGS: Normal chest wall mechanics. Diffuse wheezing. HEART: no murmurs, S1 normal and S2 normal ABDOMEN: abdomen soft, non-tender, normo-active bowel sounds, no masses, no rebound or guarding. BACK: Back is symmetrical on inspection and there is no deformity, no midline tenderness, no CVA tenderness. SKIN: no rashes and no bruising UPPER EXTREMITIES: upper extremities are grossly normal. LOWER EXTREMITIES: No pitting edema. Calves equal bilaterally. NEURO EXAM: Normal sensorium, cranial nerves II-XII grossly intact, normal speech, no gross weakness of arms, no gross weakness of legs. Course ED COURSE: Vital signs were reviewed and showed tachycardia. The patients medical record was reviewed. The patient was seen at the ED on April 06 and . She had a chest CTA which showed pneumonitis and no PEs. The above diagnostic studies were performed and reviewed. ED treatments and interventions as stated above. 1807: The patient was evaluated in room B7. A complete history and physical examination was performed. 1942: I reevaluated the patient. I updated the patient on her findings. She feels a little better. 2127: Upon reevaluation, the patient is feeling a little better. I discussed my findings with the patient and she understands and agrees with the treatment plan. 2127: I discussed the patient's case with Dr. Leigh Medina Hospitalist. He will evaluate the patient for further management Based on the patients age, coexisting illnesses, exam and lab findings the decision to treat as an inpatient was made. The patient remained stable while under my care. The patient will be evaluated for further management. Administered Medications Guaifenesin (Robitussin Sugar Free) 200 mg PO Q6H PRN PRN Reason: Cough Stop: 05/12/19 23:44 Last Admin: 04/13/19 00:39 Dose: 200 mg Documented by: [id number] Lactated Ringer's (Lr) 1,000 mls @ 200 mls/hr IV .Q5H ONE Stop: 04/13/19 02:38 Last Admin: 04/12/19 21:50 Dose: 200 mls/hr Documented by: [id number] Lactated Ringer's (Lr) 1,000 mls @ 80 mls/hr IV .[id number] ONE Stop: 04/13/19 12:29 Last Admin: 04/13/19 00:00 Dose: 80 mls/hr Documented by: [id number] Lamotrigine (Lamictal) 200 mg PO HS MATTHEW Stop: 05/12/19 23:44 Last Admin: 04/13/19 00:38 Dose: 200 mg Documented by: [id number] Quetiapine Fumarate (Seroquel) 400 mg PO HS MATHTEW Stop: 05/12/19 23:44 Last Admin: 04/13/19 00:38 Dose: 400 mg Documented by: [id number] Discontinued Medications Albuterol (Ventolin 0.083% 2.5mg/3ml) 2.5 mg NEB NOW STA Stop: 04/12/19 18:16 Last Admin: 04/12/19 18:35 Dose: 2.5 mg Documented by: [id number] Sodium Chloride (Nss) 500 mls @ 999 mls/hr IV .Q31M MATTHEW Stop: 04/12/19 18:45 Last Infusion: 04/12/19 20:04 Dose: 0 mls/hr Documented by: [id number] Admin: 04/12/19 19:29 Dose: 999 mls/hr Documented by: [id number] Sodium Chloride (Nss 1000ml) 2,000 mls @ 999 mls/hr IV .Q2H1M ONE Stop: 04/12/19 20:15 Last Infusion: 04/12/19 21:06 Dose: 0 mls/hr Documented by: [id number] Admin: 04/12/19 19:01 Dose: 999 mls/hr Documented by: [id number] Ceftriaxone Sodium (Rocephin) 1,000 mg in 50 mls @ 100 mls/hr IV NOW STA Stop: 04/12/19 20:32 Last Infusion: 04/12/19 21:09 Dose: 0 mls/hr Documented by: [id number] Admin: 04/12/19 20:27 Dose: 100 mls/hr Documented by: [id number] Doxycycline Hyclate 100 mg/ (Dextrose) 110 mls @ 50 mls/hr IV NOW STA Stop: 04/13/19 00:42 Last Admin: 04/13/19 00:37 Dose: 50 mls/hr Documented by: [id number] Ketorolac Tromethamine (Toradol) 15 mg IV NOW ONE Stop: 04/12/19 18:16 Last Admin: 04/12/19 19:00 Dose: 15 mg Documented by: [id number] Potassium Chloride (Klor-Con M20) 40 meq PO NOW STA Stop: 04/12/19 21:40 Last Admin: 04/12/19 21:50 Dose: 40 meq Documented by: [id number] Medical Decision Making Differential Diagnosis Differential diagnoses includes but is not limited to pneumonia, bronchitis, COPD/Asthma exacerbation, pneumothorax, pulmonary embolism, congestive heart failure, acute coronary syndrome Medical Records Attestation: I reviewed the patient's medical records. Home Medications Current Medication List: was personally reviewed by me Laboratory Data Attestation: I reviewed the patient's lab results. Result diagrams: 04/12/19 18:25 04/12/19 18:25 Lab Results 04/12/19 04/12/19 04/12/19 Range/Units 18:20 18:25 18:25 WBC 11.58 H (4.8-10.8) K/uL RBC 5.41 H (4.2-5.4) M/uL Hgb 15.5 (12.0-16.0) g/dL Hct 46.0 (37-47) % MCV 85.0 (80-100) fL MCH 28.7 (25-34) pg MCHC 33.7 (32-36) g/dL RDW Std Deviation 41.9 (36.4-46.3) fL RDW Coeff of Pérez 13.6 (11.5-14.5) % Plt Count 334 (130-400) K/uL MPV 9.8 (7.4-10.4) fL Immature Gran % (Auto) 0.3 % Neut % (Auto) 94.9 % Lymph % (Auto) 4.3 % [place] % (Auto) 0.4 % Eos % (Auto) 0.0 % Baso % (Auto) 0.1 % Immature Gran # (Auto) 0.04 H (0.00-0.02) K/uL Neut # (Auto) 10.98 H (1.4-6.5) K/uL Lymph # (Auto) 0.50 L (1.2-3.4) K/uL [place] # (Auto) 0.05 L (0.11-0.59) K/uL Eos # (Auto) 0.00 (0-0.5) K/uL Baso # (Auto) 0.01 (0-0.2) K/uL PT 10.3 (9.0-12.0) Seconds INR 1.0 (0.9-1.1) APTT 27.8 (21.0-31.0) Seconds PTT Ratio 1.0 Sodium (136-145) mmol/L Potassium (3.5-5.1) mmol/L Chloride (98-107) mmol/L Carbon Dioxide (21-32) mmol/L Anion Gap (3-11) BUN (7-18) mg/dl Creatinine (0.6-1.2) mg/dl Est Cr Clr Drug Dosing ml/min Est GFR ( Amer) Est GFR (Non-Af Amer) BUN/Creatinine Ratio (10-20) Glucose (70-99) mg/dl Calcium (8.5-10.1) mg/dl Magnesium (1.8-2.4) mg/dl Total Bilirubin (0.2-1) mg/dl AST (15-37) U/L ALT (12-78) U/L Alkaline Phosphatase (45-117) U/L Troponin I (0-0.045) ng/ml Total Protein (6.4-8.2) gm/dl Albumin (3.4-5.0) gm/dl Globulin (2.5-4.0) gm/dl Albumin/Globulin Ratio (0.9-2) Urine Color Urine Appearance (Clear) Urine pH (4.5-7.5) Ur Specific Banks (1.000-1.030) Urine Protein (Negative) Urine Glucose (UA) (Negative) Urine Ketones (Negative) Urine Blood (Negative) Urine Nitrite (Negative) Urine Bilirubin (Negative) Urine Urobilinogen (Negative) Ur Leukocyte Esterase (Negative) Urine WBC (Auto) (0-5) /hpf Urine RBC (Auto) (0-4) /hpf U Hyaline Cast (Auto) (0-5) /lpf U Epithel Cells (Auto) (0-5) /lpf Urine Bacteria (Auto) (Negative) Urine Mucus (None Prsent) Urine Yeast Influenza Type A (PCR) Neg for Influ A (Neg) Influenza Type B (PCR) Neg for Influ B (Neg) 04/12/19 04/12/19 Range/Units 18:25 20:00 WBC (4.8-10.8) K/uL RBC (4.2-5.4) M/uL Hgb (12.0-16.0) g/dL Hct (37-47) % MCV (80-100) fL MCH (25-34) pg MCHC (32-36) g/dL RDW Std Deviation (36.4-46.3) fL RDW Coeff of Pérez (11.5-14.5) % Plt Count (130-400) K/uL MPV (7.4-10.4) fL Immature Gran % (Auto) % Neut % (Auto) % Lymph % (Auto) % [place] % (Auto) % Eos % (Auto) % Baso % (Auto) % Immature Gran # (Auto) (0.00-0.02) K/uL Neut # (Auto) (1.4-6.5) K/uL Lymph # (Auto) (1.2-3.4) K/uL [place] # (Auto) (0.11-0.59) K/uL Eos # (Auto) (0-0.5) K/uL Baso # (Auto) (0-0.2) K/uL PT (9.0-12.0) Seconds INR (0.9-1.1) APTT (21.0-31.0) Seconds PTT Ratio Sodium 141 (136-145) mmol/L Potassium 3.7 (3.5-5.1) mmol/L Chloride 107 (98-107) mmol/L Carbon Dioxide 25 (21-32) mmol/L Anion Gap 9.0 (3-11) BUN 10 (7-18) mg/dl Creatinine 0.98 (0.6-1.2) mg/dl Est Cr Clr Drug Dosing 95.2 ml/min Est GFR ( Amer) 86.6 Est GFR (Non-Af Amer) 74.7 BUN/Creatinine Ratio 10.1 (10-20) Glucose 125 H (70-99) mg/dl Calcium 9.8 (8.5-10.1) mg/dl Magnesium 2.1 (1.8-2.4) mg/dl Total Bilirubin 0.3 (0.2-1) mg/dl AST 17 (15-37) U/L ALT 21 (12-78) U/L Alkaline Phosphatase 133 H (45-117) U/L Troponin I < 0.015 (0-0.045) ng/ml Total Protein 8.8 H (6.4-8.2) gm/dl Albumin 3.8 (3.4-5.0) gm/dl Globulin 5.0 H (2.5-4.0) gm/dl Albumin/Globulin Ratio 0.8 L (0.9-2) Urine Color Yellow Urine Appearance Cloudy A (Clear) Urine pH 6.0 (4.5-7.5) Ur Specific [place] 1.021 (1.000-1.030) Urine Protein Negative (Negative) Urine Glucose (UA) Negative (Negative) Urine Ketones 1+ H (Negative) Urine Blood Negative (Negative) Urine Nitrite Negative (Negative) Urine Bilirubin Negative (Negative) Urine Urobilinogen Negative (Negative) Ur Leukocyte Esterase Negative (Negative) Urine WBC (Auto) 1-5 (0-5) /hpf Urine RBC (Auto) 0-4 (0-4) /hpf U Hyaline Cast (Auto) 0 (0-5) /lpf U Epithel Cells (Auto) >30 H (0-5) /lpf Urine Bacteria (Auto) Negative (Negative) Urine Mucus Present A (None Prsent) Urine Yeast Not Reportable Influenza Type A (PCR) (Neg) Influenza Type B (PCR) (Neg) Imaging Data Radiologist's Impression: Radiology results as stated below per my review and the radiologist's interpretation: TWO VIEW CHEST CLINICAL HISTORY: Cough. FINDINGS: PA and lateral chest radiographs are compared to study dated 04/08/2019 and correlated with chest CT dated 04/07/2019. The cardiomediastinal silhouette is unremarkable. Mild patchy consolidation is seen at the left lung base. No pleural effusion or pneumothorax is identified. The right lung appears clear. The bony thorax appears intact. IMPRESSION: There is mild patchy airspace consolidation at the left lung base, which has modestly increased from recent prior studies. Radiographic follow-up to resolution is recommended. Electronically signed by: Alejandro Saeed M.D. 04/12/2019 8:29 PM ECG Data Attestation: I personally reviewed and interpreted this ECG as follows: Indication: SOB/dyspnea Rate (beats per minute): 93 Rhythm: sinus rhythm Findings: + other (normal axis, poor baseline) Comparison ECG Date: from (04/07/19) Change: no significant change Blood Pressure Blood Pressure Findings: Elevated blood pressure Blood Pressure Disposition: further management by hospitalist MARIELA Cornejo Patient is a 34-year-old female who has been to the ER 3 times in the past 10 days for shortness of breath associate with cough. IV was established and blood work was obtained. Labs show mild leukocytosis of 11.5 thousand. INR is unremarkable. BMP along with LFTs bilirubin and troponin was unremarkable. Previous CT PE was reviewed by myself which showed mild bronchitis. UA was negative. Influenza was negative. Chest x-ray now shows a small infiltrate which was previously unable to be visualized. She has been on Zithromax symptoms are worsening and she was sent in by her PCP. She did not take her Augmentin due to the pill size. Patient was given IV fluids, IV antibiotics and neb treatments. She did have some mild improvement. She is updated bedside. Continue to remain mildly tachycardic with the worsening chest x-ray and symptoms and being sent back in by her PCP for third visit she was discussed with the hospitalist for observation. Impression & Plan Pneumonia, Cough, Breath shortness, Leukocytosis Discharge Plan Visit Data *Final* Discharge Date/Time: 04/12/19 23:04 Chief Complaint: Respiratory Distress Stated Complaint: DIZZY, BREATHING TROUBLE, NAUSEA, PNEUMONIA ED Provider: Zack Hall Discharge Problem: Pneumonia, Cough, Breath shortness, Leukocytosis Patient Disposition: Admitted As Inpatient Discharge Instructions Interventions: ED Discharge Assessment Last Done: 04/12/19 23:04 Discharge Problem: Pneumonia Qualifiers: Pneumonia type: due to unspecified organism Laterality: unspecified laterality Lung location: unspecified part of lung Qualified Code(s): J18.9 - Pneumonia, unspecified organism The scribe's documentation has been prepared under my direction and personally reviewed by me in its entirety. I confirm that the note above accurately reflects all work, treatment, procedures, and medical decision making performed by me.
[2019-04-13 06:22] LABS: Basophils # (auto) 0.01 K/uL (0-0.2); Basophils % (auto) 0.1 %; Hematocrit (blood only) 39.6 % (37-47); Hemoglobin 13.3 g/dL (12.0-16.0); Immature Granulocytes # (auto) 0.05 K/uL (0.00-0.02); Immature Granulocytes % (auto) 0.5 %; Lymphocytes # (auto) 0.95 K/uL (1.2-3.4); Lymphocytes % (auto) 8.7 %; Mean Corpuscular Hgb Conc 33.6 g/dL (32-36); Mean Corpuscular Volume 83.2 fL (80-100); Mean Platelet Volume 9.4 fL (7.4-10.4); Monocytes # (auto) 0.22 K/uL (0.11-0.59); Neutrophils # (auto) 9.67 K/uL (1.4-6.5); Neutrophils % (auto) 88.7 %; Platelet Count 303 K/uL (130-400); RDW Coefficient of Variation 13.5 % (11.5-14.5); RDW Standard Deviation 40.8 fL (36.4-46.3); Red Blood Count 4.76 M/uL (4.2-5.4)
[2019-04-13 07:08] LABS: Alanine Aminotransferase 16 U/L (12-78); Albumin Level 3.1 gm/dl (3.4-5.0); Alkaline Phosphatase 104 U/L (45-117); Aspartate Aminotransferase 12 U/L (15-37); BUN Creatinine Ratio 10.1 (10-20); Bilirubin Direct < 0.1 mg/dl (0-0.2); Bilirubin,Total 0.2 mg/dl (0.2-1); Blood Urea Nitrogen 7 mg/dl (7-18); Carbon Dioxide 22 mmol/L (21-32); Chloride 112 mmol/L (98-107); Creatinine Clr Calc Pharmacy 138.1 ml/min; Est GFR (African American) 131.3; Est GFR (Non-African American) 113.3; Glucose 128 mg/dl (70-99); Potassium 4.4 mmol/L (3.5-5.1); Sodium 141 mmol/L (136-145); Total Protein 7.2 gm/dl (6.4-8.2)
[2019-04-13 07:38] LABS: Estimated Average Glucose 111 mg/dl; Hemoglobin A1C 5.5 % (4.5-5.6)
[2019-04-13] MEDS: DOXYCYCLINE HYCLATE 100 MG CAP PO SCH ×2 (08:16→20:05)
[2019-04-13] MEDS: ENOXAPARIN INJ 40 MG/0.4 ML SYR SQ SCH (08:19)
[2019-04-13] MEDS ORDERED: ALBUT/IPRATROP 3MG/0.5MG NEB 3 ML VIAL NEB STA (10:13)
[2019-04-13] MEDS ORDERED: predniSONE 20 MG TAB PO STA (10:18)
--- NOTE | 2019-04-13 10:18 | Hospitalist Progress Note ---
Date of Service April 13, 2019 Assessment & Plan (1) CAP (community acquired pneumonia): Community acquire pneumonia Upper airway reactive disease Tobacco Use -04/12/19 PA and lateral chest radiographs are compared to study dated 04/08/2019 and correlated with chest CT dated 04/07/2019. The cardiomediastinal silhouette is unremarkable. Mild patchy consolidation is seen at the left lung base. No pleural effusion or pneumothorax is identified. The right lung appears clear. The bony thorax appears intact. -previously treated as outpatient for pneumonia with Doxycycline and patient reports maybe 4 days of outpatient antibiotic use and she did not take Augmentin because the pills were too big for her to swallow -my review of the 04/12/19 X rays hard to discern infiltrates -do not believe that patient has sepsis although this was considered on initial presentation by admitting hospitalist -possibly that patient has upper airway reactive disease secondary to initial pneumonia; history of tobacco use and recently started on albuterol inhalers -History of Tobacco use - will offer nicotine patch -blood cultures on 04/12/19 are pending -will send sputum culture -continue IV Ceftriaxone and IV Doxycycline -will start nebulizers q6 hours as scheduled, start prednisone for upper airway (patient had some problems reportedly with medrol packs in terms of agitation the past but willing to try prednisone in the hospital), however expect WBC to increase with steroids mood/anxiety disorder -mood stable -continue home dose clonazepam, quetiapine Obesity with BMI 46 -encourage ambulation in the hospital DVT ppx: Lovenox, encourage ambulation Subjective non toxic in appearance. awake and alert. speaking in full sentences. breathing on room air. some expiratory wheezes. blood pressure stable. heart rate regular. patient reports periodically of coughing but not coughing at time of exam. she is able to ambulate. no chest pain. no abdomen pain. no lightheadedness Physical Exam Constitutional: + obese and comfortable Eyes: PERRL, conjunctivae normal, anicteric sclerae EOM intact bilaterally ENMT: external ear and nose normal, oropharynx normal Neck: trachea midline, no thyromegaly Respiratory: expiratory wheezes (mild) Cardiovascular: RRR, no murmur, no edema Gastrointestinal (Abdomen): normal bowel sounds, soft, nontender, no hepatosplenomegaly Musculoskeletal: no cyanosis or clubbing, extremities motor strength 5/5 Head/Neck/Chest: normocephalic and head atraumatic Neurologic: PERRL, EOMI, accommodation nl, no face palsy, no dysarthria CN's II-XI intact bilaterally Psychiatric: A+Ox3, euthymic affect Results & Data Vital Signs (Past 12 Hours) Vital Signs Temp Pulse Resp BP Pulse Ox 04/13/19 08:35 36.7 C 84 129/81 93 04/13/19 01:09 36.5 C 90 115/75 96 04/12/19 23:03 89 16 126/74 94 (1) CAP (community acquired pneumonia) Laterality: unspecified laterality Qualified Code(s): J18.9 - Pneumonia, unspecified organism
[2019-04-13] MEDS: NICOTINE 7 MG/24 HR TDSY TD SCH (11:49)
[2019-04-13] MEDS: ALBUT/IPRATROP 3MG/0.5MG NEB 3 ML VIAL NEB SCH ×2 (14:05→19:22)
[2019-04-13] MEDS ORDERED: cefTRIAXone SODIUM 1,000 MG in DEXTROSE 5% 50 ML IV SCH (20:00)
[2019-04-13] MEDS ORDERED: cefTRIAXone SODIUM 2,000 MG in DEXTROSE 5% 50 ML IV SCH (20:00)
[2019-04-14] MEDS: ALBUT/IPRATROP 3MG/0.5MG NEB 3 ML VIAL NEB SCH ×2 (02:14→07:26)
[2019-04-14 05:55] LABS: Basophils # (auto) 0.02 K/uL (0-0.2); Basophils % (auto) 0.2 %; Eosinophils # (auto) 0.01 K/uL (0-0.5); Eosinophils % (auto) 0.1 %; Hematocrit (blood only) 36.8 % (37-47); Hemoglobin 12.1 g/dL (12.0-16.0); Immature Granulocytes # (auto) 0.07 K/uL (0.00-0.02); Immature Granulocytes % (auto) 0.6 %; Lymphocytes % (auto) 22.8 %; Mean Corpuscular Hgb Conc 32.9 g/dL (32-36); Mean Corpuscular Volume 84.4 fL (80-100); Mean Platelet Volume 9.5 fL (7.4-10.4); Monocytes # (auto) 0.65 K/uL (0.11-0.59); Monocytes % (auto) 5.7 %; Neutrophils # (auto) 8.07 K/uL (1.4-6.5); Neutrophils % (auto) 70.6 %; Platelet Count 289 K/uL (130-400); RDW Standard Deviation 42.8 fL (36.4-46.3); Red Blood Count 4.36 M/uL (4.2-5.4); White Blood Count 11.42 K/uL (4.8-10.8)
[2019-04-14 06:29] LABS: Alanine Aminotransferase 16 U/L (12-78); Aspartate Aminotransferase 8 U/L (15-37); BUN Creatinine Ratio 12.9 (10-20); Blood Urea Nitrogen 11 mg/dl (7-18); Calcium 8.6 mg/dl (8.5-10.1); Carbon Dioxide 25 mmol/L (21-32); Chloride 108 mmol/L (98-107); Creatinine Clr Calc Pharmacy 105.5 ml/min; Est GFR (African American) 97.3; Glucose 110 mg/dl (70-99); Potassium 3.7 mmol/L (3.5-5.1); Sodium 140 mmol/L (136-145)
[2019-04-14 06:31] LABS: Albumin Globulin Ratio 0.8 (0.9-2); Alkaline Phosphatase 91 U/L (45-117); Bilirubin,Total < 0.1 mg/dl (0.2-1); Globulin 3.6 gm/dl (2.5-4.0); Total Protein 6.6 gm/dl (6.4-8.2)
[2019-04-14] MEDS: ENOXAPARIN INJ 40 MG/0.4 ML SYR SQ SCH (08:10)
[2019-04-14] MEDS: NICOTINE 7 MG/24 HR TDSY TD SCH (08:10)
[2019-04-14] MEDS: DOXYCYCLINE HYCLATE 100 MG CAP PO SCH (08:12)
[2019-04-14] MEDS ORDERED: predniSONE 20 MG TAB PO SCH (09:00)
[2019-04-14] MEDS ORDERED: COUGH DROP (SUGAR FREE) LOZ 24 LOZ/1 BOX BUCCAL ONE (10:36)
[2019-04-14] MEDS ORDERED: ALBUTEROL 0.5% NEB SOLN 2.5 MG/0.5 ML VIAL NEB PRN (13:21)
--- NOTE | 2019-04-14 13:49 | Hospitalist Progress Note ---
Date of Service April 14, 2019 Assessment & Plan (1) CAP (community acquired pneumonia): Upper airway reactive disease Tobacco Use -04/12/19 PA and lateral chest radiographs are compared to study dated 04/08/2019 and correlated with chest CT dated 04/07/2019. The cardiomediastinal silhouette is unremarkable. Mild patchy consolidation is seen at the left lung base. No pleural effusion or pneumothorax is identified. The right lung appears clear. The bony thorax appears intact. -previously treated as outpatient for pneumonia with Doxycycline and patient reports maybe 4 days of outpatient antibiotic use and she did not take Augmentin because the pills were too big for her to swallow -my review of the 04/12/19 X rays hard to discern infiltrates -do not believe that patient has sepsis although this was considered on initial presentation by admitting hospitalist - admission blood cultures are negative -possibly that patient has upper airway reactive disease secondary to initial pneumonia; history of tobacco use and recently started on albuterol as outpatient -History of Tobacco use - offered nicotine patch -received steroids in the hospital and scheduled nebulizer treatments in the hospital with improvements of symptoms - less cough and less shortness of breath -no sputum expectorated fo culture -patient has been on room air throughout hospital stay -since the ED presentation patient started on IV Ceftriaxone and IV Doxycycline and was continued to 04/14/19 -04/14/19 Patient is discharged to home as per her request Patient should make follow up appointment with primary care doctor in 1 week Patient has nebulizer treatments at home. Would advise patient to continue albuterol nebulizers every 6 hours as needed for shortness of breath or wheezing. albuterol nebulizers prescribed Patient should take Doxycycline antibiotic twice a day for 7 more days. Patient should take cephalexin in place of Augmentin (amoxicillin-clavunlanate because of problems with swallowing the pill) 4 times a day for 7 days Patient may take prednisone 40 mg daily for 5 more days and then stop Patient should stop smoking. Nicotine patch prescribed medication sent electronically to sent electronically to [facility] Address: [address] [place] [id number] mood/anxiety disorder -mood stable -continue home dose clonazepam, quetiapine Obesity with BMI 46 -encouraged ambulation in the hospital -low fat diet DVT ppx: Lovenox, encourage ambulation Discharge Diagnosis Community acquire pneumonia; Upper airway reactive disease; Tobacco Use; other diagnosis of Obesity with BMI 46 Subjective Patient feeling less cough and breathing better. She requests to be discharge. No chest pain. no abdomen pain. she is ambulatory. she continues to be on room air. no headache. no dizziness no lightheadedness Physical Exam Constitutional: + obese and comfortable Eyes: PERRL, conjunctivae normal, anicteric sclerae EOM intact bilaterally ENMT: external ear and nose normal, oropharynx normal Neck: trachea midline, no thyromegaly Respiratory: normal respiratory effort, lungs clear to auscultation Cardiovascular: RRR, no murmur, no edema Gastrointestinal (Abdomen): normal bowel sounds, soft, nontender, no hepatosplenomegaly Musculoskeletal: no cyanosis or clubbing, extremities motor strength 5/5 Head/Neck/Chest: normocephalic and head atraumatic Neurologic: PERRL, EOMI, accommodation nl, no face palsy, no dysarthria CN's II-XI intact bilaterally Psychiatric: A+Ox3, euthymic affect Results & Data Vital Signs (Past 12 Hours) Vital Signs Temp Pulse Resp BP Pulse Ox 04/14/19 13:13 36.4 C L 104 H 20 125/77 94 04/14/19 08:00 36.4 C L 104 H 20 125/77 94 04/14/19 07:26 87 14 97 (1) CAP (community acquired pneumonia) Laterality: unspecified laterality Qualified Code(s): J18.9 - Pneumonia, unspecified organism
--- NOTE | 2019-04-14 13:58 | Discharge Summary ---
Date of Service April 14, 2019 Admission HPI Per Admitting Provider History obtained from patient and records. Medical history significant for mood disorder, anxiety disorder, gastroparesis, ongoing tobacco abuse. Last week patient seen at the ER for cough symptoms initially dry later junky fever, chills, shortness of breath. Denies aspiration. Patient seen at the ER last week. CT chest negative for pulmonary embolus. Small focal area of consolidation base of the right lower lobe, and base of left lower lobe. Patient prescribed Azithromycin and Augmentin and cough syrup. Patient unable to comply with Augmentin due to tablet size. Patient return to the ER the following day because of worsening symptoms and dizziness. Patient discharged from the ER with unremarkable work-up. Tonight patient return to the ER with worsening cough symptoms, fever 101.5. Patient received IV ceftriaxone at the ER for pneumonia. 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 Admission Exam Per Admitting Provider GENERAL: Slightly anxious, obese , no respiratory distress SKIN: Normal color, warm HEENT: Bespectacled, pink palpebral conjunctivae, no ptosis, dry buccal mucosa NECK : Supple, short, no tenderness CHEST : Occasional expiratory wheeze , no tenderness HEART : Tachycardic, no obvious murmurs ABDOMEN: Some distention, nontender EXTREMITIES : Minimal LE swelling, no LE tenderness, no other conspicuous deformities noted NEUROLOGIC : Coherent, no facial asymmetry, no other gross focality Principal Diagnosis Community acquire pneumonia; Upper airway reactive disease; Tobacco Use; other diagnosis of Obesity with BMI 46 Discharge Exam Constitutional + obese and comfortable Eyes PERRL, conjunctivae normal, anicteric sclerae EOM intact bilaterally ENMT external ear and nose normal, oropharynx normal Neck trachea midline, no thyromegaly Respiratory normal respiratory effort, lungs clear to auscultation Cardiovascular RRR, no murmur, no edema Gastrointestinal (Abdomen) normal bowel sounds, soft, nontender, no hepatosplenomegaly Musculoskeletal no cyanosis or clubbing, extremities motor strength 5/5 Head/Neck/Chest: normocephalic and head atraumatic Neurologic PERRL, EOMI, accommodation nl, no face palsy, no dysarthria CN's II-XI intact bilaterally Psychiatric A+Ox3, euthymic affect Discharge Data Allergies Allergy/AdvReac Type Severity Reaction Status Date / Time topiramate Allergy Unknown Hypotension Verified 04/12/19 18:11 /Syncope prednisone AdvReac Intermediate PSYCOTIC Verified 04/12/19 18:11 propranolol AdvReac Intermediate Hypotension Verified 04/12/19 18:11 /Syncope/Di zziness metoclopramide AdvReac Mild makes me Verified 04/12/19 18:11 feel "like i am on speed" Consultations 04/12/19 21:26 ED Decision to Admit Stat Hospital Course (1) CAP (community acquired pneumonia): Upper airway reactive disease Tobacco Use -04/12/19 PA and lateral chest radiographs are compared to study dated 04/08/2019 and correlated with chest CT dated 04/07/2019. The cardiomediastinal silhouette is unremarkable. Mild patchy consolidation is seen at the left lung base. No pleural effusion or pneumothorax is identified. The right lung appears clear. The bony thorax appears intact. -previously treated as outpatient for pneumonia with Doxycycline and patient reports maybe 4 days of outpatient antibiotic use and she did not take Augmentin because the pills were too big for her to swallow -my review of the 04/12/19 X rays hard to discern infiltrates -do not believe that patient has sepsis although this was considered on initial presentation by admitting hospitalist - admission blood cultures are negative -possibly that patient has upper airway reactive disease secondary to initial pneumonia; history of tobacco use and recently started on albuterol as outpatient -History of Tobacco use - offered nicotine patch -received steroids in the hospital and scheduled nebulizer treatments in the hospital with improvements of symptoms - less cough and less shortness of breath -no sputum expectorated fo culture -patient has been on room air throughout hospital stay -since the ED presentation patient started on IV Ceftriaxone and IV Doxycycline and was continued to 04/14/19 -04/14/19 Patient is discharged to home as per her request Patient should make follow up appointment with primary care doctor in 1 week Patient has nebulizer treatments at home. Would advise patient to continue albuterol nebulizers every 6 hours as needed for shortness of breath or wheezing. albuterol nebulizers prescribed Patient should take Doxycycline antibiotic twice a day for 7 more days. Patient should take cephalexin in place of Augmentin (amoxicillin-clavunlanate because of problems with swallowing the pill) 4 times a day for 7 days Patient may take prednisone 40 mg daily for 5 more days and then stop Patient should stop smoking. Nicotine patch prescribed medication sent electronically to sent electronically to [facility] Address: [place] [address] mood/anxiety disorder -mood stable -continue home dose clonazepam, quetiapine Obesity with BMI 46 -encouraged ambulation in the hospital -low fat diet DVT ppx: Lovenox, encourage ambulation Discharge Diagnosis Community acquire pneumonia; Upper airway reactive disease; Tobacco Use; other diagnosis of Obesity with BMI 46 Total Time Total Time Spent Total Time Spent (In Minutes): 40 minutes Total Time Includes: Examination of the Patient, Discharge Planning, Medication Reconciliation and Communication With Other Providers Discharge Plan Discharge Items Patient Disposition: Home - Self-Care Reason For Visit: SEPSIS Discharge Diagnosis: Community acquire pneumonia; Upper airway reactive disease; Tobacco Use; Condition: Good Discharge Goals: Improve function Activity: Resume your previous activity Non-emergency contact: Primary Care Provider Call non-emergency contact if: you have any medication questions Follow-up/Referrals: Tanesha Odonnell DO [Primary Care Provider] - Diet: Low Fiber Addtl Provider Instructions: Patient is discharged to home as per her request Patient should make follow up appointment with primary care doctor in 1 week Patient has nebulizer treatments at home. Would advise patient to continue albuterol nebulizers every 6 hours as needed for shortness of breath or wheezing. albuterol nebulizers prescribed Patient should take Doxycycline antibiotic twice a day for 7 more days. Patient should take cephalexin in place of Augmentin (amoxicillin-clavunlanate because of problems with swallowing the pill) 4 times a day for 7 days Patient may take prednisone 40 mg daily for 5 more days and then stop Patient should stop smoking. Nicotine patch prescribed medication sent electronically to sent electronically to [facility] Address: [place] [address] Prescriptions: New nicotine 7 mg/24 hr Patch 24 Hour 7 mg transdermal QAM 30 Days Qty: 30 RF: 0 doxycycline hyclate 100 mg Capsule 100 mg PO BID 7 Days Qty: 14 RF: 0 prednisone 20 mg Tablet 40 mg PO DAILY 5 Days Qty: 10 RF: 0 cephalexin 500 mg Capsule 500 mg PO QID 7 Days Qty: 28 RF: 0 albuterol sulfate 2.5 mg/0.5 mL Solution For Nebulization 2.5 mg NEB Q6R PRN (Reason: shortness of breath or wheezing) 25 Days Qty: 100 RF: 0 Continued hydrocodone-homatropine [Hydrocodone Compound] 5-1.5 mg/5 mL syrup 5 ml PO Q8H PRN (Reason: cough) Qty: 45 RF: 0 clonazepam 0.5 mg tablet 0.5 mg PO DAILY PRN (Reason: Anxiety) RF: 0 quetiapine 25 mg tablet 25 mg PO TID PRN (Reason: Anxiety) RF: 0 lamotrigine 200 mg tablet 200 mg PO HS RF: 0 quetiapine 400 mg tablet 400 mg PO HS RF: 0 ondansetron 4 mg tablet,disintegrating 4 mg PO Q6H PRN (Reason: Nausea And Vomiting) RF: 0 Discontinued ibuprofen 200 mg Tablet 600 mg PO Q6H PRN (Reason: Pain) RF: 0 amoxicillin-pot clavulanate [Augmentin] 875-125 mg tablet 1 tab PO BID Qty: 14 RF: 0 Stand-Alone Forms: [facility] Discharge Orders: Discharge Order (Routine); Ordered 04/14/19 Ordered By: Jayant Bauer Admission Data Admit Date/Time: 04/12/19 22:35 Attending Provider: Jayant Bauer Admit Provider: Franky Abraham Primary Care Provider: Tanesha Odonnell Other Providers: Franky Abraham Service: Medical Other Interventions: Discharge Summary Assessment (RN) Last Done: 04/14/19 13:13
[2019-04-14] MEDS ORDERED: cephALEXin 500 MG CAP PO SCH (17:00)
== END 2019-04-14 13:50 | disposition home or self-care (01) | DRG 194 ==
LOC: ED 17:04 → 4E 22:35

== ENCOUNTER 2023-01-31 12:29 | Inpatient (IN) ==
[2023-01-31] MEDS ORDERED: ALBUT/IPRATROP 3MG/0.5MG NEB 3 ML VIAL NEB STA ×3 (12:50→14:40)
--- NOTE | 2023-01-31 13:39 | XRay Report ---
SINGLE VIEW CHEST CLINICAL HISTORY: Cough FINDINGS: An AP, portable, upright chest radiograph is compared to study dated 06/16/2022. The cardiom ediastinal silhouette is unremarkable. The lungs and pleural spaces are clear. No pneumothorax is see n. The bony thorax is grossly intact. IMPRESSION: No active disease in the chest. ACT 112: Negative or not required by law. Electronically signed by: Alejandro Saeed M.D. 01/31/2023 1:38 PM
[2023-01-31 14:29] LABS: Influenza A virus by PCR Negative (Neg); Influenza B virus by PCR Negative (Neg); RSV by PCR Negative (Neg); SARS CoV2 RNA(COVID-19) Ceph NEGATIVE (Negative)
[2023-01-31] MEDS ORDERED: methylPREDNISolone 125 MG/2 ML VIAL IV STA (15:18)
[2023-01-31 16:23] LABS: Basophils # (auto) 0.07 K/uL (0-0.2); Basophils % (auto) 0.9 %; Eosinophils # (auto) 0.49 K/uL (0-0.50); Eosinophils % (auto) 6.6 %; Hematocrit (blood only) 47.3 % (37.0-47.0); Hemoglobin 15.4 g/dl (12.0-16.0); Immature Granulocytes # (auto) 0.01 K/uL (0.01-0.20); Immature Granulocytes % (auto) 0.1 %; Lymphocytes # (auto) 2.06 K/uL (1.2-3.4); Lymphocytes % (auto) 27.6 %; Mean Corpuscular Hemoglobin 27.9 pg (25.0-34.0); Mean Corpuscular Hgb Conc 32.6 g/dL (32.0-36.0); Mean Corpuscular Volume 85.8 fL (80.0-100.0); Mean Platelet Volume 10.5 fL (9.4-12.4); Monocytes # (auto) 0.63 K/uL (0.11-0.59); Monocytes % (auto) 8.4 %; Neutrophils # (auto) 4.21 K/uL (1.40-6.50); Neutrophils % (auto) 56.4 %; Platelet Count 264 K/uL (130-400); RDW Standard Deviation 40.6 fL (36.4-46.3); Red Blood Count 5.51 M/uL (4.20-5.40); White Blood Count 7.47 K/ul (4.8-10.8)
[2023-01-31] MEDS ORDERED: AZITHROMYCIN 250 MG TAB PO ONE (16:31)
[2023-01-31 16:35] LABS: BUN Creatinine Ratio 11.1 (10-20); Creatinine Clr Calc Pharmacy 112.6 ml/min; Est GFR (Non-African American) 91.5 ml/min; Potassium 3.8 mmol/L (3.5-5.1)
[2023-01-31 17:08] LABS: Base Excess VBG -0.7 mEq/L; HCO3 VBG 27 mmol/L; Oxygen Saturation VBG < 60.0 %; PCO2 VBG 56 mmHg (38-50); PO2 VBG 25 mmHg; pH VBG 7.29 (7.36-7.41)
--- NOTE | 2023-01-31 17:36 | History & Physical Report ---
Date of Service January 31, 2023 Assessment & Plan (1) Acute respiratory failure: (2) Asthma exacerbation with COPD (chronic obstructive pulmonary disease): (3) Tobacco use: Plan: Past medical history of exercise-induced asthma, ongoing tobacco abuse. Not on any inhalers. Presents with shortness of breath for 2 days. Oxygen saturation less than 90% in room air; tachypneic on presentation(RR >22) Labs personally reviewed; no leukocytosis. VBG reviewed; consistent with acute respiratory acidosis with pH of 7.29. COVID-19 negative, flu, RSV negative. Chest x-ray viewed and reviewed; no infiltrates present. EKG personally reviewed; normal sinus rhythm; possible left atrial enlargement. QTc 450. Plan; DuoNebs every 4 hours Methylprednisolone 40 mg every 8 Budesonide nebs twice daily. Will need to be started on inhaler at discharge. Azithromycin for 3 days Obtain D-dimer to rule out pulmonary embolism. Obtain hypertensive troponin Obtain Pro-Felice Wean off oxygen as tolerated. Will need pulmonary function test as outpatient. (4) Obesity: Plan: BMI noted to be 46.8 Weight loss counseling. Mood disorder; not on any medication. Currently taking medical marijuana. DVT prophylaxis heparin Full code DispoHome after resolution of medical issues. Time spent evaluating patient, direct bedside care, chart review, placing orders, interpretation of diagnostic studies, discussion with consultants, patient, and family members, as well as other required patient management activities is 75 minutes. Please note the above document was generated using voice recognition software. It may contain grammatical, syntax or spelling errors. Any formal questions or concerns about the content, text or information contained within the body of this dictation should be directly addressed to the provider for clarification History of Present Illness Chief Complaint: Shortness of breath Primary Care Provider: Tanesha Odonnell DO History obtained from chart review and patient. Past medical history of mood disorder, exercise-induced asthma, anxiety disorder, ongoing tobacco abuse. Patient presents to the ED with complaints of 2 days of increasing shortness of breath. She reports that she has been progressively getting short of breath; currently having difficulty climbing even 1 flight of stairs. She describes her sensation as lungs being " full" and not able to get enough air. She denies recent URI symptoms, chest pain, or fevers. She does report intermittent chills. She reports that she smokes half a pack a day; for several years. She also reports that she was diagnosed with exercise-induced asthma in the past. Currently, she is not on any inhalers. She reports that she only takes melatonin as medication presently. She has not seen doctors for past couple of years. She reports using marijuana using vape once a day. She lives with her mom along with her fianc, children and grand daughter. Denies any recent travel or any sick contacts. On presentation to the ED, she is hypertensive, requiring supplemental oxygen to maintain saturation. She received [id number] DuoNeb's in the ED; continued to be short of breath. 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 Allergies Allergy/AdvReac Type Severity Reaction Status Date / Time topiramate Allergy Unknown Hypotension Verified 09/28/21 12:37 /Syncope prednisone AdvReac Intermediate PSYCOTIC Verified 09/28/21 12:37 propranolol AdvReac Intermediate Hypotension Verified 09/28/21 12:37 /Syncope/Di zziness metoclopramide AdvReac Mild makes me Verified 09/28/21 12:37 feel "like i am on speed" Home Medications Medication Instructions Recorded Confirmed Type clonazepam 0.5 mg tablet (Klonopin) 0.5 mg PO TID PRN Anxiety 02/21/20 09/28/21 History ibuprofen 200 mg capsule 400 mg PO Q6H PRN Pain 03/02/20 09/28/21 History duloxetine 30 mg capsule,delayed 30 mg PO DAILY 09/28/21 09/28/21 History release lurasidone 40 mg tablet (Latuda) 40 mg PO DAILY 09/28/21 09/28/21 History melatonin 3 mg tablet 3 mg PO HS PRN Sleep 09/28/21 09/28/21 History naproxen 250 mg tablet 250 mg PO TID PRN pain #15 tabs 09/28/21 Rx albuterol sulfate 90 mcg/actuation 2 puffs inhalation 6XD PRN 02/28/22 Rx aerosol inhaler shortness of breath or wheezing #6.7 grams benzonatate 100 mg capsule 100 mg PO TID PRN cough #15 caps 05/30/22 Rx albuterol sulfate 90 mcg/actuation 2 inha inhalation QID PRN 01/31/23 Rx aerosol inhaler shortness of breath or wheezing #1 inhaler azithromycin 250 mg tablet See Rx Instructions PO .COMPLEX #6 01/31/23 Rx tabs dexamethasone 6 mg tablet 6 mg PO DAILY #5 tabs 01/31/23 Rx Past Med/Surg History Medical History (Updated 01/31/23 @ 17:33 by Lázaro Farias MD) Acute anxiety Bipolar disorder Bipolar II disorder Bronchitis Cannabis abuse (04/26/13) Carbon monoxide poisoning (11/03/13) Chest pain Chronic pelvic pain in female Cluster B personality disorder Deliberate self-cutting Depression Drug-seeking behavior Encounter for smoking cessation counseling Endoscopic retrograde cholangiopancreatography (02/22/13) Low back pain Marijuana use, continuous Medication refill Migraine Nausea Nausea, vomiting, and diarrhea Nicotine abuse Obesity (BMI 30-39.9) Pneumonia PTSD (post-traumatic stress disorder) Removal of ovarian cyst (02/22/13) Renal colic on left side SOB (shortness of breath) (11/03/13) Syncope Surgical History S/P BSO (bilateral salpingo-oophorectomy) S/P laparoscopic hysterectomy Family History Other No pertinent family history Denies family history of Sudden Social History Smoking Status: Current every day smoker Tobacco Type: Cigarettes Cigarettes Per Day: 10 ( hasnt smoked for 3 days due to illness); Do You Dip or Chew Tobacco: No; Hx Alcohol Use: No Hx Substance Use: Yes Last Used Substance: Unknown Preferred Language: P[place]in[place] Communication Ability: Effective Visual Impairment: No Limitations Hearing Ability: Normal Yacht Master Required: No Beliefs That Will Affect Care: None marital status: Current Living Situation: Family current occupational status: employed Feels Safe at Home: Yes Assistive Devices: None Review of Systems Review of Systems: All systems reviewed & are unremarkable except as noted in Subjective Physical Exam Physical Exam: Constitutional: Awake, alert orient x3; not in distress. Head: Normocephalic, Atraumatic Eyes: PERRL, conjunctivae normal, anicteric sclerae ENMT: external ear and nose normal, oropharynx normal Neck: trachea midline, no thyromegaly normal visual inspection Respiratory:Decreased air entry bilaterally; occasional wheeze. Cardiovascular: RRR, no murmur, no edema Vessels: no JVD or carotid bruit Chest: normal inspection of chest Abdomen: normal bowel sounds, soft, nontender, no hepatosplenomegaly Musculoskeletal: no cyanosis or clubbing, extremities motor strength 5/5 Skin: no rashes, warm and dry normal turgor Neurologic: PERRL, EOMI, accommodation nl, no face palsy, no dysarthria CN's II- XI intact bilaterally and moves all extremities Psychiatric: A+Ox3, euthymic affect Lymphatic: no cervical or axillary lymphadenopathy : deferred Results & Data Results & Data Vital Signs (Past 12 Hours) Vital Signs Temp Pulse Pulse Resp BP BP Pulse Ox 01/31/23 16:50 95 H 01/31/23 15:33 89 L 01/31/23 15:14 104 H 22 151/87 H 93 01/31/23 12:59 102 H 01/31/23 12:48 01/31/23 12:32 36.6 C 124 H 18 148/101 H 95 O2 Del Method O2 Flow Rate 01/31/23 16:50 01/31/23 15:33 Room Air 0 01/31/23 15:14 Room Air 01/31/23 12:59 01/31/23 12:48 Room Air 01/31/23 12:32 Room Air Laboratory Results Laboratory Results WBC 7.47 K/ul (4.8-10.8) 01/31/23 12:37 RBC 5.51 M/uL (4.20-5.40) H 01/31/23 12:37 Hgb 15.4 g/dl (12.0-16.0) 01/31/23 12:37 Hct 47.3 % (37.0-47.0) H 01/31/23 12:37 MCV 85.8 fL (80.0-100.0) 01/31/23 12:37 MCH 27.9 pg (25.0-34.0) 01/31/23 12:37 MCHC 32.6 g/dL (32.0-36.0) 01/31/23 12:37 RDW Std Deviation 40.6 fL (36.4-46.3) 01/31/23 12:37 RDW Coeff of Pérez 13.0 % (11.5-14.5) 01/31/23 12:37 Plt Count 264 K/uL (130-400) 01/31/23 12:37 MPV 10.5 fL (9.4-12.4) 01/31/23 12:37 Immature Gran % (Auto) 0.1 % 01/31/23 12:37 Neut % (Auto) 56.4 % 01/31/23 12:37 Lymph % (Auto) 27.6 % 01/31/23 12:37 [place] % (Auto) 8.4 % 01/31/23 12:37 Eos % (Auto) 6.6 % 01/31/23 12:37 Baso % (Auto) 0.9 % 01/31/23 12:37 Neut # (Auto) 4.21 K/uL (1.40-6.50) 01/31/23 12:37 Lymph # (Auto) 2.06 K/uL (1.2-3.4) 01/31/23 12:37 Trimble # (Auto) 0.63 K/uL (0.11-0.59) H 01/31/23 12:37 Eos # (Auto) 0.49 K/uL (0-0.50) 01/31/23 12:37 Baso # (Auto) 0.07 K/uL (0-0.2) 01/31/23 12:37 Immature Gran # (Auto) 0.01 K/uL (0.01-0.20) 01/31/23 12:37 VBG pH 7.29 (7.36-7.41) L 01/31/23 16:40 VBG pCO2 56 mmHg (38-50) H 01/31/23 16:40 VBG pO2 25 mmHg 01/31/23 16:40 VBG HCO3 27 mmol/L 01/31/23 16:40 VBG O2 Saturation < 60.0 % 01/31/23 16:40 VBG Base Excess -0.7 mEq/L 01/31/23 16:40 Sodium 137 mmol/L (136-145) 01/31/23 12:37 Potassium 3.8 mmol/L (3.5-5.1) 01/31/23 12:37 Chloride 105 mmol/L (98-107) 01/31/23 12:37 Carbon Dioxide 24 mmol/L (21-32) 01/31/23 12:37 Anion Gap 8 (3-11) 01/31/23 12:37 BUN 9 mg/dl (6-23) 01/31/23 12:37 Creatinine 0.81 mg/dl (0.6-1.2) 01/31/23 12:37 Est Cr Clr Drug Dosing 112.6 ml/min 01/31/23 12:37 Est GFR ( Amer) 106.0 ml/min 01/31/23 12:37 Est GFR (Non-Af Amer) 91.5 ml/min 01/31/23 12:37 BUN/Creatinine Ratio 11.1 (10-20) 01/31/23 12:37 Glucose 79 mg/dl (70-99(Fasting)) 01/31/23 12:37 Calcium 9.0 mg/dl (8.6-10.3) 01/31/23 12:37 SARS-CoV-2 (PCR) NEGATIVE (Negative) 01/31/23 12:55 Influenza Type A (PCR) Negative (Neg) 01/31/23 12:55 Influenza Type B (PCR) Negative (Neg) 01/31/23 12:55 RSV (RT-PCR) Negative (Neg) 01/31/23 12:55 Impressions Chest X-Ray 01/31/23 12:50 SINGLE VIEW CHEST CLINICAL HISTORY: Cough FINDINGS: An AP, portable, upright chest radiograph is compared to study dated 06/16/2022. The cardiomediastinal silhouette is unremarkable. The lungs and pleural spaces are clear. No pneumothorax is seen. The bony thorax is grossly intact. IMPRESSION: No active disease in the chest. ACT 112: Negative or not required by law. Electronically signed by: Alejandro Saeed M.D. 01/31/2023 1:38 PM Code Status & VTE Plan VTE Prophylaxis Plan VTE Prophylaxis will be ordered: Yes
--- NOTE | 2023-01-31 17:36 | Emergency Department Note ---
History of Present Illness General Chief Complaint: Shortness of Breath/Dyspnea Stated Complaint: LUNGS HURT, SOB Time Seen by Provider: 01/31/23 12:41 History of Present Illness Provider Complaint: shortness of breath and cough Onset (ago): day(s) (2) Severity: moderate Consistency/Duration: + progressively worsening Maximum Pain Intensity: 6 Relieved By: + nothing Exacerbated By: + coughing Context: no recent illness, no choking/aspiration or no recent travel Associated symptoms: + cough, + wheezing, + sputum production and + chest congestion; no chest pain, no pain with inspiration, no fever or no hemoptysis Home Medications Medication Instructions Recorded Confirmed Type clonazepam 0.5 mg tablet (Klonopin) 0.5 mg PO TID PRN Anxiety 02/21/20 09/28/21 History ibuprofen 200 mg capsule 400 mg PO Q6H PRN Pain 03/02/20 09/28/21 History duloxetine 30 mg capsule,delayed 30 mg PO DAILY 09/28/21 09/28/21 History release lurasidone 40 mg tablet (Latuda) 40 mg PO DAILY 09/28/21 09/28/21 History melatonin 3 mg tablet 3 mg PO HS PRN Sleep 09/28/21 09/28/21 History naproxen 250 mg tablet 250 mg PO TID PRN pain #15 tabs 09/28/21 Rx albuterol sulfate 90 mcg/actuation 2 puffs inhalation 6XD PRN 02/28/22 Rx aerosol inhaler shortness of breath or wheezing #6.7 grams benzonatate 100 mg capsule 100 mg PO TID PRN cough #15 caps 02/28/22 Rx albuterol sulfate 90 mcg/actuation 2 inha inhalation QID PRN 01/31/23 Rx aerosol inhaler shortness of breath or wheezing #1 inhaler azithromycin 250 mg tablet See Rx Instructions PO .COMPLEX #6 01/31/23 Rx tabs dexamethasone 6 mg tablet 6 mg PO DAILY #5 tabs 01/31/23 Rx Allergies Allergy/AdvReac Type Severity Reaction Status Date / Time topiramate Allergy Unknown Hypotension Verified 09/28/21 12:37 /Syncope prednisone AdvReac Intermediate PSYCOTIC Verified 09/28/21 12:37 propranolol AdvReac Intermediate Hypotension Verified 09/28/21 12:37 /Syncope/Di zziness metoclopramide AdvReac Mild makes me Verified 09/28/21 12:37 feel "like i am on speed" Past Med/Surg History Medical History (Updated 01/31/23 @ 17:43 by Nabor Dobson MD) Acute anxiety Bipolar disorder Bipolar II disorder Bronchitis Cannabis abuse (04/26/13) Carbon monoxide poisoning (11/03/13) Chest pain Chronic pelvic pain in female Cluster B personality disorder Deliberate self-cutting Depression Drug-seeking behavior Encounter for smoking cessation counseling Endoscopic retrograde cholangiopancreatography (02/22/13) Low back pain Marijuana use, continuous Medication refill Migraine Nausea Nausea, vomiting, and diarrhea Nicotine abuse Obesity (BMI 30-39.9) Pneumonia PTSD (post-traumatic stress disorder) Removal of ovarian cyst (02/22/13) Renal colic on left side SOB (shortness of breath) (11/03/13) Syncope Surgical History S/P BSO (bilateral salpingo-oophorectomy) S/P laparoscopic hysterectomy Family History Other No pertinent family history Denies family history of Sudden Social History Smoking Status: Current every day smoker Tobacco Type: Cigarettes Cigarettes Per Day: 10 ( hasnt smoked for 3 days due to illness); Do You Dip or Chew Tobacco: No; Hx Alcohol Use: No Hx Substance Use: Yes Last Used Substance: Unknown Preferred Language: Senegalese Communication Ability: Effective Visual Impairment: No Limitations Hearing Ability: Normal Marketing Communications Assistant Required: No Beliefs That Will Affect Care: None marital status: Current Living Situation: Family current occupational status: employed Feels Safe at Home: Yes Assistive Devices: None Physical Exam Vital Signs: Vital Signs - 24 hr 01/31/23 12:32 01/31/23 12:48 01/31/23 12:59 Temperature 36.6 C Temperature Source Temporal Artery Sc an Pulse Rate 124 H 102 H Pulse Rate [Apical ] Pulse Rhythm [Apic al] Respiratory Rate 18 Respiratory Effort / Characteristics Non-Labored Respiratory Depth Normal Respiratory Patter n Blood Pressure 148/101 H Blood Pressure [Ri ght Arm] Blood Pressure Marta n 116 Blood Pressure Marta n [Right Arm] Blood Pressure Pos ition Sitting Blood Pressure Pos ition [Right Arm] Pulse Oximetry 95 Oxygen Delivery Me thod Room Air Room Air Oxygen Flow Rate Sepsis Recent Feve r Within 48 Hours No Sepsis New/Unexpla ined Change in Men catal[place] Status No Sepsis Action Take n by Nursing No Action Required Oxygen Flow Rate - Titration Pulse Oximetry Pos t Tiitration 01/31/23 15:14 01/31/23 15:33 01/31/23 16:50 Temperature Temperature Source Pulse Rate 95 H Pulse Rate [Apical ] 104 H Pulse Rhythm [Apic al] Regular Respiratory Rate 22 Respiratory Effort / Characteristics Non-Labored Sponta neous Respiratory Depth Normal Respiratory Patter n Regular Blood Pressure Blood Pressure [Ri ght Arm] 151/87 H Blood Pressure Marta n Blood Pressure Marta n [Right Arm] 108 Blood Pressure Pos ition Blood Pressure Pos ition [Right Arm] Lying Pulse Oximetry 93 89 L Oxygen Delivery Me thod Room Air Room Air Oxygen Flow Rate 0 Sepsis Recent Feve r Within 48 Hours Sepsis New/Unexpla ined Change in Men [place] Status Sepsis Action Take n by Nursing Oxygen Flow Rate - Titration 2 Pulse Oximetry Pos t Tiitration 94 Physical Exam: Physical Exam GENERAL: oriented to person, place, and time. appears well-developed and well- nourished. HENT: Exam performed. - Head: Normocephalic and atraumatic. EYES: Conjunctivae and EOM are normal. Right eye exhibits no discharge. Left eye exhibits no discharge. No scleral icterus. NECK: Normal range of motion. Neck supple. No JVD present. CV: Normal rate, regular rhythm, normal heart sounds and intact distal pulses. There is no peripheral edema. Palpable radial pulses bue. PULM/CHEST: Diffuse expiratory wheezes bilaterally. NEURO: Motor and sensation grossly intact. SKIN: Skin is warm and dry. He is not diaphoretic. PSYCH: normal mood and affect. Behavior is normal. Judgment and thought content normal. Course Course 1241: The patient was evaluated in room B9. A complete history and physical exam was performed Cardiac monitoring: An order was placed for continuous cardiac monitoring. The monitor shows a rate of 110 with sinus rhythm interpreted by me 1530: Vital signs stable. Status post 3 DuoNebs patient is still wheezing. Chest x-ray COVID swab negative. We will plan on discharging the patient with prescription azithromycin albuterol and steroids. 1630: As the patient was getting ready for discharge she started having shortness of breath and the oxygen saturation was applied to the patient and the patient was having hypoxia with saturations at 88 to 89% on room air. Patient was applied supplemental oxygen which improved her oxygen saturation. Labs will be drawn we will plan on admitting the patient to the [facility] team. 1741: Vital signs stable supplemental oxygen via nasal cannula. Labs and imaging within normal limits with the exception of venous blood gas which shows a venous pH of 7.29 with a venous PCO2 of 56. Patient will be admitted to the [facility] team Dr. Farias aware. Administered Medications Discontinued Medications Albuterol (Albut/Ipratrop 3mg/0.5mg Neb 3 Ml Vial) 3 ml NEB NOW STA; Protocol Stop: 01/31/23 12:51 Last Admin: 01/31/23 13:03 Dose: 3 ml Documented By: JONNATHAN Albuterol (Albut/Ipratrop 3mg/0.5mg Neb 3 Ml Vial) 3 ml NEB NOW STA; Protocol Stop: 01/31/23 12:52 Last Admin: 01/31/23 13:03 Dose: 3 ml Documented By: JONNATHAN Albuterol (Albut/Ipratrop 3mg/0.5mg Neb 3 Ml Vial) 3 ml NEB NOW STA; Protocol Stop: 01/31/23 14:41 Last Admin: 01/31/23 15:03 Dose: 3 ml Documented By: JONNATHAN Azithromycin (Azithromycin 250 Mg Tab) 500 mg PO NOW ONE Stop: 01/31/23 16:32 Last Admin: 01/31/23 16:35 Dose: 500 mg Documented By: GIULIANA Methylprednisolone (Methylprednisolone 125 Mg/2 Ml Vial) 125 mg IV NOW STA Stop: 01/31/23 15:19 Last Admin: 01/31/23 15:28 Dose: 125 mg Documented By: KIANNA Medical Decision Making Laboratory Data Attestation: I reviewed the patient's lab results. 01/31/23 12:37 01/31/23 12:37 Lab Results 01/31/23 01/31/23 01/31/23 Range/Units 12:37 12:37 12:55 WBC 7.47 (4.8-10.8) K/ul RBC 5.51 H (4.20-5.40) M/uL Hgb 15.4 (12.0-16.0) g/dl Hct 47.3 H (37.0-47.0) % MCV 85.8 (80.0-100.0) fL MCH 27.9 (25.0-34.0) pg MCHC 32.6 (32.0-36.0) g/dL RDW Std Deviation 40.6 (36.4-46.3) fL RDW Coeff of Pérez 13.0 (11.5-14.5) % Plt Count 264 (130-400) K/uL MPV 10.5 (9.4-12.4) fL Immature Gran % (Auto) 0.1 % Neut % (Auto) 56.4 % Lymph % (Auto) 27.6 % [place] % (Auto) 8.4 % Eos % (Auto) 6.6 % Baso % (Auto) 0.9 % Neut # (Auto) 4.21 (1.40-6.50) K/uL Lymph # (Auto) 2.06 (1.2-3.4) K/uL [place] # (Auto) 0.63 H (0.11-0.59) K/uL Eos # (Auto) 0.49 (0-0.50) K/uL Baso # (Auto) 0.07 (0-0.2) K/uL Immature Gran # (Auto) 0.01 (0.01-0.20) K/uL VBG pH (7.36-7.41) VBG pCO2 (38-50) mmHg VBG pO2 mmHg VBG HCO3 mmol/L VBG O2 Saturation % VBG Base Excess mEq/L Sodium 137 (136-145) mmol/L Potassium 3.8 (3.5-5.1) mmol/L Chloride 105 (98-107) mmol/L Carbon Dioxide 24 (21-32) mmol/L Anion Gap 8 (3-11) BUN 9 (6-23) mg/dl Creatinine 0.81 (0.6-1.2) mg/dl Est Cr Clr Drug Dosing 112.6 ml/min Est GFR ( Amer) 106.0 ml/min Est GFR (Non-Af Amer) 91.5 ml/min BUN/Creatinine Ratio 11.1 (10-20) Glucose 79 (70-99(Fasting)) mg/dl Calcium 9.0 (8.6-10.3) mg/dl SARS-CoV-2 (PCR) NEGATIVE (Negative) Influenza Type A (PCR) Negative (Neg) Influenza Type B (PCR) Negative (Neg) RSV (RT-PCR) Negative (Neg) 01/31/23 Range/Units 16:40 WBC (4.8-10.8) K/ul RBC (4.20-5.40) M/uL Hgb (12.0-16.0) g/dl Hct (37.0-47.0) % MCV (80.0-100.0) fL MCH (25.0-34.0) pg MCHC (32.0-36.0) g/dL RDW Std Deviation (36.4-46.3) fL RDW Coeff of Pérez (11.5-14.5) % Plt Count (130-400) K/uL MPV (9.4-12.4) fL Immature Gran % (Auto) % Neut % (Auto) % Lymph % (Auto) % [place] % (Auto) % Eos % (Auto) % Baso % (Auto) % Neut # (Auto) (1.40-6.50) K/uL Lymph # (Auto) (1.2-3.4) K/uL [place] # (Auto) (0.11-0.59) K/uL Eos # (Auto) (0-0.50) K/uL Baso # (Auto) (0-0.2) K/uL Immature Gran # (Auto) (0.01-0.20) K/uL VBG pH 7.29 L (7.36-7.41) VBG pCO2 56 H (38-50) mmHg VBG pO2 25 mmHg VBG HCO3 27 mmol/L VBG O2 Saturation < 60.0 % VBG Base Excess -0.7 mEq/L Sodium (136-145) mmol/L Potassium (3.5-5.1) mmol/L Chloride (98-107) mmol/L Carbon Dioxide (21-32) mmol/L Anion Gap (3-11) BUN (6-23) mg/dl Creatinine (0.6-1.2) mg/dl Est Cr Clr Drug Dosing ml/min Est GFR ( Amer) ml/min Est GFR (Non-Af Amer) ml/min BUN/Creatinine Ratio (10-20) Glucose (70-99(Fasting)) mg/dl Calcium (8.6-10.3) mg/dl SARS-CoV-2 (PCR) (Negative) Influenza Type A (PCR) (Neg) Influenza Type B (PCR) (Neg) RSV (RT-PCR) (Neg) Imaging Data Attestation: I personally reviewed and interpreted this imaging study as follows: My Impression: Chest x-ray negative. Airway clear. No pneumothorax. No consolidation. No cardiomegaly or cephalization.. No free air under the diaphragm. No fractures of the skeletal structures. Radiologist's Impression: Chest X-Ray 01/31/23 12:50 SINGLE VIEW CHEST CLINICAL HISTORY: Cough FINDINGS: An AP, portable, upright chest radiograph is compared to study dated 06/16/2022. The cardiomediastinal silhouette is unremarkable. The lungs and pleural spaces are clear. No pneumothorax is seen. The bony thorax is grossly intact. IMPRESSION: No active disease in the chest. ACT 112: Negative or not required by law. Electronically signed by: Alejandro Saeed M.D. 01/31/2023 1:38 PM ECG Data Attestation: I personally reviewed and interpreted this ECG as follows: Interpretation: Sinus tachycardia with a rate of 117. [place] 152 QRS [address] elevation or ST depression. [facility] Narrative 1241: The patient was evaluated in room B9. A complete history and physical exam was performed Cardiac monitoring: An order was placed for continuous cardiac monitoring. The monitor shows a rate of 110 with sinus rhythm interpreted by sd 1530: Vital signs stable. Status post 3 DuoNebs patient is still wheezing. Chest x-ray COVID swab negative. We will plan on discharging the patient with prescription azithromycin albuterol and steroids. 1630: As the patient was getting ready for discharge she started having shortness of breath and the oxygen saturation was applied to the patient and the patient was having hypoxia with saturations at 88 to 89% on room air. Patient was applied supplemental oxygen which improved her oxygen saturation. Labs will be drawn we will plan on admitting the patient to the [facility] team. 1741: Vital signs stable supplemental oxygen via nasal cannula. Labs and imaging within normal limits with the exception of venous blood gas which shows a venous pH of 7.29 with a venous PCO2 of 56. Patient will be admitted to the [facility] team Dr. Jarrett mojica. Impression & Plan Hypoxia, URI (upper respiratory infection) Critical Care Time Critical Care Time: Yes Total Critical Care Time: 39 I have personally spent greater than 39 minutes of critical care time in the direct management of this patient. This includes bedside care, interpretation of diagnostic studies, and testing, discussion with consultants, patient, and family members, and other required patient management activities. This 39 minutes is in excess of all separately billable procedures. Discharge Plan Visit Data Chief Complaint: Shortness of Breath/Dyspnea Stated Complaint: LUNGS HURT, SOB ED Provider: Nabor Dobson Discharge Problem: Hypoxia, URI (upper respiratory infection) Patient Disposition: Admitted As Inpatient Discharge Instructions Silver/Other Patient Handouts: ED How to Quit Smoking, ED URI, Viral, No Abx (Adult) Forms Stand Alone Forms: My [facility], Virtual Emergency Department, Important Visit Information Prescriptions Prescriptions: New dexamethasone 6 mg tablet 6 mg PO DAILY Qty: 5 0RF azithromycin 250 mg tablet See Rx Instructions .ROUTE .COMPLEX Qty: 6 0RF Rx Instructions: take 500 mg today (day 1), then 250 mg for 4 days (days 2-5) albuterol sulfate 90 mcg/actuation HFA aerosol inhaler 2 inha INH QID PRN (Reason: shortness of breath or wheezing) Qty: 1 0RF No Action clonazepam [Klonopin] 0.5 mg tablet 0.5 mg PO TID PRN (Reason: Anxiety) ibuprofen 200 mg Capsule 400 mg PO Q6H PRN (Reason: Pain) melatonin 3 mg Tablet 3 mg PO HS PRN (Reason: Sleep) duloxetine 30 mg capsule,delayed release(DR/EC) 30 mg PO DAILY Rx Instructions: Ran out of a week & a half ago. Latuda 40 mg tablet 40 mg PO DAILY Rx Instructions: has not had for a week and a half. naproxen 250 mg tablet 250 mg PO TID PRN (Reason: pain) Qty: 15 0RF benzonatate 100 mg capsule 100 mg PO TID PRN (Reason: cough) Qty: 15 0RF albuterol sulfate 90 mcg/actuation HFA aerosol inhaler 2 puffs INH 6XD PRN (Reason: shortness of breath or wheezing) Qty: 6.7 0RF Referrals Referrals: Tanesha Odonnell DO [Primary Care Provider] - (Follow-up in 1-7 days.)
[2023-01-31] MEDS ORDERED: ALUMINUM/MAGNESIUM SUSP 30 ML UDC PO PRN (18:42)
[2023-01-31] MEDS ORDERED: ACETAMINOPHEN 325 MG TAB PO PRN (18:42)
[2023-01-31] MEDS ORDERED: MELATONIN 3 MG TAB PO PRN (18:46)
[2023-01-31] MEDS ORDERED: ALBUT/IPRATROP 3MG/0.5MG NEB 3 ML VIAL NEB PRN (18:48)
[2023-01-31 18:54] LABS: D Dimer 680 ug/L FEU (0-500)
[2023-01-31] MEDS: BUDESONIDE 0.5 MG/2 ML VIAL (PULMICORT) NEB SCH (19:32)
[2023-01-31] MEDS: ALBUT/IPRATROP 3MG/0.5MG NEB 3 ML VIAL NEB SCH ×2 (19:32→23:00)
[2023-01-31] MEDS ORDERED: OPTIRAY 320 500ml IV ONE (20:21)
--- NOTE | 2023-01-31 20:37 | Electrocardiogram Report ---
Test Reason : Blood Pressure : / mmHG Vent. Rate : 117 BPM Atrial Rate : 117 BPM P-R Int : 152 ms QRS Dur : 074 ms QT Int : 318 ms P-R-T Axes : 068 -61 049 degrees QTc Int : 443 ms Sinus tachycardia Possible Left atrial enlargement Pulmonary disease pattern Left anterior fascicular block Abnormal ECG When compared with ECG of 16-JUN-2022 14:29, No significant change was found Confirmed by Tomer Castellano ([id number]) on 01/31/2023 8:37:27 PM Referred By: REFERRED SELF Confirmed By:Tomer Castellano
[2023-01-31 20:38] LABS: Partial Thromboplastin Time 28.5 Seconds (21.0-31.0)
--- NOTE | 2023-01-31 21:05 | CT Scan Report ---
Exam(s): CTA CHEST IV Amt: 117ml optiray 320 EXAM: CT Angiography Chest With Intravenous Contrast CLINICAL HISTORY: Reason for exam: RUle out PE. TECHNIQUE: Axial computed tomographic angiography images of the chest with intravenous contrast. CTDI is 24.77 mGy and DLP is 801.64 mGy-cm. Automated exposure control was utilized for the study. A dose lowering technique was utilized adhering to the principles of ALARA. MIP reconstructed images were created and reviewed. COMPARISON: No relevant prior studies available. FINDINGS: Pulmonary arteries: Unremarkable. No pulmonary embolism. Aorta: No acute findings. No thoracic aortic aneurysm. Lungs: Unremarkable. No mass. No consolidation. Pleural space: Unremarkable. No significant effusion. No pneumothorax. Heart: Unremarkable. No cardiomegaly. No significant pericardial effusion. No evidence of RV dysfunction. Bones/joints: No acute fracture. No dislocation. Soft tissues: Unremarkable. Lymph nodes: Unremarkable. No enlarged lymph nodes. Gallbladder and bile ducts: Cholecystectomy. IMPRESSION: No acute findings in the visualized arteries of the chest. Electronically signed by: Az Carrillo MD 01/31/23 21:04 PM
--- NOTE | 2023-01-31 21:06 | Electrocardiogram Report ---
Test Reason : Blood Pressure : / mmHG Vent. Rate : 094 BPM Atrial Rate : 094 BPM P-R Int : 150 ms QRS Dur : 070 ms QT Int : 360 ms P-R-T Axes : 046 -16 020 degrees QTc Int : 450 ms Normal sinus rhythm Possible Left atrial enlargement Borderline ECG When compared with ECG of 31-JAN-2023 12:39, (unconfirmed) QRS axis Shifted right Confirmed by Tomer Castellano ([id number]) on 01/31/2023 9:05:37 PM Referred By: REFERRED SELF Confirmed By:Tomer Castellano
[2023-01-31] MEDS: HEPARIN SOD 5,000 UNIT/0.5 ML VIAL SQ SCH (21:41)
[2023-01-31] MEDS: methylPREDNISolone 40 MG in SYRINGE 0 ML IV SCH (21:42)
[2023-02-01] MEDS: ALBUT/IPRATROP 3MG/0.5MG NEB 3 ML VIAL NEB SCH ×3 (02:37→10:56)
[2023-02-01] MEDS: methylPREDNISolone 40 MG in SYRINGE 0 ML IV SCH (06:27)
[2023-02-01] MEDS: HEPARIN SOD 5,000 UNIT/0.5 ML VIAL SQ SCH (06:27)
[2023-02-01] MEDS: BUDESONIDE 0.5 MG/2 ML VIAL (PULMICORT) NEB SCH (07:20)
[2023-02-01 07:46] LABS: Basophils # (auto) 0.01 K/uL (0-0.2); Basophils % (auto) 0.1 %; Hematocrit (blood only) 43.3 % (37.0-47.0); Hemoglobin 14.8 g/dl (12.0-16.0); Immature Granulocytes # (auto) 0.07 K/uL (0.01-0.20); Immature Granulocytes % (auto) 0.9 %; Lymphocytes # (auto) 0.71 K/uL (1.2-3.4); Lymphocytes % (auto) 8.8 %; Mean Corpuscular Hemoglobin 28.2 pg (25.0-34.0); Mean Corpuscular Hgb Conc 34.2 g/dL (32.0-36.0); Mean Corpuscular Volume 82.5 fL (80.0-100.0); Mean Platelet Volume 10.4 fL (9.4-12.4); Monocytes # (auto) 0.07 K/uL (0.11-0.59); Monocytes % (auto) 0.9 %; Neutrophils # (auto) 7.18 K/uL (1.40-6.50); Neutrophils % (auto) 89.3 %; Platelet Count 284 K/uL (130-400); RDW Coefficient of Variation 12.9 % (11.5-14.5); RDW Standard Deviation 38.9 fL (36.4-46.3); Red Blood Count 5.25 M/uL (4.20-5.40); White Blood Count 8.04 K/ul (4.8-10.8)
[2023-02-01 08:03] LABS: BUN Creatinine Ratio 15.4 (10-20); Calcium 9.2 mg/dl (8.6-10.3); Creatinine Clr Calc Pharmacy 140.3 ml/min; Est GFR (African American) 129.6 ml/min; Est GFR (Non-African American) 111.8 ml/min; Potassium 4.4 mmol/L (3.5-5.1)
[2023-02-01] MEDS ORDERED: AZITHROMYCIN 250 MG TAB PO SCH (09:00)
--- NOTE | 2023-02-01 11:44 | Discharge Summary ---
Date of Service February 01, 2023 Admission HPI Per Admitting Provider History obtained from chart review and patient. Past medical history of mood disorder, exercise-induced asthma, anxiety disorder, ongoing tobacco abuse. Patient presents to the ED with complaints of 2 days of increasing shortness of breath. She reports that she has been progressively getting short of breath; currently having difficulty climbing even 1 flight of stairs. She describes her sensation as lungs being " full" and not able to get enough air. She denies recent URI symptoms, chest pain, or fevers. She does report intermittent chills. She reports that she smokes half a pack a day; for several years. She also reports that she was diagnosed with exercise-induced asthma in the past. Currently, she is not on any inhalers. She reports that she only takes melatonin as medication presently. She has not seen doctors for past couple of years. She reports using marijuana using vape once a day. She lives with her mom along with her fianc, children and grand daughter. Denies any recent travel or any sick contacts. On presentation to the ED, she is hypertensive, requiring supplemental oxygen to maintain saturation. She received [id number] DuoNeb's in the ED; continued to be short of breath. 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 Head: Normocephalic, Atraumatic Eyes: PERRL, conjunctivae normal, anicteric sclerae ENMT: external ear and nose normal, oropharynx normal Neck: trachea midline, no thyromegaly normal visual inspection Respiratory:Decreased air entry bilaterally; occasional wheeze. Cardiovascular: RRR, no murmur, no edema Vessels: no JVD or carotid bruit Chest: normal inspection of chest Abdomen: normal bowel sounds, soft, nontender, no hepatosplenomegaly Musculoskeletal: no cyanosis or clubbing, extremities motor strength 5/5 Skin: no rashes, warm and dry normal turgor Neurologic: PERRL, EOMI, accommodation nl, no face palsy, no dysarthria CN's II- XI intact bilaterally and moves all extremities Psychiatric: A+Ox3, euthymic affect Lymphatic: no cervical or axillary lymphadenopathy : deferred Principal Diagnosis (1) Acute respiratory failure: (2) Asthma exacerbation with COPD (chronic obstructive pulmonary disease): (3) Tobacco use: Discharge Exam Constitutional: Awake, alert orient x3; not in distress. Head: Normocephalic, Atraumatic Eyes: PERRL, conjunctivae normal, anicteric sclerae ENMT: external ear and nose normal, oropharynx normal Neck: trachea midline, no thyromegaly normal visual inspection Respiratory: Bilateral clear breath sounds. Cardiovascular: RRR, no murmur, no edema Vessels: no JVD or carotid bruit Chest: normal inspection of chest Abdomen: normal bowel sounds, soft, nontender, no hepatosplenomegaly Musculoskeletal: no cyanosis or clubbing, extremities motor strength 5/5 Skin: no rashes, warm and dry normal turgor Neurologic: PERRL, EOMI, accommodation nl, no face palsy, no dysarthria CN's II- XI intact bilaterally and moves all extremities Psychiatric: A+Ox3, euthymic affect Lymphatic: no cervical or axillary lymphadenopathy : deferred Discharge Data Allergies Allergy/AdvReac Type Severity Reaction Status Date / Time topiramate Allergy Unknown Hypotension Verified 09/28/21 12:37 /Syncope prednisone AdvReac Intermediate PSYCOTIC Verified 09/28/21 12:37 propranolol AdvReac Intermediate Hypotension Verified 09/28/21 12:37 /Syncope/Di zziness metoclopramide AdvReac Mild makes me Verified 09/28/21 12:37 feel "like i am on speed" Consultations 01/31/23 16:31 ED Decision to Admit Stat Ordered Studies 01/31/23 18:58 CT angio chest PE protocol Urgent Hospital Course (1) Acute respiratory failure: (2) Asthma exacerbation with COPD (chronic obstructive pulmonary disease): (3) Tobacco use: (4) Obesity: Past medical history of exercise-induced asthma, ongoing tobacco abuse. Not on any inhalers. Presents with shortness of breath for 2 days. Oxygen saturation less than 90% in room air; tachypneic on presentation(RR >22) Labs personally reviewed; no leukocytosis. VBG reviewed; consistent with acute respiratory acidosis with pH of 7.29. COVID-19 negative, flu, RSV negative. Chest x-ray viewed and reviewed; no infiltrates present. EKG personally reviewed; normal sinus rhythm; possible left atrial enlargement. QTc 450. High sensitive troponin negative D-dimer is slightly elevated CT angio chest was done did not show any PE. No pneumonia. Plan During the hospitalization, patient was treated with [id number] DuoNeb, IV steroids, budesonide inhalation and azithromycin. Her shortness of breath improved; two-step oxygenation evaluation was done. She did not require any supplemental oxygen. Patient was discharged on azithromycin, Medrol Dosepak and albuterol inhaler. Patient is unable to afford Advair due to insurance issues. Patient was instructed to follow-up with PCP and obtain pulmonology referral. Please note the above document was generated using voice recognition software. It may contain grammatical, syntax or spelling errors. Any formal questions or concerns about the content, text or information contained within the body of this dictation should be directly addressed to the provider for clarification Total Time Total Time Spent Total Time Spent (In Minutes): 45 Total Time Includes: Examination of the Patient, Discharge Planning, Medication Reconciliation, Communication With Other Providers and Other Discharge Plan Discharge Items Patient Disposition: Home - Self-Care Reason For Visit: SOB Discharge Diagnosis: (1) Acute respiratory failure: (2) Asthma exacerbation with COPD (chronic obstructive pulmonary disease): Activity: Resume your previous activity Non-emergency contact: Primary Care Provider Call non-emergency contact if: you have any medication questions and your symptoms worsen Follow-up/Referrals: Tanesha Odonnell, [Primary Care Provider] - (If you would like to follow up with [facility] ([facility]), please call . If you would like to resume with Dr Odonnell at [facility], please call . ) Diet: Regular Addtl Attending Provider Instructions: You were admitted to the hospital with shortness of breath. The likely underlying cause for it is asthma exacerbation. You are prescribed following medication 1. Medrol Dosepak. The prescription is phoned over to [facility] pharmacy. 2. Azithromycin 500 mg once tomorrow 3. Albuterol inhaler as needed for shortness of breath. You need to follow-up with your primary care doctor as scheduled. Please obtain pulmonology referral with your primary care docto Pending Studies at Discharge: No Stand-Alone Forms: My [facility], Smoking Cessation Medications and DC Order Prescriptions: New azithromycin 250 mg Tablet 500 mg PO QAM 1 Days Qty: 2 0RF fluticasone propion-salmeterol [Advair Diskus] 100-50 mcg/dose blister with device 1 inh inhalation DAILY Qty: 60 0RF albuterol sulfate 90 mcg/actuation HFA aerosol inhaler 1 inh inhalation Q6H PRN (Reason: shortness of breath or wheezing) Qty: 6.7 0RF Continued melatonin 3 mg Capsule 3 mg PO HS PRN (Reason: Sleep) Discharge Orders: Discharge Order (Routine); Ordered 02/01/23 Ordered By: Lázaro Farias Admission Data Admit Date/Time: 01/31/23 17:17 Attending Provider: Lázaro Farias Admit Provider: Lázaro Farias Primary Care Provider: Tanesha Odonnell Other Providers: Lázaro Farias
== END 2023-02-01 13:15 | disposition home or self-care (01) | DRG 189 ==
LOC: ED 12:29 → 2N 17:17